=== PATIENT | male | born 1980 ===

== ENCOUNTER → 2019-12-29 13:33 | Outpatient (BNVA) | payer SELFPAY | PROVIDERS: PCP Internal Medicine; Referring Provider Internal Medicine; Visit Provider Nurse Practitioner | DX: Z76.89 Persons encountering health services in other specified circumstances (principal) ==

== ENCOUNTER → 2020-01-18 08:24 | Outpatient (REF) | payer OTHER, SELFPAY ==
--- NOTE | 2020-01-18 08:25 | NM_ITS ---
EXAMINATION: BILIARY TRACT IMAGING STUDY WITH CCK CLINICAL INFORMATION: Calculus of gallbladder without cholecystitis or obstruction.. COMPARISON: No previous biliary scan is available for comparison. Abdominal ultrasound dated 12/04/2019 is available for comparison.. TECHNIQUE: Serial gamma scintillation camera images were obtained over the abdomen for a total observation period of 120 minutes following the intravenous administration of 5 mCi Tc-99m Mebrofenin. FINDINGS: There is good concentration of activity in the liver by 5 minutes post injection. Biliary activity is visualized by 15 minutes. The gallbladder is well visualized by 50 minutes. Small bowel is well visualized by 20 minutes. At 85 minutes post radiopharmaceutical injection, a 30-minute infusion of 2.6 micrograms Sincalide was then begun and an additional 30 minutes of images were obtained. There is very minimal, if any gallbladder emptying during the sincalide infusion. At the end of the study there is marked abnormal retention of activity in the gallbladder. Diffuse small bowel activity is visualized at this time and there is almost complete clearance of activity from the liver. The calculated gallbladder ejection fraction is 6% (normal gallbladder ejection fraction is greater than 35%). NM/NM hepatobiliary w pharm IMPRESSION: 1. Visualization of the gallbladder is evidence of a patent cystic duct and strong evidence against the diagnosis of acute cholecystitis. The common bile duct is patent. Liver function appears normal. 2. Poor gallbladder emptying and a low gallbladder ejection fraction are evidence of impaired gallbladder contractility and most likely due to chronic cholecystitis.
== END ==
LOC: HO.NUCMED 08:24
PROVIDERS: PCP Internal Medicine; Visit Provider Nurse Practitioner
DX: K80.20 Calculus of gallbladder without cholecystitis without obstruction (principal)
CPT/HCPCS: 78227; A9537

== ENCOUNTER → 2020-02-06 15:51 | Outpatient (BNVA) | payer OTHER, SELFPAY | PROVIDERS: Visit Provider Nurse Practitioner | DX: Z76.89 Persons encountering health services in other specified circumstances (principal) ==

== ENCOUNTER → 2020-02-14 14:41 | Outpatient (BNVA) | payer OTHER, SELFPAY | PROVIDERS: PCP Internal Medicine; Visit Provider Surgery | DX: Z76.89 Persons encountering health services in other specified circumstances (principal) ==

== ENCOUNTER 2020-03-18 06:13 | Day surgery (SDC) | payer OTHER, SELFPAY ==
[2020-03-06 15:07] VITALS: BMI 38.7
--- NOTE | 2020-03-11 14:15 | P.CONAN_ITS ---
Documented by User: Shanda Jhaveri 03/11/20 14:16 HPI - Anesthesia Eval Consult details Narrative: 39yo M for Cholecystectomy Laparoscopic, Poss Open PMFSH Past Medical History Medical History Acalculous cholecystitis Diabetes mellitus Hypertension IBS (irritable bowel syndrome) Increased BMI HALI on CPAP Smoker Family History Family History Father Diabetes Mother Diabetes Sister Diabetes Surgical History Surgical History History of back surgery History of surgery Social History Social History Are you a primary auto care center manager to a significant other at home: No Do you presently have visiting nurse or other home services: No Alcohol intake: current Alcohol intake frequency: holidays/special occasions only Smoking Status: Current every day smoker Tobacco Type: Cigarette Packs Per Day: 0.5 Cigarettes Per Day: 10.0 Years Smoked: 25 Smoked in Last 30 Days: Yes Patient Interested in Nicotine Replacement: No Patient Given Instructions on How to Stop Smoking: Yes Date Education Initiated: 03/06/20 Use of substances other than those prescribed or required for medical reasons: No Have you been hit, kicked, punched, or otherwise hurt by someone within the past year? If so, by whom?: No Advance Directives: No Advance Directives Information Provided: No Advance Directives on File: No Recently lost weight without trying: No Meds Allergies Allergy/AdvReac Type Severity Reaction Status Date / Time No Known Allergies Allergy Verified 02/06/20 15:51 Home Medications Medication Instructions Recorded Confirmed Type hydrocortisone 2.5 % topical cream 1 applic IN BID-QID PRN 12/28/19 03/06/20 History with perineal applicator simethicone 180 mg capsule 180 mg PO QID PRN cap 12/28/19 03/06/20 History insulin degludec [Tresiba 25 unit SUBCUT DAILY 03/06/20 03/06/20 History FlexTouch U-100] Exam Exam Date and Time: March 11, 2020 1415 Height,Weight and Vital Signs: Height 6 ft Weight 129.727 kg Pertinent Lab Results Pertinent Lab Results: Laboratory Tests 12/04/19 12/04/19 09:06 09:06 WBC 8.0 Hgb 14.4 Hct 42.8 Plt Count 215 Sodium 136 Potassium 4.1 Chloride 104 BUN 11 Creatinine 0.67 Assessment and Plan Assessment Anesthesia Assessment: Chart Reviewed Documented by User: Selena Herrera 03/18/20 07:35 PMFSH Past Medical History Medical History Acalculous cholecystitis Diabetes mellitus Hypertension IBS (irritable bowel syndrome) Increased BMI HALI on CPAP Smoker Family History Family History Father Diabetes Mother Diabetes Sister Diabetes Family history of problems with anesthesia: No Surgical History Surgical History History of back surgery History of surgery History of Problems with Anesthesia: No Social History Social History Are you a primary auto care center manager to a significant other at home: No Do you presently have visiting nurse or other home services: No Alcohol intake: current Alcohol intake frequency: holidays/special occasions only Smoking Status: Current every day smoker Tobacco Type: Cigarette Packs Per Day: 0.5 Cigarettes Per Day: 10.0 Years Smoked: 25 Smoked in Last 30 Days: Yes Patient Interested in Nicotine Replacement: No Patient Given Instructions on How to Stop Smoking: Yes Date Education Initiated: 03/06/20 Use of substances other than those prescribed or required for medical reasons: No Have you been hit, kicked, punched, or otherwise hurt by someone within the past year? If so, by whom?: No Advance Directives: No Advance Directives Information Provided: No Advance Directives on File: No Recently lost weight without trying: No Meds Allergies Allergy/AdvReac Type Severity Reaction Status Date / Time No Known Allergies Allergy Verified 02/06/20 15:51 Home Medications Medication Instructions Recorded Confirmed Type hydrocortisone 2.5 % topical cream 1 applic IN BID-QID PRN 12/28/19 03/06/20 History with perineal applicator simethicone 180 mg capsule 180 mg PO QID PRN cap 12/28/19 03/06/20 History insulin degludec [Tresiba 25 unit SUBCUT DAILY 03/06/20 03/06/20 History FlexTouch U-100] Exam Height,Weight and Vital Signs: Vital Signs Temp Pulse Resp BP Pulse Ox 03/18/20 06:44 97.0 F 84 16 145/91 H 96 Pertinent Lab Results Pertinent Lab Results: Lab Results 03/18/20 Range/Units 06:42 POC Glucose 295 H (60-115) mg/dL Airway Mallampati Class: II (Teeth uneven, narrow palate anterior) TM Dist: >3cm Neck ROM: Full Loose/Missing/Broken Teeth: Yes (Broken topRight back) Heart: RRR Lungs: CTAB Assessment and Plan Assessment Anesthesia Assessment: Anesthesia Plan Discussed and Chart Reviewed Final Anesthetic Review NPO: Yes ASA Class: III Final Preanesthetic Review: No Changes in Pt Med Stat, Meds/Allgs Chart Reviewed, Consent Obtained/Reviewed and Anes Risks/Benef Reviewed Patient Risk: Intermediate Procedure Risk: Intermediate Anesthetic Plan Anesthetic Plan: GA Disposition: Extended PACU
[2020-03-18] VITALS (10 sets, daily range): BP systolic 125–156; BP diastolic 71–97; PULSE 82–95; RESP 16–24; TEMP 36.1–36.8; O2SAT 95–99
--- NOTE | 2020-03-18 | ECG_ITS ---
Test Reason : Smoker, HALI, IDDM Blood Pressure : / mmHG Vent. Rate : 088 BPM Atrial Rate : 088 BPM P-R Int : 136 ms QRS Dur : 098 ms QT Int : 356 ms P-R-T Axes : 048 037 007 degrees QTc Int : 430 ms Normal sinus rhythm Normal ECG No previous ECGs available Referred By: Shanda Jhaveri Electronically Signed By:Oscar Tirado
[2020-03-18 06:46] LABS: Glucose, Whole Blood 295 mg/dL (60-115)
[2020-03-18] MEDS: Lactated Ringers 1,000 ML 100 ML IVCONT (07:11)
--- NOTE | 2020-03-18 07:15 | MHC.SHP ---
Pre-Procedural Eval Section A The patient is an INPATIENT: No Changes since office visit: Yes Patient answered all questions; No Cold of Flu in the past 2 weeks, No New Medical Problems and No Changes in Medication The History & Physical has been completed within 30 days and I have reviewed it.: No Section B Chief Complaint: Chronic cholecystitis due to cholelithiasis Details of Present Illness: Abdominal pain in the right upper quadrant Relevant Family History (Specify if Yes): No Relevant Social History: Tobacco Use Present Medications: see Short Stay Collaborative assessment Medical History: No relevant PMH History of Previous Operations: No relevant previous surgery Allergies: Allergies Allergy/AdvReac Type Severity Reaction Status Date / Time No Known Allergies Allergy Verified 02/06/20 15:51 Review of Systems Sugical H&P ROS: Negative: Constitution, Cardiovascular, Respiratory, Neurological, Psychiatric, Hem-Onc, Allergic/Immunologic, Genitourinary, Musculoskeletal, Integumentary, Endocrine and Eyes/Ears/Nose/Throat and Yes, Specify: Gastrointestinal (cholecystitis) Exam Surgical H&P Exam: Normal: HEENT, Normal: Heart, Normal: Lungs, Normal: Extremities, Normal: Skin and Normal: Neurological and Significant Findings: Abdomen (abdominal tenderness in RUQ) Plan Diagnosis/Plan: Unchanged I have reviewed the history and physical and performed a pertinent physical examination on my patient. No changes have occurred unless specified.
--- NOTE | 2020-03-18 08:54 | P.BOP_ITS ---
Brief Operative Note Date of Service: 03/18/20 Pre-op diagnosis: Chronic cholecystitis, cholelithiasis Post-op diagnosis: same Procedure: Laparoscopic cholecystectomy Implants: None Surgeon: Yemi Katz MD Anesthesia: JEFF Cloth Bale Header: Dania Don Estimated blood loss (mL): 5 Pathology: other (Gallbladder) Condition: stable Disposition: PACU
--- NOTE | 2020-03-18 08:55 | P.OP_ITS ---
Operative Note Operative Note Date of Service: 03/18/20 Narrative: Preoperative diagnosis: Chronic cholecystitis, cholelithiasis Postoperative diagnosis: Same Procedure: Laparoscopic cholecystectomy Surgeon: Yemi Katz MD [employer] Crew Pusher: NIMO Gore Anesthesia: General endotracheal Indications for procedure: 39-year-old male patient presenting with complaints of abdominal pain in the right upper quadrant associated with fatty food intake found to have gallstones in the gallbladder. Patient presents for laparoscopic cholecystectomy Operative findings: Patient found to have evidence of chronic cholecystitis with a large gallstone at the neck of the gallbladder. Specimen: Gallbladder Estimated blood loss: 5 mL Complications: None Procedure details: Patient was brought to the OR and placed in a supine position. After administering general anesthesia the patient's abdomen was prepped with ChloraPrep and draped in a sterile fashion. Local anesthesia consisting of 0.75% Sensorcaine with epinephrine was infiltrated in a periumbilical region. A 5 mm incision was made above the umbilicus in a transverse fashion. The Veress needle was then inserted while elevating abdominal cavity with towel clips. After positive drop test the abdomen was in sufflated to a pressure of 15 mm of mercury. The Veress needle was then removed and a 5 mm trocar inserted. The camera was inserted in the abdomen explored. A 12 mm trocar was then placed in the epigastrium and 2 5 mm trocars placed in the right upper quadrant. The patient was placed in reverse Trendelenburg positioning and rotated to the left. The gallbladder was grasped with the fundus and retracted cephalad.. The infundibulum Was then grasped and retracted away from the liver bed. The Dolphin dissected was then used to dissect the peritoneum off the infundibulum to reveal the junction with the cystic duct. Cystic artery was noted slightly medial and posterior to the cystic duct. After obtaining a critical view the cystic duct was doubly clipped and divided. The cystic artery was then doubly clipped and divided. The gallbladder was then dissected off the liver bed using electrocautery with an L hook. Hemostasis was assured all times using the electrocautery. When the gallbladder is completely dissected off the liver bed was placed in an Endo- Catch bag and brought out through the epigastric incision. The gallbladder was sent to pathology for further examination. The abdomen was then re-examined. The liver bed was irrigated and suctioned dry. No bleeding or bile leak could be identified. CO2 was then evacuated and all trocars removed. Fascia was closed at the epigastric incision using a [id number] Polysorb suture. Skin was closed in all incisions using a subcuticular 4 0 Polysorb suture. Sterile dressings consisting of Steri-Strips, 2 x 2 gauze, and Tegaderm were then applied. The patient tolerated the procedure well. Sponge instrument and needle counts reported as correct. The patient was transferred to PACU in stable condition.
[2020-03-18] MEDS: ondansetron HCL 4 MG/2 ML VIAL IVPUSH (09:29)
[2020-03-18] MEDS: oxyCODONE HCl Immed Release 5 MG TABLET PO (10:00)
--- NOTE | 2020-03-18 11:27 | HO.POSTANES ---
Post Anesthesia Evaluation Post Anesthesia Evaluation Vital Signs: Vital Signs Temp Pulse Resp BP Pulse Ox 03/18/20 10:57 98.0 F 90 20 125/72 96 03/18/20 10:30 82 18 131/71 96 03/18/20 10:04 88 20 137/83 95 03/18/20 09:49 85 18 133/81 96 03/18/20 09:34 83 20 142/82 H 97 03/18/20 09:19 84 22 H 147/82 H 99 03/18/20 09:14 91 18 146/79 H 99 03/18/20 09:09 95 20 137/91 H 99 03/18/20 09:04 98.3 F 93 24 H 156/97 H 96 03/18/20 06:44 97.0 F 84 16 145/91 H 96 Anesthesia: General Endotracheal-GETA Mental Status: Awake Pain Control: Satisfactory Nausea/Vomiting: None Hydration: Adequate Anesthesia-Related Issues: No Anes. Related Issues
== END 2020-03-18 11:50 | disposition home or self-care (01) ==
PROVIDERS: PCP Internal Medicine; Visit Provider Surgery
PROC: 0FT44ZZ Resection of Gallbladder, Percutaneous Endoscopic Approach (ICD-10-PCS; CPT 47562; principal; 2020-03-18 07:30)
DX: K80.10 Calculus of gallbladder with chronic cholecystitis without obstruction (principal); I10 Essential (primary) hypertension; E11.9 Type 2 diabetes mellitus without complications; Z79.4 Long term (current) use of insulin; G47.33 Obstructive sleep apnea (adult) (pediatric); F17.210 Nicotine dependence, cigarettes, uncomplicated; Z79.899 Other long term (current) drug therapy
CPT/HCPCS: 47562; 82947; 88304; 93005; J0131; J1100; J1885; J2250; J2405; J3010

== ENCOUNTER → 2020-03-27 09:31 | Outpatient (BNVA) | payer OTHER, SELFPAY | PROVIDERS: PCP Internal Medicine; Visit Provider Surgery | DX: Z76.89 Persons encountering health services in other specified circumstances (principal) ==

== ENCOUNTER → 2020-05-07 14:20 | Outpatient (BNVA) | payer OTHER, SELFPAY | PROVIDERS: PCP Internal Medicine; Visit Provider Nurse Practitioner ==

== ENCOUNTER 2020-06-19 08:56 | Outpatient (REF) | payer OTHER, SELFPAY ==
[2020-06-19 10:43] LABS: Alanine Aminotransferase 32 U/L (0-40); Albumin Level 4.1 g/dL (3.5-5.0); Alkaline Phosphatase 81 U/L (39-117); Anion Gap 14 (12-20); Aspartate Amino Transferase 13 U/L (5-37); Bilirubin Total 0.6 mg/dL (0.0-1.0); Carbon Dioxide 28 mmol/L (22-29); Chloride 102 mmol/L (96-108); Cholesterol 213 mg/dL; Estimated Glomerular Filt Rate > 60; Glucose Fasting 326 mg/dL (60-99); HDL Cholesterol 51 mg/dL; LDL Cholesterol Calculated 139 mg/dl; Potassium 4.6 mmol/L (3.3-5.1); Sodium 139 mmol/L (135-145); Total Protein 7.1 g/dL (6.5-8.0); Triglycerides 116 mg/dL
[2020-06-19 10:50] LABS: Blood Urea Nitrogen 17 mg/dL (9-16)
[2020-06-24 12:51] LABS: Vitamin D 25-OH, D2 <4 ng/mL; Vitamin D 25-OH, D3 28 ng/mL; Vitamin D 25-OH, Total 28 ng/mL (30-100)
== END 2020-06-19 08:57 | disposition home or self-care (01) ==
LOC: HO.LAB 08:56
PROVIDERS: PCP Internal Medicine; Visit Provider Internal Medicine
DX: L72.0 Epidermal cyst (principal); E11.9 Type 2 diabetes mellitus without complications; E78.5 Hyperlipidemia, unspecified; E55.9 Vitamin D deficiency, unspecified
CPT/HCPCS: 36415; 80053; 80061; 82306

== ENCOUNTER → 2020-09-05 15:47 | Outpatient (BNVA) | payer OTHER, SELFPAY | PROVIDERS: PCP Internal Medicine; Referring Provider Internal Medicine; Visit Provider Nurse Practitioner ==

== ENCOUNTER 2020-10-16 08:34 | Outpatient (REF) | payer OTHER, SELFPAY | END 2020-10-16 08:35 | disposition home or self-care (01) | LOC: HO.LAB 08:34 | PROVIDERS: PCP Internal Medicine; Visit Provider Internal Medicine | DX: Z20.822 Contact with and (suspected) exposure to COVID-19 (principal) | CPT/HCPCS: C9803; U0003; U0005 ==

== ENCOUNTER → 2020-10-28 14:09 | Outpatient (BNVA) | payer OTHER, SELFPAY | PROVIDERS: PCP Internal Medicine; Visit Provider Nurse Practitioner ==

== ENCOUNTER 2020-12-02 08:20 | Emergency (ER) | payer OTHER, SELFPAY ==
[2020-12-02 08:25] VITALS: BP 162/93; PULSE 95; RESP 18; TEMP 36.6; O2SAT 99; BMI 39.3
[2020-12-02 08:33] LABS: Glucose, Whole Blood 291 mg/dL (60-115)
[2020-12-02 10:12] LABS: MANUAL DIFF FLAG NO
[2020-12-02 10:17] LABS: Basophils Percent Auto 0.3 % (0-2); Eosinophils Absolute Auto 0.1 X10*3/uL (0.0-0.4); Eosinophils Percent Auto 1.4 % (0-4); Hematocrit 42.6 % (42-52); Hemoglobin 14.6 g/dl (14.0-18.0); Imm Gran Abs Auto 0.02 X10*3/uL (0.00-0.03); Imm Gran Pct Auto 0.3 % (0.0-0.4); Lymphocytes Absolute Auto 1.4 X10*3/uL (1.2-4.9); Lymphocytes Percent Auto 18.4 % (20-40); Mean Corpuscular HGB Conc 34.3 g/dl (31.0-36.0); Mean Corpuscular Hemoglobin 29.5 pg (27.0-33.0); Mean Corpuscular Volume 86.1 fL (80-98); Mean Platelet Volume 9.2 fL (9.4-12.4); Monocytes Absolute Auto 0.6 X10*3/uL (0.1-1.2); Monocytes Percent Auto 7.5 % (2-11); Neutrophils Absolute Auto 5.3 X10*3/uL (2.0-8.3); Neutrophils Percent Auto 72.1 % (45-73); Platelet Count 204 X10*3/uL (160-400); Red Blood Count 4.95 X10*6/uL (4.60-5.80); Red Cell Distribution Width 12.7 % (11.0-16.0); White Blood Count 7.3 X10*3/uL (4.8-10.8)
[2020-12-02 10:38] LABS: Appearance Urine HAZY; Color Urine YELLOW; Glucose Urine UA >=1000 MG/DL (NEG); Leukocyte Esterase Urine NEG (NEG); Nitrite Urine NEG (NEG); Urine Blood NEG (NEG); Urine Ketones 5 MG/DL (NEG); Urine Protein NEG (NEG-TRACE)
[2020-12-02 10:42] LABS: Alanine Aminotransferase 30 U/L (0-40); Albumin Level 4.1 g/dL (3.5-5.0); Alkaline Phosphatase 69 U/L (39-117); Anion Gap 12 (12-20); Aspartate Amino Transferase 15 U/L (5-37); Bilirubin Total 0.4 mg/dL (0.0-1.0); Blood Urea Nitrogen 10 mg/dL (9-16); Calcium 8.8 mg/dL (8.4-10.2); Carbon Dioxide 23 mmol/L (22-29); Chloride 106 mmol/L (96-108); Creatinine Clr Calc Pharmacy 187.4; Estimated Glomerular Filt Rate > 60; Glucose Random 287 mg/dL (60-115); Potassium 4.2 mmol/L (3.3-5.1); Sodium 137 mmol/L (135-145); Total Protein 6.9 g/dL (6.5-8.0)
[2020-12-02 10:43] LABS: Acetone, serum QL Negative (Negative)
[2020-12-02 10:44] LABS: Magnesium 2.1 mg/dL (1.6-2.6)
--- NOTE | 2020-12-02 11:10 | ED.MALEGU ---
HPI - Male Genitourinary General Chief complaint: Skin/Abscess/Foreign Body Stated complaint: genital rash Time Seen by Provider: 12/02/20 09:19 Source: patient Mode of arrival: ambulatory Limitations: no limitations History of Present Illness HPI Narrative: 40-year-old male who is diabetic currently on p.o. diabetic medications and Insulin, HTN, HLD and IBS presenting to the ED with complaints of a rash to his penis for the past 2 days that he describes as itching and burning in sensation. He reports that last time this happened to him it was because he had high blood sugar. He reports that he is not tested his blood glucose level since yesterday. He reports that his blood glucose level had been in the 300s. Although he reports that he is not taking his p.o. diabetic medications because it upsets his stomach. Although he is taking his insulin. He denies any thoughts of STDs reports that he has been with his spouse for 15-20 years or more. He denies any other sexual partners. He denies any fevers, chills, dizziness, headaches, chest pain or shortness of breath, palpitations, nausea/vomiting/diarrhea/constipation, abdominal pain, back pain, dysuria, hematuria, increased urinary urgency/frequency, hematuria or any other complaints concerns at this time. Complaint: other (penile rash) Onset (ago): day(s) (Two days) Duration: constant Location: penis Severity: mild Quality: burning and other (Itchy) Relieving factors: none Exacerbating factors: none Associated symptoms: Reports other (Elevated glucose levels) Related Data Home Medications Medication Instructions Recorded Confirmed metformin 500 mg tablet,extended 2,000 mg PO BEDTIME 06/05/20 06/19/20 release 24 hr Previous Rx's Medication Instructions Recorded insulin degludec 100 unit/mL (3 30 unit SUBCUT DAILY 30 Days #9 ml 06/05/20 mL) subcutaneous pen (Tresiba FlexTouch U-100 insulin) lisinopril 5 mg tablet 5 mg PO DAILY 90 Days #90 tab 06/05/20 hydrocortisone 2.5 % topical cream 1 appl IN BID 30 Days #30 g 09/05/20 with perineal applicator (Proctosol HC) [id number] 1 cap PO .qid ac 30 Days #120 cap 10/28/20 24,000-76,000-120,000 unit capsule,delayed rel (Creon) simethicone 180 mg capsule 180 mg PO .tidac 30 Days #90 cap 10/28/20 clotrimazole 1 % topical ointment 1 appl TOPICAL TID 28 Days #56.7 g 12/02/20 fluconazole 150 mg tablet 150 mg PO Q3D #2 tab 12/02/20 (Diflucan) metronidazole 500 mg tablet 500 mg PO BID 7 Days #14 tab 12/02/20 (Flagyl) Allergies Allergy/AdvReac Type Severity Reaction Status Date / Time No Known Allergies Allergy Verified 09/05/20 16:03 Review of Systems Review of Systems: Constitutional : No Weight loss, No Fever, No Chills, No Night Sweats, No Fatigue, NoMalaise ENT/Mouth: No ear pain, No sore throat, No Difficulty swallowing Cardiovascular : No Chest Pain, No SOB, No Dyspnea on Exertion, No Orthopnea, NoEdema, No Palpitations Respiratory : No Cough, No Sputum, No Wheezing, No Dyspnea Gastrointestinal : No Nausea, No Vomiting, No Diarrhea, + abdominal Pain, No Hematochezia, No Melena Genitourinary : No testicular pain right-sided, No irregular bleeding, No Dysuria, No Urinary Frequency, No Hematuria,No Urinary Incontinence, No Urgency, No Flank Pain Musculoskeletal : No joint pain, No Myalgias, No Joint Swelling Skin : Positive rash to penis/foreskin, No other Skin Lesions/rash Neuro : No Weakness, No Numbness, No Paresthesias, No Loss of Consciousness, NoDizziness, No Headache Psych : No Social Issues, Heme/Lymph: No Bruising, No Bleeding,No Lymphadenopathy Endocrine : No Polyuria, No Polydipsia, No Temperature Intolerance PATIENT DENIES ANY THOUGHTS OF STDS Yes all other systems are reviewed and are negative [facility] Past Medical History Attestation statement: The following information was validated with the patient. Medical History Acalculous cholecystitis Chronic cholecystitis due to cholelithiasis with choledocholithiasis Diabetes mellitus Dyslipidemia Essential hypertension Gallstones Hypertension IBS (irritable bowel syndrome) Increased BMI Obese HALI on CPAP Smoker Upper abdominal pain Surgical History History of back surgery History of surgery Hx laparoscopic cholecystectomy (03/18/20) Family History Family History Father Diabetes Mother Diabetes HTN (hypertension) Sister Diabetes Other Heart problem Social History Social History Are you a primary health and social care teacher to a significant other at home: No Do you presently have visiting nurse or other home services: No Alcohol intake: current Alcohol intake frequency: holidays/special occasions only Years Smoked: 25 Advance Directives: No Physical Exam Vital Signs: Vital Signs: Last Vital Signs Temp 97.9 F 12/02/20 08:25 Pulse 95 12/02/20 08:25 Resp 18 12/02/20 08:25 BP 162/93 H 12/02/20 08:25 Pulse Ox 99 12/02/20 08:25 Body Mass Index 39.3 vital signs have been reviewed as normal and appeared to be correct. Blood pressure normal. Heart rate normal. Respiration rate normal. Temperature normal. Oxygen saturation normal. Appearance: Alert. Oriented X3. No acute distress. Head: Normal external exam. Normocephalic. Atraumatic. Eyes: PERRLA. EOMI. Conjunctiva and sclera normal. Eyelids normal. ENT: Pharynx normal. Uvula midline. Moist mucous membranes. Neck: Normal inspection. Neck supple. FROM. No adenopathy. CVS: Normal heart rate and rhythm. Heart sound normal. No murmurs noted. Pulses normal throughout. Respiratory: No respiratory distress. Painless inspiration. Breath sounds normal. No wheezes/rales/rhonchi noted. Chest nontender. No accessory muscle usage noted or decreased air movement noted. Abdomen: Soft and nontender. Bowel sounds normal in all 4 quadrants. No distention noted. No organomegaly noted. No visible injury noted. : Chaperoned by JULIA Champagne. Normal external exam. No ecchymosis/edema/erythema. No hernia noted. No inguinal lymphadenopathy noted. Patient has erythema with white-colored discharge around the glans of the penis and superficial ulcerations on an erythematous base that are tender to palpation most likely consistent with balanitis vs herpes. No Condyloma noted. No ecchymosis/erythema/swelling/edematous/mass/nodule/papules/pustules/vesicles. Not consistent with paraphimosis or phimosis. Normal meatus. No discharge from the meatus. No blood at the meatus. The scrotum is normal. Cremasteric reflex absent. No ecchymosis/edematous/erythema noted. Testicles are both descended bilaterally. No hydrocele noted. No inguinal hernia noted. No scrotal mass/swelling noted. No ulcerations or varicocele. Testicles appear normal. They lie normal. Epididymides normal. No blue dot sign. Testicles are not enlarged. No epididymal induration/mass/tenderness. No testicular mass noted. No testicular swelling/tenderness. No high-riding testicle noted. No testicular atrophy noted. Back: No CVA tenderness. Full range of motion noted. Skin: Skin warm and dry. Normal skin color. Normal skin turgor. No rashes/lesions/lacerations noted. Extremities: Extremities exhibit normal range of motion. Extremities nontender. Neuro: Oriented X 3. No motor deficit. No sensory deficit. Reflexes normal. Course Course Course Narrative: 40-year-old male who is diabetic currently on p.o. diabetic medications and Insulin, HTN, HLD and IBS presenting to the ED with complaints of a rash to his penis for the past 2 days that he describes as itching and burning in sensation. He reports that last time this happened to him it was because he had high blood sugar. He reports that he is not tested his blood glucose level since yesterday. He reports that his blood glucose level had been in the 300s. Although he reports that he is not taking his p.o. diabetic medications because it upsets his stomach. Although he is taking his insulin. He denies any thoughts of STDs reports that he has been with his spouse for 15-20 years or more. He denies any other sexual partners. On exam patient has erythema/superficial ulcerations/lesions and white cottage cheeselike discharge around the glans of the penis. Most likely consistent with herpes versus balanitis. Although patient reports he does not have a history of herpes and he has been with his significant other for multiple years. Therefore he does not believe he has an STD. Abdomen is soft and nontender. Labs were obtained and patient's blood glucose level 291 otherwise all other labs are within normal limits. UA revealed 1000 glucose otherwise no evidence of UTI. Acetone level is negative. Patient is pending for syphilis/herpes and gonorrhea chlamydia. Although we will treat for balanitis is patient does not have any thoughts for STDs. And I explained to the patient that we will call him if he has any positive results for STDs and to start taking his p.o. diabetic medications along with the insulin as both far just as important. He reports that he is following up with his primary care provider as well tomorrow. He denies any additional complaints or concerns at this time. Will DC home with treatment for balanitis and to return if any new or worsening symptoms. Patient understands agrees with this plan. MDM - Male Genitourinary Medical Records Attestation: I reviewed the patient's medical records. Lab Data Attestation: I reviewed the patient's lab results. Result diagrams: 12/02/20 10:06 12/02/20 10:05 Labs: Lab Results 12/02/20 12/02/20 12/02/20 Range/Units 08:30 10:05 10:05 WBC (4.8-10.8) X10*3/uL RBC (4.60-5.80) X10*6/uL Hgb (14.0-18.0) g/dl Hct (42-52) % MCV (80-98) fL MCH (27.0-33.0) pg MCHC (31.0-36.0) g/dl RDW (11.0-16.0) % Plt Count (160-400) X10*3/uL MPV (9.4-12.4) fL Immature Gran % (Auto) (0.0-0.4) % Neut % (Auto) (45-73) % Lymph % (Auto) (20-40) % [place] % (Auto) (2-11) % Eos % (Auto) (0-4) % Baso % (Auto) (0-2) % Lymph # (Auto) (1.2-4.9) X10*3/uL [place] # (Auto) (0.1-1.2) X10*3/uL Eos # (Auto) (0.0-0.4) X10*3/uL Baso # (Auto) (0.0-0.2) X10*3/uL Abs Immat Gran (auto) (0.00-0.03) X10*3/uL Absolute Neuts (auto) (2.0-8.3) X10*3/uL Absolute Nucleated RBC (0.0-0.012) X10*3/uL Nucleated RBC % (auto) (0.0-0.2) /100WBC Sodium 137 (135-145) mmol/L Potassium 4.2 (3.3-5.1) mmol/L Chloride 106 (96-108) mmol/L Carbon Dioxide 23 (22-29) mmol/L Anion Gap 12 (12-20) BUN 10 (9-16) mg/dL Creatinine 0.72 (0.5-1.4) mg/dL Estim Creat Clear Calc 187.4 Estimated GFR > 60 POC Glucose 291 H (60-115) mg/dL Random Glucose 287 H (60-115) mg/dL Calcium 8.8 (8.4-10.2) mg/dL Magnesium 2.1 (1.6-2.6) mg/dL Total Bilirubin 0.4 (0.0-1.0) mg/dL AST 15 (5-37) U/L ALT 30 (0-40) U/L Alkaline Phosphatase 69 (39-117) U/L Total Protein 6.9 (6.5-8.0) g/dL Albumin 4.1 (3.5-5.0) g/dL Urine Color Urine Appearance Urine pH (5.0-8.0) Ur Specific [place] (1.005-1.025) Urine Protein (NEG-TRACE) MG/DL Urine Glucose (UA) (NEG) MG/DL Urine Ketones (NEG) MG/DL Urine Blood (NEG) Urine Nitrite (NEG) Ur Leukocyte Esterase (NEG) Acetone, Qual Negative (Negative) 12/02/20 12/02/20 Range/Units 10:06 10:28 WBC 7.3 (4.8-10.8) X10*3/uL RBC 4.95 (4.60-5.80) X10*6/uL Hgb 14.6 (14.0-18.0) g/dl Hct 42.6 (42-52) % MCV 86.1 (80-98) fL MCH 29.5 (27.0-33.0) pg MCHC 34.3 (31.0-36.0) g/dl RDW 12.7 (11.0-16.0) % Plt Count 204 (160-400) X10*3/uL MPV 9.2 L (9.4-12.4) fL Immature Gran % (Auto) 0.3 (0.0-0.4) % Neut % (Auto) 72.1 (45-73) % Lymph % (Auto) 18.4 L (20-40) % [place] % (Auto) 7.5 (2-11) % Eos % (Auto) 1.4 (0-4) % Baso % (Auto) 0.3 (0-2) % Lymph # (Auto) 1.4 (1.2-4.9) X10*3/uL [place] # (Auto) 0.6 (0.1-1.2) X10*3/uL Eos # (Auto) 0.1 (0.0-0.4) X10*3/uL Baso # (Auto) 0.0 (0.0-0.2) X10*3/uL Abs Immat Gran (auto) 0.02 (0.00-0.03) X10*3/uL Absolute Neuts (auto) 5.3 (2.0-8.3) X10*3/uL Absolute Nucleated RBC 0.000 (0.0-0.012) X10*3/uL Nucleated RBC % (auto) 0.0 (0.0-0.2) /100WBC Sodium (135-145) mmol/L Potassium (3.3-5.1) mmol/L Chloride (96-108) mmol/L Carbon Dioxide (22-29) mmol/L Anion Gap (12-20) BUN (9-16) mg/dL Creatinine (0.5-1.4) mg/dL Estim Creat Clear Calc Estimated GFR POC Glucose (60-115) mg/dL Random Glucose (60-115) mg/dL Calcium (8.4-10.2) mg/dL Magnesium (1.6-2.6) mg/dL Total Bilirubin (0.0-1.0) mg/dL AST (5-37) U/L ALT (0-40) U/L Alkaline Phosphatase (39-117) U/L Total Protein (6.5-8.0) g/dL Albumin (3.5-5.0) g/dL Urine Color YELLOW Urine Appearance HAZY Urine pH 7.0 (5.0-8.0) Ur Specific [place] 1.020 (1.005-1.025) Urine Protein NEG (NEG-TRACE) MG/DL Urine Glucose (UA) >=1000 H (NEG) MG/DL Urine Ketones 5 (NEG) MG/DL Urine Blood NEG (NEG) Urine Nitrite NEG (NEG) Ur Leukocyte Esterase NEG (NEG) Acetone, Qual (Negative) Discharge Plan Discharge Clinical Impression: Balanitis Patient Disposition: Home, Self-Care Instructions: Justinanitis (ED) Additional Instructions: Your blood glucose level was 290 otherwise all your other blood work was within normal limits. Please start taking your pills for your diabetes as they are just as important as her insulin. You have pending lab results if any are positive you will be contacted. Follow up with her primary care provider and return if any new or worsening symptoms. Prescriptions: New clotrimazole 1 % ointment 1 appl topical TID 28 Days Qty: 56.7 RF: 1 metronidazole [Flagyl] 500 mg tablet 500 mg PO BID 7 Days Qty: 14 RF: 0 fluconazole [Diflucan] 150 mg tablet 150 mg PO Q3D Qty: 2 RF: 0 No Action metformin 500 mg tablet extended release 24 hr 2,000 mg PO BEDTIME RF: 0 Tresiba FlexTouch U-100 100 unit/mL (3 mL) insulin pen 30 unit subcut DAILY 30 Days Qty: 9 RF: 6 lisinopril 5 mg tablet 5 mg PO DAILY 90 Days Qty: 90 RF: 3 hydrocortisone [Proctosol HC] 2.5 % cream with perineal applicator 1 appl IN BID 30 Days Qty: 30 RF: 6 Creon 24,000-76,000 -120,000 unit capsule,delayed release(DR/EC) 1 cap PO .qid ac 30 Days Qty: 120 RF: 6 simethicone 180 mg capsule 180 mg PO .tidac 30 Days Qty: 90 RF: 6 Referrals: Linda Smith MD [Primary Care Provider] - 2 days Stand Alone Forms: Work/School Release Print Language: Citizen Of [place]
[2020-12-02 11:37] VITALS: BP 143/85; PULSE 81; RESP 16; TEMP 36.7; O2SAT 97
[2020-12-02 11:43] LABS: Syphilis Screen Nonreactive (Nonreactive)
[2020-12-02 11:56] LABS: RBC Urine 0 /HPF (0)
[2020-12-02 11:57] LABS: Amorphous Sediment Urine 1+ /LPF; Bacteria Urine TRACE /LPF; Squamous Epithelial Cell Urine 1+ /LPF
[2020-12-02 12:47] LABS: CT PCR NOT DETECTED (Not Detect.); NG PCR NOT DETECTED (Not Detect.)
== END 2020-12-02 11:40 | disposition home or self-care (01) ==
PROVIDERS: Physician Assistant Medical; Emergency Provider Emergency Medicine Emergency Medical Services; PCP Internal Medicine
DX: N48.1 Balanitis (principal); E11.9 Type 2 diabetes mellitus without complications; Z79.4 Long term (current) use of insulin; Z79.899 Other long term (current) drug therapy
CPT/HCPCS: 36415; 80053; 81001; 82009; 82947; 83735; 85025; 86780; 87255; 87491; 87591; 99283; 99284

== ENCOUNTER 2020-12-07 08:30 | Outpatient (REF) | payer OTHER, SELFPAY ==
[2020-12-07 09:25] LABS: Alanine Aminotransferase 40 U/L (0-40); Albumin Level 4.2 g/dL (3.5-5.0); Alkaline Phosphatase 71 U/L (39-117); Anion Gap 11 (12-20); Aspartate Amino Transferase 18 U/L (5-37); Bilirubin Total 0.6 mg/dL (0.0-1.0); Blood Urea Nitrogen 11 mg/dL (9-16); Carbon Dioxide 27 mmol/L (22-29); Chloride 104 mmol/L (96-108); Cholesterol 161 mg/dL; Estimated Glomerular Filt Rate > 60; Glucose Fasting 252 mg/dL (60-99); HDL Cholesterol 43 mg/dL; LDL Cholesterol Calculated 103 mg/dl; Potassium 4.5 mmol/L (3.3-5.1); Sodium 137 mmol/L (135-145); Total Protein 7.1 g/dL (6.5-8.0); Triglycerides 79 mg/dL
[2020-12-12 16:50] LABS: Vitamin D 25-OH, D2 <4 ng/mL; Vitamin D 25-OH, D3 31 ng/mL; Vitamin D 25-OH, Total 31 ng/mL (30-100)
== END 2020-12-07 08:31 | disposition home or self-care (01) ==
LOC: HO.LAB 08:30
PROVIDERS: PCP Internal Medicine; Visit Provider Internal Medicine
DX: I10 Essential (primary) hypertension (principal); E78.5 Hyperlipidemia, unspecified; E55.9 Vitamin D deficiency, unspecified
CPT/HCPCS: 36415; 80053; 80061; 82306

== ENCOUNTER 2021-01-31 07:28 | Emergency (ER) | payer OTHER, SELFPAY ==
--- NOTE | ~2021-01-31 | XR_ITS ---
EXAMINATION: XR CHEST CLINICAL INFORMATION: Cough COMPARISON: None TECHNIQUE: 2 views of the chest were obtained. FINDINGS: The lungs are clear. No airspace consolidation or groundglass opacity or effusion. The heart is normal in size. The hilar and mediastinal contours are normal. There is dextrocurvature and mild degenerative changes thoracic spine. XR/XR chest 2V IMPRESSION: Lungs clear.
[2021-01-31 08:01] VITALS: BP 140/83; PULSE 100; RESP 18; TEMP 37; O2SAT 95; BMI 40.0
[2021-01-31 08:28] LABS: COVID-19 Test Negative (Negative)
--- NOTE | 2021-01-31 09:02 | ED.URI ---
HPI - URI/Sore Throat General Chief Complaint: Upper Respiratory Symptoms Stated Complaint: flu like symptoms Time Seen by Provider: 01/31/21 07:32 Source: patient Mode of arrival: ambulatory Limitations: no limitations History of Present Illness MD elicited complaint: cough Pertinent past history: other (bronchitis) Onset (ago): day(s) (3) Consistency: constant Severity: moderate Description of mucous: clear and bloody (one time scant streaked) Able to tolerate fluids by mouth: Yes Exacerbating factors: exertion and other (coughing) Relieving factors: nothing Associated symptoms: cough Treatments prior to arrival: none Related Data Home Medications Medication Instructions Recorded Confirmed metformin 500 mg tablet,extended 2,000 mg PO BEDTIME 06/05/20 12/11/20 release 24 hr Previous Rx's Medication Instructions Recorded hydrocortisone 2.5 % topical cream 1 appl [place] BID 30 Days #30 g 09/05/20 with perineal applicator (Proctosol HC) [id number] 1 cap PO .qid ac 30 Days #120 cap 10/28/20 24,000-76,000-120,000 unit capsule,delayed rel (Creon) simethicone 180 mg capsule 180 mg PO .tidac 30 Days #90 cap 10/28/20 clotrimazole 1 % topical ointment 1 appl TOPICAL TID 28 Days #56.7 g 12/02/20 fluconazole 150 mg tablet 150 mg PO Q3D #2 tab 12/02/20 (Diflucan) metronidazole 500 mg tablet 500 mg PO BID 7 Days #14 tab 12/02/20 (Flagyl) atorvastatin 20 mg tablet 20 mg PO BEDTIME 90 Days #90 tab 12/03/20 insulin degludec 100 unit/mL (3 35 unit (0.35 mL) SUBCUT DAILY 30 12/03/20 mL) subcutaneous pen (Tresiba Days #10.5 ml FlexTouch U-100 insulin) lisinopril 10 mg tablet 10 mg PO DAILY 90 Days #90 tab 12/03/20 nystatin 100,000 unit/gram topical 1 appl TOPICAL BID 14 Days #30 g 12/07/20 cream valacyclovir 1 gram tablet 1,000 mg PO BID 10 Days #20 tab 12/07/20 azithromycin 250 mg tablet See Rx Instructions .ROUTE 01/31/21 .COMPLEX #6 tab benzonatate 100 mg capsule 100 mg PO TID PRN #20 cap 01/31/21 prednisone 20 mg tablet 40 mg PO DAILY 5 Days #10 tab 01/31/21 Allergies Allergy/AdvReac Type Severity Reaction Status Date / Time No Known Allergies Allergy Verified 01/31/21 08:01 Review of Systems Review of Systems: Constitutional : No Fever, No Chills ENT/Mouth : No Hoarseness, No sore throat, No Rhinorrhea Eyes: No Redness, No Discharge, No Vision Changes Cardiovascular : No Chest Pain, positive SOB, no Dyspnea on Exertion, No Edema Respiratory : positive Cough, pos Sputum, positive Wheezing, Gastrointestinal : No Nausea, No Vomiting, No Diarrhea, No abdominal Pain Genitourinary : No Dysuria, No Hematuria Musculoskeletal : No joint pain, No Myalgias Skin : No rash Neuro : No Weakness, No Numbness, No Headache Psych : No anxiety, depression Heme/Lymph: No Bruising, No Bleeding Endocrine : No Polyuria, No Polydipsia All other systems reviewed and are negative [facility] Past Medical History Attestation statement: The following information was validated with the patient. Medical History Acalculous cholecystitis Chronic cholecystitis due to cholelithiasis with choledocholithiasis Diabetes mellitus Dyslipidemia Essential hypertension Essential hypertension Gallstones HSV-2 (herpes simplex virus 2) infection IBS (irritable bowel syndrome) Increased BMI Obese HALI on CPAP Severe obesity with body mass index (BMI) of 35.0 to 39.9 with comorbidity Smoker Upper abdominal pain Surgical History History of back surgery History of surgery Hx laparoscopic cholecystectomy (03/18/20) Family History Family History Father Diabetes Mother Diabetes HTN (hypertension) Sister Diabetes Other Heart problem Social History Social History Housing: House Are you a primary career based intervention coordinator to a significant other at home: No Do you presently have visiting nurse or other home services: No Alcohol intake: current Alcohol intake frequency: holidays/special occasions only Patient Tobacco Use Status: Former Tobacco user Tobacco use type: Cigarette Years Smoked: 25 e-Cigarette/Vaping Use: Currently Using Second Hand Smoke Exposure: No Advance Directives: No service: No Current occupational status: employed Current occupational exposures/hazards: No Physical Exam Vital Signs: Vital Signs: Last Vital Signs Temp 98.6 F 01/31/21 08:01 Pulse 100 01/31/21 08:01 Resp 18 01/31/21 08:01 BP 140/83 H 01/31/21 08:01 Pulse Ox 95 01/31/21 08:01 Body Mass Index 40.0 Appearance: Alert. Oriented X3. No acute distress. Eyes: Pupils equal, round and reactive to light. ENT: Pharynx normal. Neck: Normal inspection. Neck supple. CVS: Normal heart rate and rhythm. Pulses normal. Respiratory: No respiratory distress. Breath sounds rhonchi noted posteriorly, dry cough Abdomen: Soft and nontender. Skin: Skin warm and dry. Normal skin color. Normal skin turgor. Extremities: No lower extremity edema. No calf ttp Neuro: Oriented X 3. No motor deficit. No sensory deficit. MDM - URI/Sore Throat MDM Narrative Medical decision making narrative: 40 yo male with hx of HTN, HLD, DM here with bronchospastic cough for 3 days hx of bronchitis in the past noted yesterday he coughed hard and noted scant streak of blood in the sputum at this time will need COVID swab and CXR suspect bronchitis he is PERC negative - INH, steroids (discussed BS ride) azithromycin DC home no hypoxia and no resp distress Lab Data Labs: Lab Results 01/31/21 Range/Units 07:47 COVID-19 ([facility]) Negative (Negative) COVID-19 Clin Com See Note Discharge Plan Discharge Clinical Impression: Bronchitis Patient Disposition: Home, Self-Care Instructions: Acute Bronchitis (ED) Additional Instructions: return to ED for any worsening symptoms or concerns 2 PUFFS INHALER EVERY 4 HOURS FOR COUGH NEGATIVE COVID Prescriptions: New azithromycin 250 mg tablet See Rx Instructions .ROUTE .COMPLEX Qty: 6 RF: 0 benzonatate 100 mg capsule 100 mg PO TID PRN (Reason: cough) Qty: 20 RF: 0 prednisone 20 mg tablet 40 mg PO DAILY 5 Days Qty: 10 RF: 0 No Action clotrimazole 1 % ointment 1 appl topical TID 28 Days Qty: 56.7 RF: 1 metronidazole [Flagyl] 500 mg tablet 500 mg PO BID 7 Days Qty: 14 RF: 0 fluconazole [Diflucan] 150 mg tablet 150 mg PO Q3D Qty: 2 RF: 0 nystatin 100,000 unit/gram cream 1 appl topical BID 14 Days Qty: 30 RF: 0 valacyclovir 1 gram tablet 1,000 mg PO BID 10 Days Qty: 20 RF: 0 metformin 500 mg tablet extended release 24 hr 2,000 mg PO BEDTIME RF: 0 atorvastatin 20 mg tablet 20 mg PO BEDTIME 90 Days Qty: 90 RF: 1 Tresiba FlexTouch U-100 100 unit/mL (3 mL) insulin pen 35 unit subcut DAILY 30 Days Qty: 10.5 RF: 6 lisinopril 10 mg tablet 10 mg PO DAILY 90 Days Qty: 90 RF: 1 hydrocortisone [Proctosol HC] 2.5 % cream with perineal applicator 1 appl [place] BID 30 Days Qty: 30 RF: 6 Creon 24,000-76,000 -120,000 unit capsule,delayed release(DR/EC) 1 cap PO .qid ac 30 Days Qty: 120 RF: 6 simethicone 180 mg capsule 180 mg PO .tidac 30 Days Qty: 90 RF: 6 Referrals: Linda Smith MD [Primary Care Provider] - 3 days (if not better) Stand Alone Forms: Work/School Release Print Language: Indonesian
[2021-01-31] MEDS: Albuterol Sulfate 90 MCG 8 GM INHALER 2 PUFF INHALE (09:18)
[2021-01-31 09:24] VITALS: PULSE 100; O2SAT 95
== END 2021-01-31 09:29 | disposition home or self-care (01) ==
PROVIDERS: Emergency Provider Emergency Medicine; PCP Internal Medicine
DX: J20.9 Acute bronchitis, unspecified (principal); Z20.822 Contact with and (suspected) exposure to COVID-19
CPT/HCPCS: 36415; 71046; 87635; 94640; 94664; 99283; 99284

== ENCOUNTER → 2021-02-14 08:31 | Outpatient (BNVA) | payer OTHER, SELFPAY | PROVIDERS: PCP Internal Medicine; Visit Provider Nurse Practitioner ==

== ENCOUNTER 2021-02-19 09:31 | Emergency (ER) | payer OTHER, SELFPAY ==
--- NOTE | ~2021-02-19 | XR_ITS ---
EXAMINATION: XR WRIST, RIGHT CLINICAL INFORMATION: Wrist pain for months COMPARISON: None TECHNIQUE: Four views of the right wrist. FINDINGS: There is no fracture or dislocation. The carpal rows are well aligned. Degenerative change at the distal radioulnar joint with narrowing and sclerosis. Osteophytes noted. The soft tissues are unremarkable. XR/XR wrist RT 2V IMPRESSION: No acute abnormality. Degenerative change of the distal radioulnar joint.
[2021-02-19 10:27] VITALS: BP 143/95; PULSE 111; RESP 18; TEMP 36.6; O2SAT 99; BMI 40.0
[2021-02-19] MEDS: Tetracaine HCl/PF 0.5% Oph Sol 4 ML DROPS 3 DROP EYE-LEFT (12:25)
[2021-02-19] MEDS: Fluorescein Sodium STRIP 1 STRIP EYE-LEFT (12:25)
--- NOTE | 2021-02-19 13:06 | ED.GENADULT ---
HPI - General Adult General Chief complaint: Eye Problems Stated complaint: eye pain/wrist pain Time Seen by Provider: 02/19/21 10:50 Source: patient Mode of arrival: ambulatory History of Present Illness HPI narrative: 40-year-old male with a past medical history of diabetes, dyslipidemia, HTN, HALI on CPAP, IBS, presenting to the ED complaining of left eye irritation, burning, erythema, tearing, and mild pruritus since yesterday. 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 Reports mild blurry vision, denies visual loss or pain with EOMs. Also reports acute on chronic right wrist pain x months s/p injury while at work however was never seen varied reports clicking sound with movement. Denies headache, numbness, tingling. 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 Onset (ago): day(s) Related Data Home Medications Medication Instructions Recorded Confirmed metformin 500 mg tablet,extended 2,000 mg PO BEDTIME 06/05/20 12/11/20 release 24 hr Previous Rx's Medication Instructions Recorded clotrimazole 1 % topical ointment 1 appl TOPICAL TID 28 Days #56.7 g 12/02/20 fluconazole 150 mg tablet 150 mg PO Q3D #2 tab 12/02/20 (Diflucan) atorvastatin 20 mg tablet 20 mg PO BEDTIME 90 Days #90 tab 12/03/20 insulin degludec 100 unit/mL (3 35 unit (0.35 mL) SUBCUT DAILY 30 12/03/20 mL) subcutaneous pen (Tresi Days #10.5 ml FlexTouch U-100 insulin) lisinopril 10 mg tablet 10 mg PO DAILY 90 Days #90 tab 12/03/20 nystatin 100,000 unit/gram topical 1 appl TOPICAL BID 14 Days #30 g 12/07/20 cream valacyclovir 1 gram tablet 1,000 mg PO BID 10 Days #20 tab 12/07/20 azithromycin 250 mg tablet See Rx Instructions .ROUTE 01/31/21 .COMPLEX #6 tab benzonatate 100 mg capsule 100 mg PO TID PRN #20 cap 01/31/21 prednisone 20 mg tablet 40 mg PO DAILY 5 Days #10 tab 01/31/21 hydrocortisone 2.5 % topical cream 1 appl [place] BID 30 Days #30 g 02/14/21 with perineal applicator (Proctosol HC) [id number]-[id number] 1 cap PO .qid ac 30 Days #120 cap 02/14/21 24,000-76,000-120,000 unit capsule,delayed rel (Creon) simethicone 180 mg capsule 180 mg PO .tidac 30 Days #90 cap 02/14/21 olopatadine 0.1 % eye drops 1 drp OPHTHALMIC (EYE) BID #5 ml 02/19/21 Allergies Allergy/AdvReac Type Severity Reaction Status Date / Time No Known Allergies Allergy Verified 02/14/21 08:32 Review of Systems Review of Systems: Constitutional: No Fever, No Chills, No Fatigue, No Malaise ENT/Mouth: No Ear Pain, No Nasal Congestion, No Sinus Pain, No Hoarseness, No sore throat, No Rhinorrhea Eyes: + Eye irritation, No Swelling, + Redness, No Foreign Body, + Discharge, + Vision Changes Cardiovascular: No Chest Pain, No SOB Respiratory: No Cough, No Dyspnea Gastrointestinal: No Nausea, No Vomiting, No Diarrhea, No Constipation, No Abdominal pain Genitourinary: No Dysuria, No Urinary Frequency, No Hematuria,No Flank Pain Musculoskeletal: + joint pain, No Myalgias, No Joint Swelling Skin: No Skin Lesions, No rash Neuro: No Weakness, No Numbness, No Paresthesias Yes all other systems are reviewed and are negative [facility] Past Medical History Attestation statement: The following information was validated with the patient. Medical History Acalculous cholecystitis Chronic cholecystitis due to cholelithiasis with choledocholithiasis Diabetes mellitus Dyslipidemia Essential hypertension Essential hypertension Gallstones HSV-2 (herpes simplex virus 2) infection IBS (irritable bowel syndrome) Increased BMI Obese HALI on CPAP Severe obesity with body mass index (BMI) of 35.0 to 39.9 with comorbidity Smoker Upper abdominal pain Surgical History History of back surgery History of surgery Hx laparoscopic cholecystectomy (03/18/20) Family History Family History Father Diabetes Mother Diabetes HTN (hypertension) Sister Diabetes Other Heart problem Social History Social History Housing: House Are you a primary managed care specialist to a significant other at home: No Do you presently have visiting nurse or other home services: No Alcohol intake: current Alcohol intake frequency: holidays/special occasions only Patient Tobacco Use Status: Former Tobacco user Tobacco use type: Cigarette Years Smoked: 25 e-Cigarette/Vaping Use: Currently Using Second Hand Smoke Exposure: No Advance Directives: No Advance Directives Information Provided: No service: No Current occupational status: employed Current occupational exposures/hazards: No Physical Exam Vital Signs: Vital Signs: Last Vital Signs Temp 97.8 F 02/19/21 10:27 Pulse 111 H 02/19/21 10:27 Resp 18 02/19/21 10:27 BP 143/95 H 02/19/21 10:27 Pulse Ox 99 02/19/21 10:27 BMI result Body Mass Index 40.0 Const: General: cooperative, healthy appearing and no acute distress Orientation/consciousness: patient oriented x3 Limitations: no limitations HENMT: Head: Yes normal to inspection and Yes atraumatic Ears: hearing grossly normal bilaterally General nose exam: Normal external nose present Face and sinus: Yes normal facial exam Eyes: Other: Intra-ocular pressure 14, 17, 17 to left eye General: appearance normal, both eyes and all related structures Periorbital: periorbital findings normal Eyelids: Yes eyelids normal Conjunctivae: conjunctival abnormal left conjunctival injection (Inferior aspect) and discharge (Clear) Sclerae: sclerae normal Corneas: corneas normal and fluorescein used (No fluorescein uptake. No appreciable corneal abrasions) Pupils: Equal, round and reactive pupils present EOM: EOMs intact bilaterally Direct Ophthalmoscopy: normal light reflex and no photophobia Neck: Neck: Yes normal visual inspection, Yes no lymphadenopathy, Yes no meningeal signs, Yes supple and No anterior neck swelling Resp: Effort & Inspection: normal respiratory effort and no respiratory distress Cardio: Rate: regular rate Heart sounds: S1 normal heart sound present and S2 normal heart sound present Skin: Rashes: no rashes Wounds: no wounds Neuro: General: patient oriented x3, tone normal and no meningeal signs Cranial nerves: Yes Equal, round and reactive pupils present Gait exam (Neuro): Normal gait present Extrem: Other: Right wrist with mild tenderness to radial aspect. No swelling/deformity or erythema. No snuffbox tenderness. Full range of motion intact. Hand nontender with full range of motion intact. Tivgxi-fw-xgjut opposition intact. Neurovascularly intact distally General: Yes normal to inspection Course Course Course Narrative: XR wrist RT 2V IMPRESSION: No acute abnormality. Degenerative change of the distal radioulnar joint. >> results discussed with patient is to follow-up with PCP Medical Decision Making MDM Narrative Medical decision making narrative: 40-year-old male with a past medical history of diabetes, dyslipidemia, HTN, HALI on CPAP, IBS, presenting to the ED complaining of left eye irritation, burning, erythema, tearing, and mild pruritus since yesterday. Also reports acute on chronic right wrist pain x months s/p injury while at work however was never seen varied reports clicking sound with movement. On exam VSS, NAD, well appearing, visual acuity 20/40 left eye, 20/70 right eye without corrective lenses, mild left conjunctival injection noted, no fluorescein uptake, likely allergic conjunctivitis. Right wrist with mild tenderness, no snuffbox tenderness will obtain x-ray Discharge Plan Discharge Clinical Impression: Acute allergic conjunctivitis Qualifiers: Laterality: left Qualified Code(s): H10.12 - Acute atopic conjunctivitis, left eye Pain in wrist Qualifiers: Laterality: right Qualified Code(s): M25.531 - Pain in right wrist Patient Disposition: Home, Self-Care Instructions: Wrist Injury (ED), Conjunctivitis (ED) Additional Instructions: Your wrist x-rays are unremarkable, take Tylenol and Motrin as needed, ice and heat Use Olopatadine eyedrops as prescribed If your eye symptoms persist or worsen, he develops any visual loss, pain with eye movement, fever, chills, or foreign body sensation in your eyes please return to the ED immediately Please follow-up with Ophthalmology as needed Prescriptions: New olopatadine 0.1 % drops 1 drp ophthalmic (eye) BID Qty: 5 RF: 0 No Action clotrimazole 1 % ointment 1 appl topical TID 28 Days Qty: 56.7 RF: 1 fluconazole [Diflucan] 150 mg tablet 150 mg PO Q3D Qty: 2 RF: 0 nystatin 100,000 unit/gram cream 1 appl topical BID 14 Days Qty: 30 RF: 0 valacyclovir 1 gram tablet 1,000 mg PO BID 10 Days Qty: 20 RF: 0 azithromycin 250 mg tablet See Rx Instructions .ROUTE .COMPLEX Qty: 6 RF: 0 benzonatate 100 mg capsule 100 mg PO TID PRN (Reason: cough) Qty: 20 RF: 0 prednisone 20 mg tablet 40 mg PO DAILY 5 Days Qty: 10 RF: 0 metformin 500 mg tablet extended release 24 hr 2,000 mg PO BEDTIME RF: 0 atorvastatin 20 mg tablet 20 mg PO BEDTIME 90 Days Qty: 90 RF: 1 Tresiba FlexTouch U-100 100 unit/mL (3 mL) insulin pen 35 unit subcut DAILY 30 Days Qty: 10.5 RF: 6 lisinopril 10 mg tablet 10 mg PO DAILY 90 Days Qty: 90 RF: 1 hydrocortisone [Proctosol HC] 2.5 % cream with perineal applicator 1 appl [place] BID 30 Days Qty: 30 RF: 6 Creon 24,000-76,000 -120,000 unit capsule,delayed release(DR/EC) 1 cap PO .qid ac 30 Days Qty: 120 RF: 6 simethicone 180 mg capsule 180 mg PO .tidac 30 Days Qty: 90 RF: 6 Referrals: Cristofer De La Torre [Physician] - 5 days Linda Smith MD [Primary Care Provider] - 2 days
== END 2021-02-19 13:34 | disposition home or self-care (01) ==
PROVIDERS: Emergency Provider Emergency Medicine; PCP Internal Medicine
DX: H10.12 Acute atopic conjunctivitis, left eye (principal); M25.531 Pain in right wrist; E11.9 Type 2 diabetes mellitus without complications; I10 Essential (primary) hypertension
CPT/HCPCS: 73100; 99283; 99284

== ENCOUNTER 2021-03-18 11:52 | Emergency (ER) | payer OTHER, SELFPAY ==
--- NOTE | 2021-03-18 | ECG_ITS ---
Test Reason : heart palpitations Blood Pressure : / mmHG Vent. Rate : 131 BPM Atrial Rate : 131 BPM P-R Int : 134 ms QRS Dur : 088 ms QT Int : 294 ms P-R-T Axes : 059 040 -02 degrees QTc Int : 434 ms Sinus tachycardia Possible Left atrial enlargement Borderline ECG When compared with ECG of 18-MAR-2020 06:34, Vent. rate has increased BY 43 BPM Referred By: Generic ED Physician Electronically Signed By:SONJA MAC MD
--- NOTE | ~2021-03-18 | XR_ITS ---
EXAMINATION: XR CHEST CLINICAL INFORMATION: Covid infection and cough COMPARISON: Previous chest x-ray January 2021 TECHNIQUE: 2 views of the chest were obtained. FINDINGS: The cardiac and mediastinal contours are stable. The lungs are clear. There is no pleural effusion or pneumothorax. There are degenerative changes of the spine and curvature of the midthoracic spine to the right. XR/XR chest 2V IMPRESSION: No evidence for acute disease in the chest.
[2021-03-18 13:34] VITALS: BP 151/88; PULSE 136; RESP 22; TEMP 37.3; O2SAT 95; BMI 40.0
[2021-03-18 13:55] LABS: COVID-19 Test Positive (Negative)
== END 2021-03-18 18:45 | disposition left against medical advice (07) ==
PROVIDERS: Emergency Provider Emergency Medicine; PCP Internal Medicine
DX: U07.1 COVID-19 (principal); R50.9 Fever, unspecified
CPT/HCPCS: 71046; 87635; 93005; 99283

== ENCOUNTER → 2021-08-15 10:26 | Outpatient (BNVA) | payer OTHER, SELFPAY | PROVIDERS: PCP Internal Medicine; Referring Provider Internal Medicine; Visit Provider Nurse Practitioner | DX: Z13.89 Encounter for screening for other disorder (principal) ==

== ENCOUNTER 2022-01-17 07:56 | Outpatient (REF) | payer OTHER, SELFPAY ==
[2022-01-17 09:16] LABS: Alanine Aminotransferase 27 U/L (0-40); Albumin Level 4.1 g/dL (3.5-5.0); Alkaline Phosphatase 70 U/L (39-117); Anion Gap 14 (12-20); Aspartate Amino Transferase 17 U/L (5-37); Bilirubin Total 0.6 mg/dL (0.0-1.0); Blood Urea Nitrogen 13 mg/dL (9-16); Calcium 8.9 mg/dL (8.4-10.2); Carbon Dioxide 25 mmol/L (22-29); Chloride 105 mmol/L (96-108); Cholesterol 184 mg/dL; Estimated Glomerular Filt Rate > 60; Glucose Fasting 200 mg/dL (60-99); HDL Cholesterol 44 mg/dL; LDL Cholesterol Calculated 127 mg/dl; Potassium 4.2 mmol/L (3.3-5.1); Sodium 140 mmol/L (135-145); Total Protein 6.9 g/dL (6.5-8.0); Triglycerides 69 mg/dL
== END 2022-01-17 07:57 | disposition home or self-care (01) ==
LOC: HO.LAB 07:56
PROVIDERS: PCP Internal Medicine; Visit Provider Internal Medicine
DX: Z00.00 Encounter for general adult medical examination without abnormal findings (principal); E78.5 Hyperlipidemia, unspecified
CPT/HCPCS: 36415; 80053; 80061

== ENCOUNTER 2022-06-02 07:45 | Day surgery (SDC) | payer OTHER, SELFPAY ==
[2022-05-27 11:07] VITALS: BMI 39.6
--- NOTE | 2022-06-01 11:50 | HO.ANESPROP2 ---
Documented by User: Shanda Jhaveri NP 06/01/22 11:51 HPI - Anesthesia Eval Consult details Narrative: 41yo M for Colonoscopy PMFSH Active Problems Active Problems: All Active Problems (Updated 01/06/22 @ 16:51 by Linda Boyer MD) Physical exam (Acute) Post-cholecystectomy syndrome (Acute) HSV (herpes simplex virus) infection (Acute) Morbid obesity with body mass index (BMI) of 40.0 to 44.9 in adult (Acute) Screening for hypothyroidism (Acute) HSV-2 (herpes simplex virus 2) infection (Acute) Balanitis (Acute) Severe obesity with body mass index (BMI) of 35.0 to 39.9 with comorbidity (Acute) Essential hypertension (Acute) IBS (irritable bowel syndrome) (Acute) Epidermal inclusion cyst (Acute) Dyslipidemia (Acute) Diabetes mellitus (Acute) Hx laparoscopic cholecystectomy (Acute 03/18/20) Increased BMI (Acute) Hematochezia (Acute) Hemorrhoids (Acute) Abdominal bloating (Acute) Past Medical History Medical History Acalculous cholecystitis Chronic cholecystitis due to cholelithiasis with choledocholithiasis Essential hypertension Gallstones Obese HALI on CPAP Smoker Upper abdominal pain Family History Family History Father Diabetes Mother Diabetes HTN (hypertension) Sister Diabetes Other Heart problem Family history of problems with anesthesia: No Surgical History Surgical History History of back surgery History of surgery Hx laparoscopic cholecystectomy (03/18/20) History of Problems with Anesthesia: No Social History Social History Housing: House Are you a primary career development consultant to a significant other at home: No Do you presently have visiting nurse or other home services: No Alcohol intake: current Alcohol intake frequency: does not drink Alcohol type: beer Patient Tobacco Use Status: Former Tobacco user Tobacco use type: Cigarette Years Smoked: 25 e-Cigarette/Vaping Use: Currently Using Second Hand Smoke Exposure: No Use of substances other than those prescribed or required for medical reasons: No Are you DNR?: No Advance Directives: No Advance Directives Information Provided: Yes service: No Current occupational status: employed Current occupational exposures/hazards: No Cognitive needs: No Hearing needs: No Vision needs: No Meds Allergies Allergy/AdvReac Type Severity Reaction Status Date / Time No Known Allergies Allergy Verified 01/06/22 16:48 Exam Exam Date and Time: June 01, 2022 1150 Height,Weight and Vital Signs: Height 6 ft Weight 132.449 kg Pertinent Lab Results Pertinent Lab Results: Laboratory Tests 01/17/22 08:12 Sodium 140 Potassium 4.2 Chloride 105 Carbon Dioxide 25 BUN 13 Creatinine 0.74 Assessment and Plan Assessment Anesthesia Assessment: Chart Reviewed Final Anesthetic Review Family History of Problems with Anesthesia: No History of Problems with Anesthesia: No Documented by User: Haley Calixto MD 06/02/22 10:30 [facility] Past Medical History Medical History Acalculous cholecystitis Chronic cholecystitis due to cholelithiasis with choledocholithiasis Essential hypertension Gallstones Obese HALI on CPAP Smoker Upper abdominal pain Family History Family History Father Diabetes Mother Diabetes HTN (hypertension) Sister Diabetes Other Heart problem Surgical History Surgical History History of back surgery History of surgery Hx laparoscopic cholecystectomy (03/18/20) Social History Social History Housing: House Are you a primary career development consultant to a significant other at home: No Do you presently have visiting nurse or other home services: No Alcohol intake: current Alcohol intake frequency: does not drink Alcohol type: beer Patient Tobacco Use Status: Former Tobacco user Tobacco use type: Cigarette Years Smoked: 25 e-Cigarette/Vaping Use: Currently Using Second Hand Smoke Exposure: No Use of substances other than those prescribed or required for medical reasons: No Are you DNR?: No Advance Directives: No Advance Directives Information Provided: Yes service: No Current occupational status: employed Current occupational exposures/hazards: No Cognitive needs: No Hearing needs: No Vision needs: No Meds Allergies Allergy/AdvReac Type Severity Reaction Status Date / Time No Known Allergies Allergy Verified 01/06/22 16:48 Exam Airway Mallampati Class: III TM Dist: >3cm Neck ROM: Full Heart: rr Lungs: cta Assessment and Plan Assessment Anesthesia Assessment: Anesthesia Plan Discussed Final Anesthetic Review NPO: Yes ASA Class: III Final Preanesthetic Review: No Changes in Pt Med Stat, Meds/Allgs Chart Reviewed, Consent Obtained/Reviewed and Anes Risks/Benef Reviewed Patient Risk: Low Procedure Risk: Low Anesthetic Plan Anesthetic Plan: MAC: Disposition: Standard PACU
--- NOTE | 2022-06-02 08:50 | MHC.SHP ---
Pre-Procedural Eval Section A Date of Service: 06/02/22 Section B Chief Complaint: Encounter for screening for malignant neoplasm of Relevant Family History (Specify if Yes): No Relevant Social History: None Present Medications: see Short Stay Collaborative assessment Medical History: Significant History (Acalculous cholecystitis Chronic cholecystitis due to cholelithiasis with choledocholithiasis Essential hypertension Gallstones Obese HALI on CPAP Smoker Upper abdominal pain) History of Previous Operations: Relevant previous surgery/procedure and date(s) (History of back surgery History of surgery Hx laparoscopic cholecystectomy (03/18/20)) Allergies: Allergies Allergy/AdvReac Type Severity Reaction Status Date / Time No Known Allergies Allergy Verified 01/06/22 16:48 Review of Systems Sugical H&P ROS: Negative: Constitution, Cardiovascular, Respiratory, Neurological, Psychiatric, Hem-Onc, Allergic/Immunologic, Gastrointestinal, Genitourinary, Musculoskeletal, Integumentary, Endocrine and Eyes/Ears/Nose/Throat Exam Surgical H&P Exam: Normal: HEENT, Normal: Heart, Normal: Lungs, Normal: Extremities, Normal: Abdomen, Normal: Skin and Normal: Neurological Plan Diagnosis/Plan: Unchanged I have reviewed the history and physical and performed a pertinent physical examination on my patient. No changes have occurred unless specified. Time Spent With Patient Time: Total time managing care of this patient today ____ minutes.
[2022-06-02 08:51] VITALS: BP 143/83; PULSE 96; RESP 18; TEMP 36.6; O2SAT 96
[2022-06-02] MEDS: Lactated Ringers 1,000 ML 100 ML IVCONT (08:53)
[2022-06-02 09:00] LABS: Glucose, Whole Blood 204 mg/dL (60-115)
--- NOTE | 2022-06-02 09:38 | W.PM.OPN ---
Operative Note Operative Note Date of Service: 06/02/22 Narrative: Operative Information Procedure Description: Colonoscopy Indication: screening Anesthesia: MAC COLONOSCOPY Instrument: Olympus variable stiffness pediatric scope 190L Colonoscopy Monitoring: Vital signs and clinical assessment, continuous EKG monitoring, Pulse oximetry, Carbon Dioxide monitoring and blood pressure monitoring were done throughout the procedure. Colon withdrawal time was 8 minutes. Procedure: The patient was placed in the left lateral decubitis position and pre-procedure medications were administered. After a digital rectal examination of the ano-rectum, the video colonoscope was inserted into the rectum and advanced through the colon to the cecum/TI. The colonoscope was slowly withdrawn in a retrograde panoramic fashion and the colon mucosa was carefully examined including a retroflexed view of the rectum. Findings and interventions are described below. Procedure Difficulty: moderate, pressure applied to enter cecum on left side Findings: Terminal Ileum-normal Cecum:normal Ascending Colon: normal Transverse Colon -normal Descending Colon:normal Sigmoid Colon: normal Rectum: Retroflexion with moderate sized, slightly inlammed internal hemorrhoids, grade I Anorectum - normal Colon preparation: Franklin Bowel Preparation Scale Right colon; 1-2 Transverse colon: 2 Left colon; 1-2 (0 = Unprepared colon segment with mucosa not seen due to solid stool that cannot be cleared. 1 = Portion of mucosa of the colon segment seen, but other areas of the colon segment not well seen due to staining, residual stool and/or opaque liquid. 2 = Minor amount of residual staining, small fragments of stool and/or opaque liquid, but mucosa of colon segment seen well. 3 = Entire mucosa of colon segment seen well with no residual staining, small fragments of stool or opaque liquid) Impression and Post Procedure Diagnosis: internal hemorrhoids Plan: High fiber diet leaflet Avoid straining at stool, epsom salts and sitz bath, anusol supps or cream--if ongoing issues with hemorrhoids refer surgery Repeat Colonoscopy in 1-2 years due to fair prep in some areas or earlier if clinically indicated Above findings were reviewed with the patient and relevant handouts were provided if indicated.
[2022-06-02 09:46] VITALS: BP 131/78; PULSE 86; RESP 16; TEMP 36.2; O2SAT 96
[2022-06-02 10:01] VITALS: BP 141/97; PULSE 84; RESP 16; O2SAT 96
[2022-06-02 10:15] VITALS: BP 142/85; PULSE 84; RESP 16; TEMP 36.2; O2SAT 99
== END 2022-06-02 10:51 | disposition home or self-care (01) ==
PROVIDERS: PCP Internal Medicine; Visit Provider Internal Medicine Gastroenterology
PROC: 0DJD8ZZ Inspection of Lower Intestinal Tract, Via Natural or Artificial Opening Endoscopic (ICD-10-PCS; CPT 45378; principal; 2022-06-02 09:00)
DX: Z12.11 Encounter for screening for malignant neoplasm of colon (principal); K64.0 First degree hemorrhoids; K91.5 Postcholecystectomy syndrome; R14.0 Abdominal distension (gaseous); K58.9 Irritable bowel syndrome, unspecified; I10 Essential (primary) hypertension; E66.9 Obesity, unspecified; Z68.39 Body mass index [BMI] 39.0-39.9, adult; G47.33 Obstructive sleep apnea (adult) (pediatric); B00.9 Herpesviral infection, unspecified; E11.9 Type 2 diabetes mellitus without complications; Z99.89 Dependence on other enabling machines and devices; F17.299 Nicotine dependence, other tobacco product, with unspecified nicotine-induced disorders; Z90.49 Acquired absence of other specified parts of digestive tract
CPT/HCPCS: 45378; 82947

== ENCOUNTER → 2022-06-16 15:29 | Outpatient (BNVA) | payer OTHER, SELFPAY | PROVIDERS: PCP Internal Medicine; Referring Provider Internal Medicine; Visit Provider Nurse Practitioner | DX: Z13.89 Encounter for screening for other disorder (principal) ==

== ENCOUNTER 2022-11-05 16:25 | Outpatient (AMB) | payer OTHER, SELFPAY ==
--- NOTE | 2022-11-05 16:27 | A.OFFPC_ITS ---
Vital Signs 11/05/22 16:28 11/05/22 16:53 Height 6 ft Weight 317 lb BMI 43.0 BP 142/98 H 140/95 H Blood Pressure Location Lt brachial Lt brachial Position Sitting Sitting Intake Visit Reasons: dm Intake Note: Patient here for a follow up DM Central Station Operator Required: No Accompanied by: Self / Same As Patient Allergies No Known Allergies Allergy (Verified 11/05/22 16:40) Medication List - Last Reconciled 11/05/22 by Linda Boyer MD atorvastatin 20 mg PO BEDTIME 90 days blood pressure monitor As directed clotrimazole 1% 1 appl topical TID 4 weeks insulin glargine (Lantus Solostar U-100 Insulin) 45 units (0.45 mL) subcut QPM 30 days lisinopril 30 mg PO DAILY 30 days nystatin 1 appl topical BID 14 days valacyclovir 1,000 mg PO BID 10 days Tobacco use date assessed: 07/06/22 Dental Screening Dental Screen Date: 11/05/22 Did you have a dental visit in the last 12 months?: No Did you have a dental problem in the last 6 months where you did not have access to dental care?: No Was dental information given to patient?: Patient has dentist HPI HPI Comments History of Present Illness Details This is a 41-year-old male with hypertension, diabetes mellitus type 2, hyperlipidemia and morbid obesity that comes today for follow-up on his conditions. Blood pressure borderline normal to elevated. Blood pressure will be recheck in 3 weeks by nurse navigator. Lipid panel will be order in his LDL goal should be less than 70. A1c elevated and he admits not been compliant with insulin. I will start him on Trulicity. He is morbidly obese with a BMI of 43 and was advised to diet and exercise to reach BMI goal less than 30. Declines weight loss surgery. No chest pain or shortness of breath. [facility] Medical History (Updated 11/05/22 @ 16:48 by Linda Boyer MD) Acalculous cholecystitis Chronic cholecystitis due to cholelithiasis with choledocholithiasis Diabetes mellitus Dyslipidemia Essential hypertension Essential hypertension Gallstones HSV-2 (herpes simplex virus 2) infection IBS (irritable bowel syndrome) Increased BMI Obese HALI on CPAP Severe obesity with body mass index (BMI) of 35.0 to 39.9 with comorbidity Smoker Upper abdominal pain Surgical History H/O colonoscopy History of back surgery History of surgery Hx laparoscopic cholecystectomy (03/18/20) Family History Father Diabetes Mother Diabetes HTN (hypertension) Sister Diabetes Other Heart problem Social History Housing: House Are you a primary childcare administrator to a significant other at home: No Do you presently have visiting nurse or other home services: No Alcohol intake: current Alcohol intake frequency: does not drink Alcohol type: beer Patient Tobacco Use Status: Former Tobacco user Tobacco use type: Cigarette Years Smoked: 25 e-Cigarette/Vaping Use: Currently Using Second Hand Smoke Exposure: No service: No Current occupational status: employed Current occupational exposures/hazards: No Cognitive needs: No Hearing needs: No Vision needs: No Questionnaire Thrive Questionnaire Date Thrive assessed: 07/06/22 TODD-7 AMB Questionnaire TODD-7 Date TODD - 7 assessed: 07/06/22 Source: Developed by Drs. Wilson Cho, Leana Montoya, Logan Akhtar and colleagues, with an educational daisy from [employer] Review of Systems Const All systems reviewed & are unremarkable except as noted in HPI and below Eyes Reports no additional complaints, Denies change in vision and Denies other visual disturbances Card Denies chest pain at rest, Denies chest pain with activity, Denies edema, Denies irregular heart rhythm, Denies claudication, Denies dyspnea, Denies dyspnea on exertion, Denies orthopnea, Denies paroxysmal nocturnal dyspnea and Denies slow heart rate Resp Denies cough, Denies dyspnea and Denies dyspnea on exertion GI Denies abdominal pain, Denies change in bowel habits, Denies excessive flatus, Denies nausea and Denies vomiting Denies urinary hesitancy, Denies urinary incontinence and Denies urinary urgency Musc Denies abnormal gait, Denies atrophy, Denies deformity and Denies limited range of motion Skin/Breast Denies bleeding lesions, Denies changing lesions and Denies rash Neuro Denies abnormal gait and Denies lack of coordination Physical exam (Primary Care) Vital Signs: Last Vital Signs BP 142/98 H 11/05/22 16:28 BMI result Body Mass Index 43.0 Tobacco/Smoking Status: Tobacco use Status Tobacco use date assessed 07/06/22 11/05/22 16:30 Patient Tobacco Use Status Former Tobacco user 11/05/22 16:30 Tobacco use type Cigarette 11/05/22 16:30 e-Cigarette/Vaping Use Currently Using 11/05/22 16:30 Thrive Assessment: Date of Thrive Assessment Date Thrive assessed 07/06/22 11/05/22 16:30 Eyes General: appearance normal, both eyes and all related structures Eyelids: Yes eyelids normal Conjunctivae: conjunctivae normal Neck Neck: Yes normal visual inspection and Yes supple Resp Effort & Inspection: normal respiratory effort Auscultation: clear to auscultation bilaterally Cardio Jugular venous distension: no JVD Rate: regular rate Rhythm: regular rhythm Heart sounds: S1 normal heart sound present and S2 normal heart sound present Extrem General: Yes full ROM Results AMB Hemoglobin A1c AMB Hemoglobin A1c 12.4 % Last Edit by MANJIT Appiah on 11/05/22 16: 47 Assessment and Plan Assessment & Plan (1) Diabetes mellitus: Comment: IDDM Code(s): E11.9 - Type 2 diabetes mellitus without complications Qualifiers: Diabetes mellitus type: type 2 Diabetes mellitus superintendent [employer] insulin use: with assisted use Diabetes mellitus complication status: with hyperglycemia Qualified Code(s): E11.65 - Type 2 diabetes mellitus with hyperglycemia; 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 A1c goal is equal or less than 7%. Start Trulicity. (2) Essential hypertension: Code(s): I10 - Essential (primary) hypertension Plan: Continue lisinopril. Blood pressure goal is equal or less than 130/80. Recheck blood pressure with nurse navigator in 3 weeks. (3) Morbid obesity with body mass index (BMI) of 40.0 to 44.9 in adult: Code(s): E66.01 - Morbid (severe) obesity due to excess calories; Z68.41 - Body mass index [BMI] 40.0-44.9, adult Plan: Start diet and exercise. BMI goal is less than 30. Declines weight loss surgery. (4) Hyperlipidemia LDL goal <70: Code(s): E78.5 - Hyperlipidemia, unspecified Plan: Continue statins. LDL goal is less than 70. Orders: Orders Lipid Panel Today E78.5 - Hyperlipidemia, unspecified Microalbumin, Random (w Creat) Today E11.9 - Type 2 diabetes mellitus without complications Vitamin D 25-OH Total Today E55.9 - Vitamin D deficiency, unspecified Comprehensive Met. Panel Today E11.65 - Type 2 diabetes mellitus with hyperglyc emia, Z79.4 - senior living (current) use of insulin AMB Hemoglobin A1c Today E11.9 - Type 2 diabetes mellitus without complications Medications: New dulaglutide (Trulicity) 0.75 mg (0.5 mL) subcut QWEEK 90 days 6.5 mL 3RF Refilled insulin glargine (Lantus Solostar U-100 Insulin) 45 units (0.45 mL) subcut QPM 30 days 13.5 mL 6RF E11.9 - Type 2 diabetes mellitus without complications Coding Level of Care Code Est Pt Level 4 (53006) Diagnoses Diabetes mellitus E11.65; Z79.4 Diabetes mellitus type: type 2 Diabetes mellitus assisted insulin use: with superintendent 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
[2022-11-05 16:28] VITALS: BP 142/98; BMI 43.0
[2022-11-05 16:53] VITALS: BP 140/95
== END 2022-11-05 16:55 | disposition home or self-care (01) ==
PROVIDERS: PCP Internal Medicine; Visit Provider Internal Medicine
DX: E11.65 Type 2 diabetes mellitus with hyperglycemia (principal); Z79.4 Long term (current) use of insulin; E66.01 Morbid (severe) obesity due to excess calories; Z68.41 Body mass index [BMI] 40.0-44.9, adult; I10 Essential (primary) hypertension; E78.5 Hyperlipidemia, unspecified
CPT/HCPCS: 83036; 99214

== ENCOUNTER 2023-04-12 12:38 | Emergency (ER) | payer OTHER, SELFPAY ==
--- NOTE | ~2023-04-12 | US_ITS ---
EXAMINATION: US CHEST CLINICAL INFORMATION: Upper left back lump adjacent scapula. COMPARISON: None available. TECHNIQUE: Limited ultrasound imaging to the back is performed. FINDINGS: Complex cystic round structure seen measuring 5.6 x 3.2 x 6.6 cm in the left upper back region where patient complains of a lump. The findings may represent a large seroma from trauma. Differential diagnosis includes hematoma, less likely abscess. There is no increased vascularity. US/US chest IMPRESSION: Large left complex cystic round structure left upper back where patient complains of lump. It most likely represents a seroma from trauma. Correlate clinically. Differential diagnoses includes fresh hematoma, less likely abscess.. There is no history of trauma ultrasound-guided diagnostic needle aspiration can be performed.
[2023-04-12 12:48] VITALS: BP 173/107; PULSE 116; RESP 17; TEMP 36.8; O2SAT 95; BMI 43.3
--- NOTE | 2023-04-12 12:54 | ED_ITS ---
HPI - General Adult General Chief complaint: Skin/Abscess/Foreign Body Stated complaint: lump on back of l shoulder Time Seen by Provider: 04/12/23 13:11 Source: patient and RN notes reviewed Mode of arrival: ambulatory Limitations: no limitations History of Present Illness HPI narrative: This is a 42-year-old male, with a history of diabetes noncompliant on medication, presented to the emergency department with complaints of lump on his back for the last several months. Denies trauma or injury. No fevers, chills, nausea, vomiting or diarrhea. He states that the lump is painful only when he moves his arms. He also states that his health insurance is not covering his diabetic medications and he has not taken it in several weeks. No chest pain, shortness of breath, blurred vision, abdominal pain, nausea, vomiting or diarrhea. No other complaints or concerns at this time. MD complaint: lump on back Onset (ago): month(s) Location: back Radiation: non-radiation Relieving factors: none Exacerbating factors: none Associated symptoms: denies other symptoms Treatments prior to arrival: none Related Data Previous Rx's Medication Instructions Recorded atorvastatin 20 mg tablet 20 mg PO BEDTIME 90 days #90 tabs 12/03/20 blood pressure monitor #1 ea 04/17/21 clotrimazole 1 % topical ointment 1 appl topical TID Balanitis 4 04/27/22 weeks #56.7 grams valacyclovir 1 gram tablet 1,000 mg PO BID 10 days #20 tabs 05/04/22 dulaglutide 0.75 mg/0.5 mL 0.75 mg (0.5 mL) subcut QWEEK 90 11/05/22 subcutaneous pen injector days #6.5 mL (Trulicity) insulin glargine 100 unit/mL (3 45 unit (0.45 mL) subcut QPM 30 11/05/22 mL) subcutaneous pen (Lantus days #13.5 mL Solostar U-100 Insulin) empagliflozin 10 mg tablet 10 mg PO DAILY 90 days #90 tabs 11/07/22 (Jardiance) lisinopril 30 mg tablet 30 mg PO DAILY 30 days #30 tabs 11/27/22 nystatin 100,000 unit/gram topical 1 appl topical BID 14 days #30 03/09/23 cream grams glipizide 5 mg tablet 5 mg PO DAILY #30 tabs 04/12/23 Allergies Allergy/AdvReac Type Severity Reaction Status Date / Time No Known Allergies Allergy Verified 11/05/22 16:40 Review of Systems 2 Review of Systems: Yes all other systems are reviewed and are negative Constitutional: Constitutional: Reports as per HPI [facility] Past Medical History Attestation statement: The following information was validated with the patient. Medical History HSV-2 (herpes simplex virus 2) infection Severe obesity with body mass index (BMI) of 35.0 to 39.9 with comorbidity Essential hypertension Obese Essential hypertension Dyslipidemia Increased BMI Smoker IBS (irritable bowel syndrome) Diabetes mellitus HALI on CPAP Chronic cholecystitis due to cholelithiasis with choledocholithiasis Acalculous cholecystitis Upper abdominal pain Gallstones Surgical History H/O colonoscopy Hx laparoscopic cholecystectomy (03/18/20) History of back surgery History of surgery Family History Family History Father Diabetes Mother Diabetes HTN (hypertension) Sister Diabetes Other Heart problem Social History Social History Housing: House Are you a primary child caregiver to a significant other at home: No Do you presently have visiting nurse or other home services: No Alcohol intake: current Alcohol intake frequency: does not drink Alcohol type: beer Comment: medicated earlier, see MAR Patient Tobacco Use Status: Former Tobacco user Tobacco use type: Cigarette Years Smoked: 25 e-Cigarette/Vaping Use: Currently Using Second Hand Smoke Exposure: No service: No Current occupational status: employed Current occupational exposures/hazards: No Cognitive needs: No Hearing needs: No Vision needs: No Physical Exam ED Vital Signs: Vital Signs - 24 hr 04/12/23 12:48 04/12/23 16:00 Temperature 98.3 F 98.3 F Pulse Rate 116 H 93 Respiratory Rate 17 16 Blood Pressure 173/107 H 119/80 Pulse Oximetry 95 99 Oxygen Delivery Method Nasal Cannula Room Air BMI result Body Mass Index 43.3 Const General: cooperative, comfortable and no acute distress Orientation/consciousness: patient oriented x3 Limitations: no limitations HENMT Head: Yes normal to inspection, Yes normocephalic and Yes atraumatic Ears: hearing grossly normal bilaterally General nose exam: Normal external nose present Face and sinus: Yes normal facial exam Mouth: Normal oral and palatal mucosa present, oropharynx normal and moist mucous membranes Throat: Yes posterior oropharynx normal Eyes General: appearance normal, both eyes and all related structures Eyelids: Yes eyelids normal Conjunctivae: conjunctivae normal Sclerae: sclerae normal Pupils: Equal, round and reactive pupils present EOM: EOMs intact bilaterally Neck Neck: Yes normal visual inspection, Yes full ROM and Yes no lymphadenopathy Lymphatic: no lymphadenopathy noted Chest Chest palpation & inspection: normal inspection of the chest Resp Effort & Inspection: normal respiratory effort and able to speak in complete sentences Auscultation: clear to auscultation bilaterally, no crackles, no rales, no rhonchi and no wheezes Cardio Rate: regular rate Rhythm: regular rhythm Heart sounds: S1 normal heart sound present and S2 normal heart sound present GI Inspection: Yes normal to inspection Skin Other: Large, round 9 cm indurated flesh colored mass noted to the left upper back, no fluctuance, nontender. No drainge, surrounding erythema or warmth. Nontender General skin exam: no rashes or lesions noted Trauma: no lacerations or abrasions Wounds: no wounds Neuro General: patient oriented x3 and moves all extremities Cranial nerves: Yes Equal, round and reactive pupils present Extrem General: Yes normal to inspection Right upper extremity: normal to inspection Left upper extremity: normal to inspection Right lower extremity: normal to inspection Left lower extremity: normal to inspection Course Course Course Narrative: RME:?42 yo male w/ hx of T2DM here for eval of enlarging mass on upper left back x3 months. pain w/ moving left arm. the mass is itchy. Denies fever, chills, N/V, rash, mass elsewhere on body. PE: 9cm fixed mass to left upper back over left scapula. warm and erythematous. non ttp. no fluctuance or pointing. labs, US ordered in triage. Full HPI, ROS and PE to be performed by the primary ED provider. Medications Administered Discontinued Medications Generic Name Dose Route Start Last Admin Trade Name Freq PRN Reason Stop Dose Admin Glipizide 5 mg 04/12/23 15:41 04/12/23 16:26 Glipizide 5 Mg Tablet PO 04/12/23 15:42 5 mg ONCE ONE Administration Sodium Chloride 1,000 mls @ 999 mls/hr 04/12/23 13:29 04/12/23 14:41 Ns IV 04/12/23 14:29 Infused .Q1H1M ONE Infusion Medical Decision Making Medical Decision Making [facility] Narrative: 42 y/o M, with a hx of diabetes, noncompliant on medications due to cost, presenting to the ER with complaints of left upper back mass x months. On arrival blood pressure elevated at 173/107, all other VSS. Improved to 119/80. Labs were performed, revealing a critical glucose of 457. Pt received 1L IV fluids improved to 372. Discussed with Dr. Harding who recommends starting pt on glipizide due to elevated BS and difficulty filling prescriptions. I discussed with pt who is in agreement to start this medication. Given precautions regarding hypoglycemia. Pt understands. US of back revealing complex cyst - given surgical referral as this requires their expertise. Pt is afebrile, in no acute distress, no leukocytosis, or evidence of infection at this time. Given return precautions. Stable for D/C. Differential Diagnosis Differential Diagnoses: The differential diagnosis associated with the presentation includes cyst, abscess, lipoma, cellulitis Admission/Observation Consideration of admission/observation: Escalation of care including admission/observation considered Lab Data [facility] Lab Attestation statement: I reviewed the patient's lab results. No leukocytosis, Stable H&H, hyperglycemia at 457 improved to 372 04/12/23 13:03 04/12/23 13:03 Labs: Lab Results 04/12/23 04/12/23 04/12/23 Range/Units 13:03 15:04 15:07 WBC 9.4 (4.8-10.8) X10*3/uL RBC 5.18 (4.60-5.80) X10*6/uL Hgb 15.0 (14.0-18.0) g/dl Hct 43.6 (42.0-52.0) % MCV 84.2 (80.0-98.0) fL MCH 29.0 (27.0-33.0) pg MCHC 34.4 (31.0-36.0) g/dl RDW 12.5 (11.0-16.0) % Plt Count 212 (160-400) X10*3/uL MPV 9.5 (9.4-12.4) fL Immature Gran % (Auto) 0.2 (0.0-0.4) % Neut % (Auto) 73.2 H (45-73) % Lymph % (Auto) 18.2 L (20-40) % [place] % (Auto) 7.0 (2-11) % Eos % (Auto) 1.2 (0-4) % Baso % (Auto) 0.2 (0-2) % Lymph # (Auto) 1.7 (1.2-4.9) X10*3/uL [place] # (Auto) 0.7 (0.1-1.2) X10*3/uL Eos # (Auto) 0.1 (0.0-0.4) X10*3/uL Baso # (Auto) 0.0 (0.0-0.2) X10*3/uL Abs Immat Gran (auto) 0.02 (0.00-0.03) X10*3/uL Absolute Neuts (auto) 6.9 (2.0-8.3) x10*3/uL Absolute Nucleated RBC 0.000 (0.0-0.012) X10*3/uL Nucleated RBC % (auto) 0.0 (0.0-0.2) /100WBC Sodium 135 (135-145) mmol/L Potassium 4.1 (3.3-5.1) mmol/L Chloride 99 (96-108) mmol/L Carbon Dioxide 24 (22-29) mmol/L Anion Gap 16 (12-20) BUN 14 (9-16) mg/dL Creatinine 0.94 (0.5-1.4) mg/dL Estim Creat Clear Calc 148.1 Estimated GFR > 60 POC Glucose 372 H* (60-115) mg/dL Random Glucose 457 H* (60-115) mg/dL Calcium 9.5 D (8.4-10.2) mg/dL Urine Color Yellow Urine Appearance Clear Urine pH 5.5 (5.0-9.0) Ur Specific [place] >= 1.030 H (1.005-1.025) Urine Protein Negative (Neg-Trace) mg/dL Urine Glucose (UA) >=1000 H (Negative) mg/dL Urine Ketones 40 (Negative) mg/dL Urine Blood Negative (Negative) Urine Nitrite Negative (Negative) Ur Leukocyte Esterase Negative (Negative) Urine RBC 0-2 (0-2) /HPF Urine WBC 11-20 H (0-5) /HPF Ur Squamous Epith Cells 0-2 (0-2) /HPF Urine Bacteria None Seen (None Seen) Hyaline Casts 0-2 (0-2) /LPF Radiology Impression Discussion of test interpretation with radiology: I have reviewed the radiologist's reading. Radiologist Impression: EXAMINATION: US CHEST CLINICAL INFORMATION: Upper left back lump adjacent scapula. COMPARISON: None available. TECHNIQUE: Limited ultrasound imaging to the back is performed. FINDINGS: Complex cystic round structure seen measuring 5.6 x 3.2 x 6.6 cm in the left upper back region where patient complains of a lump. The findings may represent a large seroma from trauma. Differential diagnosis includes hematoma, less likely abscess. There is no increased vascularity. US/US chest IMPRESSION: Large left complex cystic round structure left upper back where patient complains of lump. It most likely represents a seroma from trauma. Correlate clinically. Differential diagnoses includes fresh hematoma, less likely abscess.. There is no history of trauma ultrasound-guided diagnostic needle aspiration can be performed. Dictated By: Osbaldo Barclay MD Prescription Management I considered prescription management with: Antibiotic Chronic Conditions Patient?s care impacted by: Diabetes Social Determinants Patient?s care significantly limited by Social Determinants of Health including: Low income and Other Social Determinant of Health Critical Care Time Critical Care Time Critical Care Time: Yes Total Critical Care Time: 35 Attestation: I have personally provided critical care time exclusive of time spent on separately billable procedures. Time includes review of lab data, radiology results, discussion with consultants, and monitoring for potential decompensation. Intervention performed as documented. Discharge Plan Discharge Clinical Impression: Mass on back, Diabetes mellitus Patient Disposition: Home, Self-Care Instructions: Cyst (ED) Additional Instructions: Your seen in the emergency department due to a large mass on your back. This was ultrasound in revealed a large left complex cyst, this requires surgical intervention, please call general surgeon tomorrow to schedule an appointment. Your blood glucose level was very elevated at 457, this improved after receiving IV fluids to 372. Please monitor your sugars regularly. I am giving you a different diabetic medication called glipizide, you were given your 1st dose in the department today. Please go to [facility] as this will be 4 dollars. Also use good Rx card. You need to follow-up with your primary care physician regarding her diabetes, call tomorrow to make an appointment. If any new or worsening symptoms occur including but not limited to chest pain, shortness of breath, dizziness, lightheadedness please return for re-evaluation. Prescriptions: New glipizide 5 mg tablet 5 mg PO DAILY Qty: 30 0RF Rx Instructions: Take 1st thing before meal No Action clotrimazole 1 % ointment 1 appl topical TID 28 Days Qty: 56.7 1RF valacyclovir 1 gram tablet 1,000 mg PO BID 10 Days Qty: 20 2RF Jardiance 10 mg tablet 10 mg PO DAILY 90 Days Qty: 90 1RF lisinopril 30 mg tablet 30 mg PO DAILY 30 Days Qty: 30 4RF nystatin 100,000 unit/gram cream 1 appl topical BID 14 Days Qty: 30 0RF Rx Instructions: apply to tip of penis twice a day atorvastatin 20 mg tablet 20 mg PO BEDTIME 90 Days Qty: 90 1RF (DME) blood pressure monitor Kit See Rx Instructions .Route Qty: 1 0RF Rx Instructions: As directed insulin glargine [Lantus Solostar U-100 Insulin] 100 unit/mL (3 mL) insulin pen 45 unit subcut QPM 30 Days Qty: 13.5 6RF Trulicity 0.75 mg/0.5 mL pen injector 0.75 mg subcut QWEEK 90 Days Qty: 6.5 3RF Referrals: [facility] General Surgeons [Provider Group] Interventions: ED Discharge Assessment Last Done: 04/12/23 16:27 Discharge Date/Time: 04/12/23 16:33
[2023-04-12 13:07] LABS: MANUAL DIFF FLAG NO
[2023-04-12 13:09] LABS: Basophils Percent Auto 0.2 % (0-2); Eosinophils Absolute Auto 0.1 X10*3/uL (0.0-0.4); Eosinophils Percent Auto 1.2 % (0-4); Hematocrit 43.6 % (42.0-52.0); Imm Gran Abs Auto 0.02 X10*3/uL (0.00-0.03); Imm Gran Pct Auto 0.2 % (0.0-0.4); Lymphocytes Absolute Auto 1.7 X10*3/uL (1.2-4.9); Lymphocytes Percent Auto 18.2 % (20-40); Mean Corpuscular HGB Conc 34.4 g/dl (31.0-36.0); Mean Corpuscular Volume 84.2 fL (80.0-98.0); Mean Platelet Volume 9.5 fL (9.4-12.4); Monocytes Absolute Auto 0.7 X10*3/uL (0.1-1.2); Neutrophils Absolute Auto 6.9 x10*3/uL (2.0-8.3); Neutrophils Percent Auto 73.2 % (45-73); Platelet Count 212 X10*3/uL (160-400); Red Blood Count 5.18 X10*6/uL (4.60-5.80); Red Cell Distribution Width 12.5 % (11.0-16.0); White Blood Count 9.4 X10*3/uL (4.8-10.8)
[2023-04-12 13:29] LABS: Anion Gap 16 (12-20); Blood Urea Nitrogen 14 mg/dL (9-16); Calcium 9.5 mg/dL (8.4-10.2); Carbon Dioxide 24 mmol/L (22-29); Chloride 99 mmol/L (96-108); Creatinine Clr Calc Pharmacy 148.1; Estimated Glomerular Filt Rate > 60; Glucose Random 457 mg/dL (60-115); Potassium 4.1 mmol/L (3.3-5.1); Sodium 135 mmol/L (135-145)
--- NOTE | 2023-04-12 13:32 | PC.NURSE ---
this nurse spoke with patient about elevated bs, pt states he is having an issue with insurance and his insulin isnt covered, pt states he hasnt been checking his BS or taking insulin for approx 2 months. will start iv per order and give NS per order, pt states he knew his blood sugar was elevated because he gets very thirsty.
[2023-04-12] MEDS: 0.9 % Sodium Chloride 1,000 ML 999 ML IV (13:40)
[2023-04-12 15:08] LABS: Glucose, Whole Blood 372 mg/dL (60-115)
[2023-04-12 15:17] LABS: Appearance Urine Clear; Color Urine Yellow; Glucose Urine UA >=1000 mg/dL (Negative); Leukocyte Esterase Urine Negative (Negative); Nitrite Urine Negative (Negative); PH 5.5 (5.0-9.0); Specific Gravity - Urine >= 1.030 (1.005-1.025); UMIC TRIGGER UACC YES; Urine Blood Negative (Negative); Urine Ketones 40 mg/dL (Negative); Urine Protein Negative (Neg-Trace)
[2023-04-12 16:00] VITALS: BP 119/80; PULSE 93; RESP 16; TEMP 36.8; O2SAT 99
--- NOTE | 2023-04-12 16:12 | PC.NURSE ---
pharmacy called for missing med
[2023-04-12] MEDS: glipiZIDE 5 MG TABLET PO (16:26)
[2023-04-12 18:23] LABS: Bacteria Urine None Seen (None Seen); Hyaline Casts Urine 0-2 /LPF (0-2); RBC Urine 0-2 /HPF (0-2); Squamous Epithelial Cell Urine 0-2 /HPF (0-2); UACC Culture Trigger YES
== END 2023-04-12 16:33 | disposition home or self-care (01) ==
PROVIDERS: Physician Assistant Medical; Emergency Provider Emergency Medicine; PCP Internal Medicine
DX: R22.1 Localized swelling, mass and lump, neck (principal); E11.9 Type 2 diabetes mellitus without complications; N39.0 Urinary tract infection, site not specified; B95.1 Streptococcus, group B, as the cause of diseases classified elsewhere; Z79.4 Long term (current) use of insulin; Z79.899 Other long term (current) drug therapy
CPT/HCPCS: 36415; 76604; 80048; 81001; 82947; 85025; 87086; 87147; 96360; 99284

== ENCOUNTER 2023-04-28 12:55 | Outpatient (AMB) | payer OTHER, SELFPAY ==
--- NOTE | 2023-04-28 12:56 | A.OFFVIS_ITS ---
Intake Vital Signs 04/28/23 13:00 Height 6 ft Weight 310 lb BMI 42.0 BP 182/106 H Blood Pressure Location Rt radial Pulse 112 H Intake Visit Reasons: Mass on back Intake Note: Patient referred by PCP Dr. Deacon Boyer for mass on back. Present for 3m. Patient c/o: itch, pain spreading down Lt arm. Plumbing Drafter Required: No Accompanied by: Self / Same As Patient Allergies No Known Allergies Allergy (Verified 04/28/23 13:01) Medication List - Last Reconciled 04/28/23 by Keven Rasheed MD atorvastatin 20 mg PO BEDTIME 90 days blood pressure monitor As directed clotrimazole 1% 1 appl topical TID 4 weeks dulaglutide (Trulicity) 0.75 mg (0.5 mL) subcut QWEEK 90 days empagliflozin (Jardiance) 10 mg PO DAILY 90 days glipizide 5 mg PO DAILY insulin glargine (Lantus Solostar U-100 Insulin) 45 units (0.45 mL) subcut QPM 30 days lisinopril 30 mg PO DAILY 30 days nystatin 1 appl topical BID 14 days valacyclovir 1,000 mg PO BID 10 days HPI HPI Comments History of Present Illness Details Patient presents three-week history of progressively worsening left upper back pain, swelling in the area of a sebaceous cyst. He has never had such symptoms before. Patient was seen in the ER when the weekend and was given antibiotics for UTI. Presents here for further follow-up. Chart was reviewed patient evaluate ON LICENSE OF [facility] Medical History HSV-2 (herpes simplex virus 2) infection Severe obesity with body mass index (BMI) of 35.0 to 39.9 with comorbidity Essential hypertension Obese Essential hypertension Dyslipidemia Increased BMI Smoker IBS (irritable bowel syndrome) Diabetes mellitus HALI on CPAP Chronic cholecystitis due to cholelithiasis with choledocholithiasis Acalculous cholecystitis Upper abdominal pain Gallstones Surgical History H/O colonoscopy Hx laparoscopic cholecystectomy (03/18/20) History of back surgery History of surgery Family History Father Diabetes Mother Diabetes HTN (hypertension) Sister Diabetes Other Heart problem Social History Housing: House Are you a primary memory care program resident to a significant other at home: No Do you presently have visiting nurse or other home services: No Alcohol intake: current Alcohol intake frequency: does not drink Alcohol type: beer Comment: medicated earlier, see MAR Patient Tobacco Use Status: Former Tobacco user Tobacco use type: Cigarette Years Smoked: 25 e-Cigarette/Vaping Use: Currently Using Second Hand Smoke Exposure: No service: No Current occupational status: employed Current occupational exposures/hazards: No Cognitive needs: No Hearing needs: No Vision needs: No Physical Exam Vital Signs: Last Vital Signs Pulse 112 H 04/28/23 13:00 BP 182/106 H 04/28/23 13:00 BMI result Body Mass Index 42.0 Back/Spine/Pelvis Other: Patient has approximately 6 x 5 cm left upper back fluctuant mass consistent with an infected sebaceous cyst. Under sterile technique this was aspirated and copious amounts of purulent material were retrieved. Patient will need a formal I&D of this. Office Procedures I&D Drain Details: Risks, benefits, alternatives of incision and drainage of massive left upper back infected sebaceous cyst abscess were reviewed with the patient and included but not limited to bleeding, infection, recurrence, numbness, pain, scarring the patient wished to proceed. Patient after appropriate positioning underwent 1% lidocaine and Betadine prep and a transverse incision was made over the mid abscess of the back were copious amounts of purulent material were retrieved. Wound was irrigated, secured hemostasis, and packed. Sterile dressing applied. Well tolerated. 62625-Dtzsgbqt of Skin Abscess, complex All charges added?: Procedure code (CPT) selection complete Assessment & Plan Assessment & Plan (1) Back abscess: Code(s): L02.212 - Cutaneous abscess of back [any part, except buttock] Plan: Patient will be given antibiotics, analgesics, VNA services through [facility] in [facility] office, and see me in approximate 1-1/2 weeks time or p.r.n.. All questions answered. Orders: Orders AMB Incision & Drainage Today L02.212 - Cutaneous abscess of back [any part, except buttock] Medications: New cephalexin 500 mg PO TID 30 caps 0RF hydrocodone-acetaminophen 5-325 mg Partial Fill upon patient request. 1 tab PO Q4-6H PRN 30 tabs 0RF pain Coding Level of Care Code New Pt Level 5 (81604) Diagnoses Back abscess L02.212 CPT Codes I&D Drain - Drain 2: 15037-Cpqkqtzh of Skin Abscess, complex ([id number])
[2023-04-28 13:00] VITALS: BP 182/106; PULSE 112; BMI 42.0
== END 2023-04-28 13:26 | disposition home or self-care (01) ==
PROVIDERS: PCP Internal Medicine; Referring Provider Internal Medicine; Visit Provider Surgery
DX: L02.212 Cutaneous abscess of back [any part, except buttock and flank] (principal)
CPT/HCPCS: 10060; 99204; 99214

== ENCOUNTER → 2023-04-28 12:55 | Outpatient (BNVA) | payer OTHER, SELFPAY | PROVIDERS: PCP Internal Medicine; Referring Provider Internal Medicine; Visit Provider Surgery | DX: L02.212 Cutaneous abscess of back [any part, except buttock and flank] (principal) | CPT/HCPCS: 10060 ==

== ENCOUNTER → 2023-04-29 14:51 | Outpatient (BNVA) | payer OTHER, SELFPAY | PROVIDERS: PCP Internal Medicine; Visit Provider Surgery ==

== ENCOUNTER → 2023-04-30 09:51 | Outpatient (BNVA) | payer OTHER, SELFPAY | PROVIDERS: PCP Internal Medicine; Visit Provider Surgery | DX: Z48.01 Encounter for change or removal of surgical wound dressing (principal) | CPT/HCPCS: 99211 ==

== ENCOUNTER 2023-05-04 15:01 | Outpatient (AMB) | payer OTHER, SELFPAY ==
[2023-05-04 15:12] VITALS: BP 156/102; PULSE 107; BMI 42.3
--- NOTE | 2023-05-04 15:12 | A.OFFVIS_ITS ---
Intake Vital Signs 05/04/23 15:12 Height 6 ft Weight 312 lb BMI 42.3 BP 156/102 H Blood Pressure Location Rt brachial Position Sitting Pulse 107 H Intake Visit Reasons: 1wk abscess on back Intake Note: Patient here for 1wk s/p I&D abscess on back. Finished Cephalexin course. Reports site healing well. Patient c/o: denies pain, oozing, itch. Restorative Coordinator Required: No Accompanied by: Self / Same As Patient Allergies No Known Allergies Allergy (Verified 05/04/23 15:13) HPI HPI Comments History of Present Illness Details Status post I&D massive left upper back abscess. Patient has had marked improvement of his symptoms. He has minimal incisional discomfort he has been undergoing local wound care. He is completing his antibiotic course. [facility] Medical History HSV-2 (herpes simplex virus 2) infection Severe obesity with body mass index (BMI) of 35.0 to 39.9 with comorbidity Essential hypertension Obese Essential hypertension Dyslipidemia Increased BMI Smoker IBS (irritable bowel syndrome) Diabetes mellitus HALI on CPAP Chronic cholecystitis due to cholelithiasis with choledocholithiasis Acalculous cholecystitis Upper abdominal pain Gallstones Surgical History H/O colonoscopy Hx laparoscopic cholecystectomy (03/18/20) History of back surgery History of surgery Family History Father Diabetes Mother Diabetes HTN (hypertension) Sister Diabetes Other Heart problem Social History Housing: House Are you a primary critical care educator to a significant other at home: No Do you presently have visiting nurse or other home services: No Alcohol intake: current Alcohol intake frequency: does not drink Alcohol type: beer Comment: medicated earlier, see MAR Patient Tobacco Use Status: Former Tobacco user Tobacco use type: Cigarette Years Smoked: 25 e-Cigarette/Vaping Use: Currently Using Second Hand Smoke Exposure: No service: No Current occupational status: employed Current occupational exposures/hazards: No Cognitive needs: No Hearing needs: No Vision needs: No Physical Exam Vital Signs: Last Vital Signs Pulse 107 H 05/04/23 15:12 BP 156/102 H 05/04/23 15:12 BMI result Body Mass Index 42.3 Back/Spine/Pelvis Other: Upper back wound markedly decreased in erythema and edema. Infectious process resolving. Wound repacked and dressing applied. Well tolerated. Assessment & Plan Assessment & Plan (1) Back abscess: Code(s): L02.212 - Cutaneous abscess of back [any part, except buttock] (2) Status post incision and drainage: Code(s): Z98.890 - Other specified postprocedural states Plan Patient is continue through office local wound care and will follow-up with that as directed and will see me also as directed or p.r.n.. Incidental finding of umbilical hernia which will be addressed once the patient's acute back issue has resolved. Coding Level of Care Code Est Pt Level 4 (20288) Global (96072) Diagnoses Back abscess L02.212 Status post incision and drainage Z98.890
== END 2023-05-04 15:19 | disposition home or self-care (01) ==
PROVIDERS: PCP Internal Medicine; Visit Provider Surgery
DX: L02.212 Cutaneous abscess of back [any part, except buttock and flank] (principal); Z98.890 Other specified postprocedural states
CPT/HCPCS: 99024

== ENCOUNTER → 2023-05-04 15:01 | Outpatient (BNVA) | payer OTHER, SELFPAY | PROVIDERS: PCP Internal Medicine; Visit Provider Surgery ==

== ENCOUNTER → 2023-05-06 15:27 | Outpatient (BNVA) | payer OTHER, SELFPAY | PROVIDERS: PCP Internal Medicine; Visit Provider Surgery | DX: Z48.01 Encounter for change or removal of surgical wound dressing (principal) | CPT/HCPCS: 99211 ==

== ENCOUNTER → 2023-05-07 12:25 | Outpatient (BNVA) | payer OTHER, SELFPAY | PROVIDERS: PCP Internal Medicine; Visit Provider Surgery ==

== ENCOUNTER → 2023-05-11 14:55 | Outpatient (BNVA) | payer OTHER, SELFPAY | PROVIDERS: PCP Internal Medicine; Visit Provider Surgery | DX: Z48.00 Encounter for change or removal of nonsurgical wound dressing (principal) | CPT/HCPCS: 99211 ==

== ENCOUNTER → 2023-05-13 15:29 | Outpatient (BNVA) | payer OTHER, SELFPAY | PROVIDERS: PCP Internal Medicine; Visit Provider Surgery | DX: Z48.01 Encounter for change or removal of surgical wound dressing (principal) | CPT/HCPCS: 99211 ==

== ENCOUNTER → 2023-05-14 12:32 | Outpatient (BNVA) | payer OTHER, SELFPAY | PROVIDERS: PCP Internal Medicine; Visit Provider Surgery | DX: Z48.00 Encounter for change or removal of nonsurgical wound dressing (principal) | CPT/HCPCS: 99211 ==

== ENCOUNTER → 2023-05-18 15:31 | Outpatient (BNVA) | payer OTHER, SELFPAY | PROVIDERS: PCP Internal Medicine; Visit Provider Surgery | DX: Z48.01 Encounter for change or removal of surgical wound dressing (principal) | CPT/HCPCS: 99211 ==

== ENCOUNTER 2023-05-25 11:40 | Outpatient (AMB) | payer OTHER, SELFPAY ==
--- NOTE | 2023-05-25 11:45 | MHC.OFFVIS ---
Intake Vital Signs 05/25/23 11:47 Height 6 ft Weight 311 lb BMI 42.2 BP 183/103 H Blood Pressure Location Rt brachial Position Sitting Pulse 105 H Intake Visit Reasons: s/p I&D of mass on back, wound check Intake Note: Patient here s/p I&D on back. Reports abscess has healed. Patient c/o:itch, feels tiny prick sensation along scar on back. Patient would like to address umbilical hernia at a later date. Barrel Centerer Required: No Accompanied by: Self / Same As Patient Allergies No Known Allergies Allergy (Verified 05/25/23 11:46) HPI HPI Comments History of Present Illness Details Status post I&D of massive left upper back sebaceous cyst abscess. Patient has no wound issues. He thinks it is healing well. [facility] Medical History HSV-2 (herpes simplex virus 2) infection Severe obesity with body mass index (BMI) of 35.0 to 39.9 with comorbidity Essential hypertension Obese Essential hypertension Dyslipidemia Increased BMI Smoker IBS (irritable bowel syndrome) Diabetes mellitus HALI on CPAP Chronic cholecystitis due to cholelithiasis with choledocholithiasis Acalculous cholecystitis Upper abdominal pain Gallstones Surgical History H/O colonoscopy Hx laparoscopic cholecystectomy (03/18/20) History of back surgery History of surgery Family History Father Diabetes Mother Diabetes HTN (hypertension) Sister Diabetes Other Heart problem Social History Housing: House Are you a primary dialysis patient care technician to a significant other at home: No Do you presently have visiting nurse or other home services: No Alcohol intake: current Alcohol intake frequency: does not drink Alcohol type: beer Comment: medicated earlier, see MAR Patient Tobacco Use Status: Former Tobacco user Tobacco use type: Cigarette Years Smoked: 25 e-Cigarette/Vaping Use: Currently Using Second Hand Smoke Exposure: No service: No Current occupational status: employed Current occupational exposures/hazards: No Cognitive needs: No Hearing needs: No Vision needs: No Physical Exam Vital Signs: Last Vital Signs Pulse 105 H 05/25/23 11:47 BP 183/103 H 03/12/24 11:47 BMI result Body Mass Index 42.2 GI Other: Corpulent abdomen with umbilical hernia, ap proximally 4 cm reducible Back/Spine/Pelvis Other: Left upper back wound is nearly healed. Overlying eschar. No infection. Assessment & Plan Assessment & Plan (1) Status post incision and drainage: Code(s): Z98.890 - Other specified postprocedural states (2) Umbilical hernia: Code(s): K42.9 - Umbilical hernia without obstruction or gangrene Plan Present, patient does not wish to adjust hernia because of work-related issues. He will contact me when it is convenient for him to undergo hernia evaluation and repair. In the meantime, back wound is nearly healed. He will follow-up regarding this p.r.n.. All questions answered. Coding Level of Care Code Est Pt Level 3 (27158) Global (13824) Diagnoses Status post incision and drainage Z98.890 Umbilical hernia K42.9
[2023-05-25 11:47] VITALS: BP 183/103; PULSE 105; BMI 42.2
== END 2023-05-25 11:53 | disposition home or self-care (01) ==
PROVIDERS: PCP Internal Medicine; Visit Provider Surgery
DX: Z98.890 Other specified postprocedural states (principal); K42.9 Umbilical hernia without obstruction or gangrene
CPT/HCPCS: 99024; 99213

== ENCOUNTER → 2023-05-25 11:40 | Outpatient (BNVA) | payer OTHER, SELFPAY | PROVIDERS: PCP Internal Medicine; Visit Provider Surgery ==

== ENCOUNTER 2024-02-16 14:29 | Outpatient (AMB) | payer OTHER, SELFPAY ==
--- NOTE | 2024-02-16 14:30 | A.OFFVIS_ITS ---
Intake Visit Reasons: phimosis Intake Note: Patient is present for PHIMOSIS Urology Medication:NONE Antibiotic Allergy:NONE Blood Thinner:NONE Bridges And Buildings Supervisor Required: No Allergies No Known Allergies Allergy (Verified 02/16/24 14:30) HPI Comments Details: Andrea is a pleasant male. He is a patient of Dr. Boyer. He seen for the following urologic conditions - phimosis in setting of diabetes and morbid obesity - erectile dysfunction in setting of diabetes On evaluation able to withdrawal foreskin Has cracking around foreskin area Discussed conservative therapy versus circumcision Combination cream prescribed Progressive erectile dysfunction Trial tadalafil daily PFSH Medical History HSV-2 (herpes simplex virus 2) infection Severe obesity with body mass index (BMI) of 35.0 to 39.9 with comorbidity Essential hypertension Obese Essential hypertension Dyslipidemia Increased BMI Smoker IBS (irritable bowel syndrome) Diabetes mellitus HALI on CPAP Chronic cholecystitis due to cholelithiasis with choledocholithiasis Acalculous cholecystitis Upper abdominal pain Gallstones Surgical History H/O colonoscopy Hx laparoscopic cholecystectomy (03/18/20) History of back surgery History of surgery Family History Father Diabetes Mother Diabetes HTN (hypertension) Sister Diabetes Other Heart problem Social History Housing: House Are you a primary acute care registered nurse to a significant other at home: No Do you presently have visiting nurse or other home services: No Alcohol intake: current Alcohol intake frequency: does not drink Alcohol type: beer Comment: medicated earlier, see MAR Patient Tobacco Use Status: Former Tobacco user Tobacco use type: Cigarette Years Smoked: 25 e-Cigarette/Vaping Use: Currently Using Second Hand Smoke Exposure: No service: No Current occupational status: employed Current occupational exposures/hazards: No Cognitive needs: No Hearing needs: No Vision needs: No Assessment & Plan Assessment & Plan (1) Erectile dysfunction associated with type 2 diabetes mellitus: Code(s): E11.69 - Type 2 diabetes mellitus with other specified complication; N52.1 - Erectile dysfunction due to diseases classified elsewhere Category: Medical Plan Topical therapy Tadalafil 3 month follow-up Medications: New clotrimazole-betamethasone 1-0.05 % Apply thin coat 2 times per day for 2-3 days after intercourse 1 appl topical BID 45 grams 0RF 4 weeks N48.1 - Balanitis tadalafil Daily medication BIN PCN Group [facility] [id number] 5 mg PO DAILY 90 tabs 0RF sexual activity 90 days E11.69 - Type 2 diabetes mellitus with other specified complication, N52.1 - Erectile dysfunction due to diseases classified elsewhere Patient Instructions: Imaging studies, laboratory and physical exam results were discussed and reviewed in detail. No major barriers to patient understanding were identified. An opportunity to ask questions regarding the treatment plan was provided. All questions were answered. The patient expressed understanding and agreement with the above treatment plan. The patient is aware they should contact our office by phone for worsening of their current condition or the appearance of new urologic symptoms. Compliance is encouraged with any medications and followup testing that is ordered. It is a privilege to participate in the urologic care of your patient. If you have any questions or concerns regarding treatment for the above conditions, or other urologic issues, please do not hesitate to contact me. The office telephone contact is [phone]. This note is constructed using voice recognition software. While every effort has been made to ensure accuracy tractor sweeper driver errors may have been included. Yours sincerely, Dr Kleber Irizarry MD, [facility] Urology Providers of Expert, Compassionate Care for the Genitourinary System Coding Level of Care Code New Pt Level 4 (82474) Diagnoses Erectile dysfunction associated with type 2 diabetes mellitus E11.69; N52.1
== END 2024-02-16 14:43 | disposition home or self-care (01) ==
PROVIDERS: PCP Internal Medicine; Visit Provider Urology
DX: E11.69 Type 2 diabetes mellitus with other specified complication (principal); N52.1 Erectile dysfunction due to diseases classified elsewhere
CPT/HCPCS: 99204

== ENCOUNTER 2024-05-09 15:05 | Outpatient (AMB) | payer OTHER, SELFPAY ==
--- NOTE | 2024-05-09 15:17 | A.OFFPC_ITS ---
Vital Signs 05/09/24 15:22 Height 6 ft Weight 300 lb BMI 40.7 BP 132/86 Blood Pressure Location Lt brachial Position Sitting Intake Visit Reasons: Annual Exam Intake Note: Patient here for an annual physical exam Drawbench Operator Required: Yes Drawbench Operator Language: Energy Engineer Name: Linda Boyer MD Information Interpreted: non-clinical & clinical Accompanied by: Self / Same As Patient Allergies No Known Allergies Allergy (Verified 05/09/24 15:41) Medication List - Last Reconciled 05/09/24 by Linda Boyer MD atorvastatin 20 mg PO BEDTIME 90 days blood pressure monitor As directed lisinopril 30 mg PO DAILY 30 days Tobacco use date assessed: 05/09/24 Dental Screening Dental Screen Date: 05/09/24 Did you have a dental visit in the last 12 months?: No Did you have a dental problem in the last 6 months where you did not have access to dental care?: No Was dental information given to patient?: Patient has dentist HPI HPI Comments History of Present Illness Details The patient is a 43-year-old male presenting for an annual physical examination and management of diabetes mellitus type 2. He reports that his blood sugar levels have been consistently high, with a recent measurement of 12.3% for HbA1c. The patient has a history of hyperlipidemia, currently managed with atorvastatin 20 mg, and essential hypertension controlled with lisinopril 30 mg. He underwent cholecystectomy and has had three back surgeries. He is morbidly obese with a BMI of 40.7 and declines weight loss surgery. Advised to diet and exercise to reach BMI goal less than 30. The patient mentions being seen by an explosive ordnance disposal specialist due to diabetic retinopathy, with three corrective procedures undertaken. He describes difficulty with near vision. There is no mention of any current medication allergies. The patient has a familial history of diabetes, noting that both his parents have the condition. His depression is noted as mild, with a PHQ-9 score of 11, though he declines medication for it. He experiences difficulty sleeping and reports better rest while in a sitting position due to obstructive sleep apnea. He mentions using a CPAP machine at one time. He quit smoking approximately 4 years ago, drinks beer occasionally, and avoids consumption of certain medications like MyFarming due to gastrointestinal discomfort. - Colonoscopy performed in 2022 with a r ecommendation for repeat in one to two years - Last tetanus vaccination recorded in 2 012, due for a booster - Discussion of weight management and di etary monitoring - Scheduled for fasting blood tests - Insulin therapy discussed for diabetes management - Referral to endocrinology referred for diabetes control [facility] Medical History (Updated 05/09/24 @ 21:35 by Linda Boyer MD) Erectile dysfunction associated with type 2 diabetes mellitus HSV-2 (herpes simplex virus 2) infection Severe obesity with body mass index (BMI) of 35.0 to 39.9 with comorbidity Essential hypertension Obese Essential hypertension Dyslipidemia Increased BMI Smoker IBS (irritable bowel syndrome) Diabetes mellitus HALI on CPAP Chronic cholecystitis due to cholelithiasis with choledocholithiasis Acalculous cholecystitis Upper abdominal pain Gallstones Surgical History H/O colonoscopy Hx laparoscopic cholecystectomy (03/18/20) History of back surgery History of surgery Family History Father Diabetes Mother Diabetes HTN (hypertension) Sister Diabetes Other Heart problem Social History (Updated 05/09/24 @ 15:45 by Linda Boyer MD) Housing: House Are you a primary respite care provider to a significant other at home: No Do you presently have visiting nurse or other home services: No Alcohol intake: current Alcohol intake frequency: holidays/special occasions only Alcohol type: beer Comment: medicated earlier, see MAR Patient Tobacco Use Status: Former Tobacco user Tobacco use type: Cigarette Years Smoked: 25 e-Cigarette/Vaping Use: Currently Using Second Hand Smoke Exposure: No service: No Current occupational status: employed Current occupational exposures/hazards: No Cognitive needs: No Hearing needs: No Vision needs: No Questionnaire PHQ-9 Over the last 2 weeks, how often have you been bothered by any of the following problems? 1. Little interest or pleasure in doing things: several days 2. Feeling down, depressed, or hopeless: several days 3. Trouble falling or staying asleep, or sleeping too much: more than half the days 4. Feeling tired or having little energy: more than half the days 5. Poor appetite or overeating: several days 6. Feeling bad about yourself - or that you are a failure or have let yourself or your family down: several days 7. Trouble concentrating on things, such as reading the newspaper or watching television: several days 8. Moving or speaking so slowly that other people could have noticed. Or the opposite - being so fidgety or restless that you have been moving around a lot more than usual: several days 9. Thoughts that you would be better off or of hurting yourself in some way: several days Total score: 11 Depression Screening Interpretation: Positive Depression Screening Follow-up: Existing condition, Follow-up Visit Requested and Declines treatment Depression Screening Done: Yes 03614 - PHQ-9 Billing: Yes Source: Developed by Drs. Wilson Cho, Leana Montoya, Logan Akhtar and colleagues, with an educational daisy from [employer]. Thrive Questionnaire Date Thrive assessed: 05/09/24 I am a: Patient What is your living situation today?: I have a steady place to live Within the past 12 months, did the food you bought not last and you didn't have the money to get more?: Never true Within the past 12 months, did you worry whether your food would run out before you got money to buy more?: Never true Do you have trouble paying for medicines?: No Do you have trouble getting transportation to medical appointments?: No Do you have trouble paying your heating and electricity bill?: No Do you have trouble taking care of your child, family member or friend?: No Do you have trouble with day-to-day activities such as bathing, preparing meals, shopping, managing finances, etc.?: No Are you currently unemployed and looking for a job?: No Are you interested in more education?: No Please select the resources that you would like help with: None Currently or been in a relationship where the following occur: No concerns reported THRIVE Score: 0 AUDIT C Alcohol Use Questionnaire (AUDIT-C) 1. How often do you have a drink containing alcohol?: Monthly or less 2. How many drinks containing alcohol do you have on a typical day when you are drinking?: 1 or 2 3. How often do you have six or more drinks on one occasion?: Never Total Score: 1 Score Reviewed/Action Taken: No TODD-7 AMB Questionnaire TODD-7 Date TODD - 7 assessed: 05/09/24 Feeling nervous, anxious, or on edge: 0 = Not at all Not being able to stop or control worryin = Not at all Worrying too much about different things: 0 = Not at all Trouble relaxin = Not at all Being so restless that it is hard to sit still: 0 = Not at all Becoming easily annoyed or irritable: 0 = Not at all Feeling afraid as if something awful might happen: 0 = Not at all Total TODD-7 score (0-4 normal; 5-9 mild; 10-14 moderate; 15-21 severe): 0 Source: Developed by Drs. Wilson Cho, Leana Montoya, Logan Akhtar and colleagues, with an educational daisy from [employer]. TODD-7 Assessment Billing TODD-7 Assessment Tool: TODD-7 Assessment 86791 Review of Systems Const All systems reviewed & are unremarkable except as noted in HPI and below Card Denies chest pain at rest, Denies chest pain with activity, Denies edema, Denies irregular heart rhythm, Denies claudication, Denies dyspnea, Denies dyspnea on exertion, Denies orthopnea, Denies paroxysmal nocturnal dyspnea and Denies slow heart rate Resp Denies cough, Denies dyspnea and Denies dyspnea on exertion GI Denies abdominal pain, Denies change in bowel habits, Denies excessive flatus, Denies nausea and Denies vomiting Denies urinary hesitancy, Denies urinary incontinence and Denies urinary urgency Musc Denies abnormal gait, Denies atrophy, Denies deformity and Denies limited range of motion Skin/Breast Denies bleeding lesions, Denies changing lesions and Denies rash Neuro Denies abnormal gait, Denies behavioral changes and Denies lack of coordination Psych Denies behavioral changes Physical exam (Primary Care) Vital Signs: Last Vital Signs BP 132/86 05/09/24 15:22 BMI result Body Mass Index 40.7 BMI Assessment/Plan discussion: High BMI High, discussed plan: lifestyle, weight reduction, dietary and physical activity Tobacco/Smoking Status: Tobacco use Status Tobacco use date assessed 05/09/24 05/09/24 15:24 Patient Tobacco Use Status Former Tobacco user 05/09/24 15:45 Tobacco use type Cigarette 05/09/24 15:45 e-Cigarette/Vaping Use Currently Using 05/09/24 15:45 PHQ-9: PHQ-9 Score PHQ-9: Total score 11 05/09/24 16:02 Depression Screening Interpretation: Positive Depression Screening Follow-up: Existing condition, Follow-up Visit Requested and Declines treatment Thrive Assessment: Date of Thrive Assessment Date Thrive assessed 05/09/24 05/09/24 15:24 Currently or been in a relationship where the following occur: No concerns reported [facility] Head: Yes normal to inspection, Yes normocephalic and Yes atraumatic Ears: external ears normal Eyes General: appearance normal, both eyes and all related structures Eyelids: Yes eyelids normal Conjunctivae: conjunctivae normal Neck Neck: Yes normal visual inspection and Yes supple Resp Effort & Inspection: normal respiratory effort Auscultation: clear to auscultation bilaterally Cardio Jugular venous distension: no JVD Rate: regular rate Rhythm: regular rhythm Heart sounds: S1 normal heart sound present and S2 normal heart sound present GI Inspection: Yes normal to inspection Palpation (GI): Soft to palpation and nontender Auscultation: normal bowel sounds Skin General skin exam: no rashes or lesions noted Neuro General: no focal motor deficits Extrem General: Yes full ROM Psych Appearance: grossly normal Results AMB Hemoglobin A1c AMB Hemoglobin A1c 12.3 % Last Edit by MANJIT Appiah on 05/09/24 15: 40 Immunizations Boostrix Tdap 2.5 Lf unit-8 mcg-5 Lf/0.5 mL intramuscular syringe Performing Provider: Linda Boyer MD [facility] Administered by: MANJIT Larson on 05/09/24 16:02 Dose Route Admin Location Dispensed Lot Number Expiration Date [facility] Unit Trust Manager 0.5 mL IM Left Deltoid 0.5 mL [id number] 07/01/26 [id number] [employer] VIS Given Date VIS Provided VIS Publication Date 05/09/24 Single Vaccine 20 Eligibility Eligibility Date Funding Source Not [facility] Eligible 05/09/24 Private Results Reviewed Results Reviewed: Laboratory Last Values Hgb A1c (Clinic) 12.3 % (4.0-6.0) H 05/09/24 15:13 Coding Level of Care Code Est Pt Prev Care 40-64y(95279) Diagnoses Physical exam Z00.00 Morbid obesity with body mass index (BMI) of 40.0 to 44.9 in adult E66.01; Z68.41 Type 2 diabetes mellitus with hyperglycemia, with long-term current use of insulin E11.9 Additional Codes TODD-7 Assessment Billing - TODD-7 Assessment Tool: TODD-7 Assessment 99170 ([id number]) PHQ-9 - 67122 - PHQ-9 Billing: Yes ([id number]) Time Spent (min) 35 Assessment & Plan Assessment & Plan (1) Physical exam: Code(s): Z00.00 - Encounter for general adult medical examination without abnormal findings Category: Medical (2) Morbid obesity with body mass index (BMI) of 40.0 to 44.9 in adult: Code(s): E66.01 - Morbid (severe) obesity due to excess calories; Z68.41 - Body mass index [BMI] 40.0-44.9, adult Category: Medical (3) Diabetes mellitus: Comment: IDDM Code(s): E11.9 - Type 2 diabetes mellitus without complications Category: Medical Plan - Administer tetanus vaccine today - Prescribe insulin therapy for diabetes management - Refer to endocrinology for diabetes management - Recommend fasting blood glucose tests to assess current levels - Discuss benefits of weight management and provide dietary guidance - Schedule colonoscopy as indicated - Monitor depression and consider non-pharmacologic management options - Encourage continued abstinence from smoking - Continually monitor eye health due to diabetic retinopathy Patient was informed and verbally consented to the use of an ambient scribe for clinic note documentation during this visit. During the visit, I emphasized the need to address the patient's elevated HbA1c with insulin therapy and an endocrinology referral for more specialized diabetes management. We discussed the importance of administering the tetanus vaccine as it is due. I explained the need for adjustments in managing obstructive sleep apnea and monitoring of depressive symptoms with non-pharmacological strategies. The patient was informed about the necessity of maintaining regular screening and lab evaluations such as repeat colonoscopy and scheduled fasting blood tests to keep his health management proactive. Orders: Orders Lipid Panel Today E78.5 - Hyperlipidemia, unspecified Microalbumin, Random (w Creat) Today R80.9 - Proteinuria, unspecified Comprehensive [place]. Panel Fast Today E11.9 - Type 2 diabetes mellitus without complications TDaP Immunization Today Z23 - Encounter for immunization AMB Hemoglobin A1c Today E11.9 - Type 2 diabetes mellitus without complications Referrals Endocrinology Referral E11.9 - Type 2 diabetes mellitus without complications Gastroenterology Referral Z08 - Encounter for follow-up examination after completed treatment for malignant neoplasm, Z85.038 - Personal history of other malignant neoplasm of large intestine Medications: New insulin degludec (Tresiba FlexTouch U-100 insulin) 20 units (0.2 mL) subcut BEDTIME 6 mL 6RF 30 days E11.9 - Type 2 diabetes mellitus without complications pen needle, diabetic (BD Ultra-Fine Mini Pen Needle) 1 ea miscellaneous DAILY 100 ea 2RF 100 days E11.9 - Type 2 diabetes mellitus without complications Refilled atorvastatin 20 mg PO BEDTIME 90 tabs 1RF 90 days lisinopril 30 mg PO DAILY 30 tabs 4RF 30 days Patient Instructions: - Get the tetanus booster today - Start insulin therapy as directed - Follow up with endocrinology for further diabetes evaluation and management - Have fasting blood tests as scheduled this week - Contact for any acute vision changes or difficulties - Remain vigilant about lifestyle changes aimed at weight management - Report any significant mood changes for further evaluation - Maintain abstinence from smoking and limit alcohol consumption - Use CPAP consistently to manage obstructive sleep apnea symptoms - Expect to be contacted for scheduling the repeat colonoscopy
[2024-05-09 15:22] VITALS: BP 132/86; BMI 40.7
--- OUTSIDE RECORDS SUMMARY | 2024-05-09 18:53 | XMS_ITS | Clinical Summary ---
Author Organization [facility] Address [address] [place] [address] Care Team Providers Care Branding Machine Operator Name Role Phone Unavailable Primary Care Provider Unavailabl e Social History Tobacco Use Types Packs/Day Years Used Date Smoking Tobacco: Never Assessed Sex and Gender Information Value Date Recorded Sex Assigned at Not on file Legal Sex Male 10:46 PM EST Gender Identity Not on file Sexual Orientation Not on file Plan of Treatment Health Maintenance Due Date Last Done Comments DTaP,Tdap,and Td Vaccines (1 - Tdap) 1997 Hepatitis B Vaccines (1 of 3 - 19+ 3-dose series) 1997 COVID-19 Vaccine (2023-2 5 season) 2023 Influenza Vaccine (#1) 2023 HIB Vaccines Aged Out No longer eligi ble based on patient's age to complete this topic HPV Vaccines Aged Out No longer eligi ble based on patient's age to complete this topic Hepatitis A Vaccines Aged Out No long er eligible based on patient's age to complete this topic IPV Vaccines Aged Out No longer eligi ble based on patient's age to complete this topic MMR Vaccines Aged Out No longer eligi ble based on patient's age to complete this topic Meningococcal ACWY Vaccine Aged Out N o longer eligible based on patient's age to complete this topic Meningococcal B Vacine Aged Out No lo nger eligible based on patient's age to complete this topic Pneumococcal Vaccine: Pediat rics (0 to 5 Years) and At-Risk Patients (6 to 64 Years) Aged Out No longer eligible b ased on patient's age to complete this topic RSV Immunization Patients Un irma 20 months Aged Out No longer eligible b ased on patient's age to complete this topic Varicella Vaccines Aged Out No longer eligible based on patient's age to complete this topic
== END 2024-05-09 16:04 | disposition home or self-care (01) ==
PROVIDERS: PCP Internal Medicine; Visit Provider Internal Medicine
DX: Z00.00 Encounter for general adult medical examination without abnormal findings (principal); E66.01 Morbid (severe) obesity due to excess calories; Z68.41 Body mass index [BMI] 40.0-44.9, adult; E11.9 Type 2 diabetes mellitus without complications; Z23 Encounter for immunization

== ENCOUNTER → 2024-05-09 15:05 | Outpatient (BNVA) | payer OTHER, SELFPAY | PROVIDERS: PCP Internal Medicine; Visit Provider Internal Medicine | DX: Z00.00 Encounter for general adult medical examination without abnormal findings (principal); Z23 Encounter for immunization; E66.01 Morbid (severe) obesity due to excess calories; Z68.41 Body mass index [BMI] 40.0-44.9, adult; E11.9 Type 2 diabetes mellitus without complications | CPT/HCPCS: 83036; 90471; 90715; 96127 ==

== ENCOUNTER 2024-05-17 15:06 | Outpatient (AMB) | payer OTHER, SELFPAY ==
--- NOTE | 2024-05-17 15:06 | MHC.OFFVIS ---
Intake Visit Reasons: 3M/ERECTILE DYS/MED REVIEW(TADALAFIL)SET Intake Note: Patient is present for 3m/ECECTILE DYS/MED REVIEW Urology Medication:NONE Antibiotic Allergy:NONE Blood Thinner:NONE Air Plant Engineer Required: No Allergies No Known Allergies Allergy (Verified 05/17/24 15:07) HPI Comments Details: Andrea is a pleasant male. He is a patient of Dr. Boyer. He seen for the following urologic conditions - phimosis in setting of diabetes and morbid obesity - erectile dysfunction in setting of diabetes Telemedicine Evaluation 15 min Consultation [employer] [place] [employer] Video Marla responded to topical therapy Discussed high HbA1c Insurance does not cover his needed insulin dosage Progressive erectile dysfunction in setting of diabetes Tadalafil 5 mg daily Tadalafil 20 mg on demand Medications refilled an explanation provided on how to use PFSH Medical History (Updated 05/17/24 @ 15:27 by Kleber Irizarry MD) Erectile dysfunction associated with type 2 diabetes mellitus HSV-2 (herpes simplex virus 2) infection Severe obesity with body mass index (BMI) of 35.0 to 39.9 with comorbidity Essential hypertension Obese Essential hypertension Dyslipidemia Increased BMI Smoker IBS (irritable bowel syndrome) Diabetes mellitus HALI on CPAP Chronic cholecystitis due to cholelithiasis with choledocholithiasis Acalculous cholecystitis Upper abdominal pain Gallstones Surgical History H/O colonoscopy Hx laparoscopic cholecystectomy (03/18/20) History of back surgery History of surgery Family History Father Diabetes Mother Diabetes HTN (hypertension) Sister Diabetes Other Heart problem Social History (Updated 05/09/24 @ 15:45 by Linda Boyer MD) Housing: House Are you a primary medicare contact specialist to a significant other at home: No Do you presently have visiting nurse or other home services: No Alcohol intake: current Alcohol intake frequency: holidays/special occasions only Alcohol type: beer Comment: medicated earlier, see MAR Patient Tobacco Use Status: Former Tobacco user Tobacco use type: Cigarette Years Smoked: 25 e-Cigarette/Vaping Use: Currently Using Second Hand Smoke Exposure: No service: No Current occupational status: employed Current occupational exposures/hazards: No Cognitive needs: No Hearing needs: No Vision needs: No Review of Systems Const All systems reviewed & are unremarkable except as noted in HPI and below Reports no additional complaints Resp Reports no additional complaints GI Reports no additional complaints Reports as per HPI Musc Reports no additional complaints Physical Exam Telemedicine evaluation Appropriate responses Regular breathing rate and rhythm HEENT Head: Yes normal to inspection Ears: hearing grossly normal bilaterally Eyes General: appearance normal, both eyes and all related structures Neck Neck: Yes normal visual inspection Chest Chest palpation & inspection: normal inspection of the chest Resp Effort & Inspection: normal respiratory effort and able to speak in complete sentences Telehealth Telehealth Telehealth Platform: i[employer] Location of provider rendering services: practice address Location of patient: address on file Patient Identification confirmed using: Name, : Yes Telehealth method: video Patient verbally consented to treatment: Yes Patient verbally consented to billing insurance company: Yes Patient informed of any privacy concerns related to visit: Yes Minutes spent on Phone/Video with Pt.: 15 Assessment & Plan Assessment & Plan (1) Balanitis: Code(s): N48.1 - Balanitis Category: Medical (2) Erectile dysfunction associated with type 2 diabetes mellitus: Code(s): E11.69 - Type 2 diabetes mellitus with other specified complication; N52.1 - Erectile dysfunction due to diseases classified elsewhere Category: Medical Plan Prescription on demand and daily tadalafil Medications: New tadalafil On demand medication take 60 minutes before intended activity [facility] Group [facility] [address]33 [id number] 20 mg PO ONCE 30 days PRN 30 tabs 1RF sexual activity E11.69 - Type 2 diabetes mellitus with other specified complication, N52.1 - Erectile dysfunction due to diseases classified elsewhere tadalafil Take daily [facility] Group [facility] [address] [id number] 5 mg PO DAILY 90 days 90 tabs 1RF E11.69 - Type 2 diabetes mellitus with other specified complication, N52.1 - Erectile dysfunction due to diseases classified elsewhere Patient Instructions: This note is constructed using voice recognition software. While every effort has been made to ensure accuracy mental health tech errors may have been included. Imaging studies, laboratory and physical exam results were discussed and reviewed in detail. No major barriers to patient understanding were identified. An opportunity to ask questions regarding the treatment plan was provided. All questions were answered. The patient expressed understanding and agreement with the above treatment plan. The patient is aware they should contact our office by phone for worsening of their current condition or the appearance of new urologic symptoms. Compliance is encouraged with any medications and followup testing that is ordered. It is a privilege to participate in the urologic care of your patient. If you have any questions or concerns regarding treatment for the above conditions, or other urologic issues, please do not hesitate to contact me. The office telephone contact is [phone]. Sincerely, Dr Kleber Irizarry MD, [facility] - Urology Compassionate Specialist Care for the Genitourinary System Coding Level of Care Code Tele Est Pt Level 4 (87580) Diagnoses Balanitis N48.1 Erectile dysfunction associated with type 2 diabetes mellitus E11.69; N52.1
--- OUTSIDE RECORDS SUMMARY | 2024-05-17 18:16 | XMS_ITS | Clinical Summary ---
[facility] Address [address] [place] [address] Care Team Providers Care Adoption Agent Name Role Phone Unavailable Primary Care Provider [...]
== END 2024-05-17 15:36 | disposition home or self-care (01) ==
LOC: HO.HUSH 15:06
PROVIDERS: PCP Internal Medicine; Visit Provider Urology
DX: N48.1 Balanitis (principal); E11.69 Type 2 diabetes mellitus with other specified complication; N52.1 Erectile dysfunction due to diseases classified elsewhere
CPT/HCPCS: 99214

== ENCOUNTER → 2024-05-17 15:06 | Outpatient (BNVA) | payer OTHER, SELFPAY | PROVIDERS: PCP Internal Medicine; Visit Provider Urology ==

== ENCOUNTER 2024-06-01 15:31 | Outpatient (AMB) | payer OTHER, SELFPAY ==
--- NOTE | 2024-06-01 15:35 | A.OFFVIS_ITS ---
Vital Signs 06/01/24 15:36 Height 6 ft Weight 313 lb 0.902 oz BMI 42.5 BP 128/84 Blood Pressure Location Rt brachial Position Sitting Pulse 104 H Pulse Source Pulse Oximeter Pulse Oximetry (%) 98 Oxygen Delivery Method Room Air Intake Visit Reasons: T2DM Intake Note: NEW Patient presents today to establish treatment for Type 2 Diabetes Mellitus: Last Diabetic eye exam was on: Getting monthly eyes injections Last Podiatry exam was on: Patient does not see a [employer] Marker Most recent HbA1c: 12.3%, 05/09/2024 Random Glucose- 364 mg/dL, Today Files Supervisor Required: No Accompanied by: Self / Same As Patient Allergies No Known Allergies Allergy (Verified 05/17/24 15:07) HPI Comments Details: [age] YO male who is seen in consultation for DM at the request of PCP. Initially diagnosed with T2DM 2002 Was initially started on treatment with metformin self discontinued upset stomach most of the time diarrhea Has not been on GLp-1 agonist, jardiance hadn't started tighs used glipizide in the past ineffective Was on insulin in the past not sure what type of insulin Off all medications for one and a half years due to cost. Gladis was sent to his pharmacy but was told it was not covered by his insurance. Current regimen: no medication Has not been checking his sugars Reports low sugars: no history of lows A1C 05/09/2024 12.3%, 10/2022 12.4% Family history of T2DM: Mother father and sibling Has diabetic retinopathy getting monthly injections. Has some neuropathy: numbness/tingling [Denies] nephropathy, on [FRANCESCO/ARB]. UAC [] as measured on []. Has HLD, on statin recently started. Last LDL 122 2021 Denies CAD. Diet: trys to balance but has difficulty with this Gets some exercise [facility] Medical History Erectile dysfunction associated with type 2 diabetes mellitus HSV-2 (herpes simplex virus 2) infection Severe obesity with body mass index (BMI) of 35.0 to 39.9 with comorbidity Essential hypertension Obese Essential hypertension Dyslipidemia Increased BMI Smoker IBS (irritable bowel syndrome) Diabetes mellitus HALI on CPAP Chronic cholecystitis due to cholelithiasis with choledocholithiasis Acalculous cholecystitis Upper abdominal pain Gallstones Surgical History H/O colonoscopy Hx laparoscopic cholecystectomy (03/18/20) History of back surgery History of surgery Family History Father Diabetes Mother Diabetes HTN (hypertension) Sister Diabetes Other Heart problem Social History Housing: House Are you a primary child care provider to a significant other at home: No Do you presently have visiting nurse or other home services: No Alcohol intake: current Alcohol intake frequency: holidays/special occasions only Alcohol type: beer Comment: medicated earlier, see MAR Patient Tobacco Use Status: Former Tobacco user Tobacco use type: Cigarette Years Smoked: 25 e-Cigarette/Vaping Use: Currently Using Second Hand Smoke Exposure: No service: No Current occupational status: employed Current occupational exposures/hazards: No Cognitive needs: No Hearing needs: No Vision needs: No Physical Exam Vital Signs: Last Vital Signs Pulse 104 H 06/01/24 15:36 BP 128/84 06/01/24 15:36 Pulse Ox 98 06/01/24 15:36 Oxygen Delivery Method Room Air 06/01/24 15:36 BMI result Body Mass Index 42.5 Absence of Cushingoid features. Absence of acromegalic features. Neck exam reveals nl size thyroid about 15 gms. No thyroid nodules palpable. No carotid bruits present. Lungs CTA. Heart S1 S2, Reg R/R. No M/R/ G. Skin exam reveals absence of vitiligo or acanthosis nigricans. Abdominal exam reveals Soft NT/ND with NA BS. No organomegaly present. Const Other: Absence of Cushingoid features. Absence of acromegalic features. Neck exam reveals nl size thyroid about 15 gms. No thyroid nodules palpable. Heart S1 S2, Reg R/R. No M/R G. Skin exam reveals absence of vitiligo or acanthosis nigricans. Visual exam of foot performed. No ulcerations or open lesions. No inter digit maceration or fissuring. No onychomycosis, no callouses. Sensation diminished to monofilament exam. Vibratory sensation is diminished with 128 Hz tuning fork. Neck Other: . Extrem Other: Visual exam of foot performed. No ulcerations or open lesions. No onchomycosis, no callouses.Pulses 2 + distally Sensation intact to monofilament exam. Vibratory sensation sensed is intact with 128 Hz tuning fork Results Reviewed Results Reviewed: Laboratory Last Values Glucose (Clinic) 364 mg/dL (60-115) H* 06/01/24 15:41 Assessment & Plan Assessment & Plan (1) Diabetes mellitus: Comment: IDDM Code(s): E11.9 - Type 2 diabetes mellitus without complications Category: Medical Plan: 43-year-old diabetic with retinopathy getting monthly injections and neuropathy with historically poor diabetic control secondary to compliance. Will have the patient take insulin and no oral agents until I am able to determine whether he has type 1 versus type 2. He will have C-peptide, demario D antibodies, lipid profile done in the lab Patient will start Semglee 20 units with bedtime and Humalog 8 units with supper. I contacted the patient after our visit and he said initially his readings on freestyle Connie 3 were high but after taking insulin reduced to 113. He was given a freestyle Connie to get started in the office. Given his poor diabetic control, significant retinopathy and neuropathy a freestyle Connie 3+ sensor would greatly benefit the patient. On average patient's drop 1.3% on the A1c just by having the sensor alone. The patient had an opportunity to ask questions regarding treatment plan. The patient expressed understanding and agreement with the above treatment plan. The patient is aware they should contact our office by phone for worsening glucose readings or for any low blood sugars which may warrant a change in diabetes medication. Compliance is encouraged with medications and any followup testing/consults which may have been ordered. Orders: Orders C Peptide Today E11.9 - Type 2 diabetes mellitus without complications Lipid Panel Today E11.9 - Type 2 diabetes mellitus without complications Glutamic acid decarboxylase Ab Today E11.9 - Type 2 diabetes mellitus without complications Islet Cell Antibody Scrn/Titer Today E11.9 - Type 2 diabetes mellitus without complications Medications: New FreeStyle Connie 3 Plus Sensor (blood-glucose sensor) as directed every 15 days 2 ea 11RF NS E11.9 - Type 2 diabetes mellitus without complications insulin glargine-yfgn (Semglee (insulin glargine-yfgn) Pen) 20 units (0.2 mL) subcut QPM 30 days 6 mL 11RF insulin lispro (Humalog KwikPen (U-100) Insulin) with supper 8 units (0.08 mL) subcut DAILY 30 days 6 mL 11RF pen needle, diabetic bid 200 ea 3RF NS Changed From pen needle, diabetic (BD Ultra-Fine Mini Pen Needle) 1 ea miscellaneous DAILY 100 days 100 ea 2RF E11.9 - Type 2 diabetes mellitus without complications To pen needle, diabetic 1 ea miscellaneous DAILY 100 days 200 ea 3RF E11.9 - Type 2 diabetes mellitus without complications Discontinued insulin degludec (Tresiba FlexTouch U-100 insulin) Discontinued Reason: Insurance Denied 20 units (0.2 mL) subcut BEDTIME 30 days 6 mL 6RF E11.9 - Type 2 diabetes mellitus without complications Patient Instructions: Take 15 carb carbohydrate grams to treat a low sugar (3-4 glucose tablets, half a glass of juice or 15 carbohydrate grams of soft candy such as gummie snacks). Recheck your sugar in 15 minutes and re-treat again with 15 carbohydrate grams if low or still with symptoms. Do not drive a car or operate machinery if you do not know what your blood sugar is, if it is low or in excess of 300. Check your feet daily looking for any signs of infection, drainage, redness, ulceration and seek medical attention if this occurs. Break in shoes gradually and do not wear open-toed shoes or walk stocking footed or barefooted. The patient was counseled to achieve a target A1C of 7% (154 avg). Fasting blood sugars should be 90-130 in the morning and less than 180 two hours after meals. Reviewed the relationship between poor diabetic control and the development of complications. Coding Level of Care Code New Pt Level 4 (27467) Complex EM visit Add On G2211 Diagnoses Type 2 diabetes mellitus with hyperglycemia, with long-term current use of insulin E11.9 Time Spent (min) 40 Comment Time spent reviewing labs/provider notes, face to face, chart doc
[2024-06-01 15:36] VITALS: BP 128/84; PULSE 104; O2SAT 98; BMI 42.5
[2024-06-01 15:47] LABS: Glucose, Whole Blood 364 mg/dL (60-115)
--- OUTSIDE RECORDS SUMMARY | 2024-06-01 17:50 | XMS_ITS | Clinical Summary ---
Author Organization [facility] Address [address] [place] [address] Care Team Providers Care Pulmonologist Intensivist Name Role Phone Unavailable Primary Care Provider [...]
== END 2024-06-01 16:39 | disposition home or self-care (01) ==
LOC: HO.ENCR 15:32
PROVIDERS: PCP Internal Medicine; Visit Provider Nurse Practitioner Adult Health
DX: E11.9 Type 2 diabetes mellitus without complications (principal)
CPT/HCPCS: 99204

== ENCOUNTER → 2024-06-01 15:31 | Outpatient (BNVA) | payer OTHER, SELFPAY | PROVIDERS: PCP Internal Medicine; Visit Provider Nurse Practitioner Adult Health | DX: E11.9 Type 2 diabetes mellitus without complications (principal) | CPT/HCPCS: 82947 ==

== ENCOUNTER 2024-07-04 07:28 | Emergency (ER) | payer OTHER, SELFPAY ==
[2024-07-04] VITALS (7 sets, daily range): BP systolic 128–139; BP diastolic 71–76; PULSE 114–124; RESP 20–36; TEMP 36.8; O2SAT 89–96; BMI 40.7
--- NOTE | ~2024-07-04 | CT_ITS ---
EXAMINATION: CT SOFT TISSUE NECK WITH CONTRAST CLINICAL INFORMATION: Concerning abscess. COMPARISON: None available. TECHNIQUE: Following the intravenous administration of 60 mL of Omnipaque 350 intravenous contrast, helical imaging was performed in the axial plane with generation of coronal and sagittal reformatted images. This CT examination was performed using dose optimization techniques as appropriate, variously including the following: *Automated exposure control *Adjustment of mA and/or kV according to patient size (this includes techniques or standardized protocols for targeted exams where dose is matched to indication/reason for exam; i.e. extremities or head) *Use of iterative reconstruction technique DLP: 387 mGy centimeter. FINDINGS: Heterogeneous enhancing and enlarged palatine tonsils resulting in narrowing/obstruction of the upper airways in the oropharynx. No peripheral enhancing fluid collection. No fluid collections in the retropharynx. Heterogeneously enlarged cervical lymphadenopathy, bilaterally. Mild prominent of the lingual tonsils into the vallecula. Heterogeneously enlarged nasopharynx/adenoids resulting in narrowing of the nasopharynx. The larynx is normal. [employer] spaces, parapharyngeal spaces and carotid spaces demonstrated no gross masses or fluid collections. Salivary glands demonstrated no sialolithiasis or enhancing lesion. Thyroid gland is not enlarged. There is no dominant nodule. The vessels are patent. There is mixed plaques in the proximal segments of the ICA, bilaterally. No enhancing lesion or fluid collections in the orbits. There is a pulmonary mosaic pattern. Spondylosis C4-5 and C5-6 level. Mucosal thickening, ethmoid air cells. Tympanic cavities and mastoid cells are aerated. CT/CT soft tissue neck w IV con IMPRESSION: Tonsillar abscesses/phlegmon and associated reactive bilateral cervical lymphadenopathy resulting in obstruction of the oropharynx nasopharynx. Electronically signed by: Baron Franks MD 07/04/2024 10:00 AM EDT
--- NOTE | 2024-07-04 08:08 | ED.GENADULT ---
HPI - General Adult General Chief complaint: Upper Respiratory Symptoms Stated complaint: Sore throat, body aches, SOB Time Seen by Provider: 07/04/24 07:52 Source: patient Mode of arrival: ambulatory Limitations: no limitations History of Present Illness HPI narrative: This is a 43 years old male presented to the emergency department with a chief complaint of difficult to with body aches weakness sore throat and voice changes since Wednesday (2 days ago). He denies any fever any diarrhea any vomiting. Onset (ago): day(s) (2) Location: mouth (throat) Radiation: non-radiation Severity: moderate Quality: burning Pain Consistency: constant Relieving factors: none Exacerbating factors: none Associated symptoms: denies other symptoms Related Data Previous Rx's ?Medication ?Instructions ?Recorded blood pressure monitor #1 ea 04/17/21 lisinopril 30 mg tablet 30 mg PO DAILY 30 days #30 tabs 05/09/24 atorvastatin 20 mg tablet 20 mg PO BEDTIME 90 days #90 tabs 05/10/24 tadalafil 20 mg tablet 20 mg PO ONCE PRN sexual activity 05/17/24 30 days #30 tabs tadalafil 5 mg tablet 5 mg PO DAILY 90 days #90 tabs 05/17/24 FreeStyle Connie 3 Plus Sensor #2 ea 06/01/24 (blood-glucose sensor) insulin glargine-yfgn 100 unit/mL 20 unit (0.2 mL) subcut QPM 30 06/01/24 (3 mL) subcutaneous pen (Semglee days #6 mL (insulin glargine-yfgn) Pen) insulin lispro 100 unit/mL 8 unit (0.08 mL) subcut DAILY 30 06/01/24 subcutaneous pen (Humalog KwikPen days #6 mL (U-100) Insulin) pen needle, diabetic 32 gauge x #200 ea 06/01/24 Allergies Allergy/AdvReac Type Severity Reaction Status Date / Time No Known Allergies Allergy Verified 07/04/24 07:54 Review of Systems Constitutional: Constitutional: Reports no additional constitutional complaints ENT: Reports as per [facility] Past Medical History Attestation statement: The following information was validated with the patient. [facility] Narrative: Diabetes hypertension Medical History Erectile dysfunction associated with type 2 diabetes mellitus HSV-2 (herpes simplex virus 2) infection Severe obesity with body mass index (BMI) of 35.0 to 39.9 with comorbidity Essential hypertension Obese Essential hypertension Dyslipidemia Increased BMI Smoker IBS (irritable bowel syndrome) Diabetes mellitus HALI on CPAP Chronic cholecystitis due to cholelithiasis with choledocholithiasis Acalculous cholecystitis Upper abdominal pain Gallstones Surgical History H/O colonoscopy Hx laparoscopic cholecystectomy (03/18/20) History of back surgery History of surgery Family History Family History Father Diabetes Mother Diabetes HTN (hypertension) Sister Diabetes Other Heart problem Social History Social History Housing: House Are you a primary acute care registered nurse to a significant other at home: No Do you presently have visiting nurse or other home services: No Alcohol intake: current Alcohol intake frequency: holidays/special occasions only Alcohol type: beer Comment: medicated earlier, see MAR Patient Tobacco Use Status: Former Tobacco user Tobacco use type: Cigarette Years Smoked: 25 e-Cigarette/Vaping Use: Currently Using Second Hand Smoke Exposure: No service: No Current occupational status: employed Current occupational exposures/hazards: No Cognitive needs: No Hearing needs: No Vision needs: No Physical Exam ED Vital Signs: Vital Signs - 24 hr 07/04/24 07:53 07/04/24 08:21 07/04/24 08:22 Temperature 98.3 F Pulse Rate 124 H 121 H 119 H Pulse Rate [Left Radial] Respiratory Rate 20 36 H 34 H Blood Pressure 139/76 Pulse Oximetry 94 89 L 95 Oxygen Delivery Method Room Air Room Air Oxymask Oxygen Flow Rate 2 07/04/24 08:59 07/04/24 09:00 07/04/24 13:16 Temperature 98.2 F Pulse Rate 114 H Pulse Rate [Left Radial] 121 H Respiratory Rate 36 H 26 H Blood Pressure 128/71 Pulse Oximetry 89 L 96 Oxygen Delivery Method Room Air Oxymask Oxygen Flow Rate 4 07/04/24 14:32 Temperature 98.2 F Pulse Rate 114 H Pulse Rate [Left Radial] Respiratory Rate 26 H Blood Pressure 128/71 Pulse Oximetry 96 Oxygen Delivery Method Oxymask Oxygen Flow Rate BMI result Body Mass Index 40.7 Mild distress tachycardic Const General: cooperative Nutritional Appearance: well nourished Orientation/consciousness: patient oriented x3 HENMT Head: Yes normal to inspection Ears: hearing grossly normal bilaterally General nose exam: Normal external nose present Mouth: other (Redness swelling of the pharynx exacerbation noted in the tonsil) Neck Neck: Yes normal visual inspection Chest Chest palpation & inspection: normal inspection of the chest Resp Effort & Inspection: normal respiratory effort Auscultation: clear to auscultation bilaterally Cardio Jugular venous distension: no JVD Rate: regular rate Rhythm: regular rhythm GI Inspection: Yes normal to inspection Palpation (GI): Soft to palpation, not firm, nontender and no guarding Percussion: Yes normal to percussion Auscultation: normal bowel sounds Skin General skin exam: no rashes or lesions noted and elasticity normal Rashes: no rashes Neuro General: patient oriented x3 Course Reevaluation(s) Reevaluation #1: Patient workup showed that he has a tonsillary abscess in the lymphadenopathy with the occluded oropharynx. He we would desat if he lies flat, his white count is elevated he is tachycardic at 120 we will need admission however [facility] the does not have ENT as a backup. I called [facility] no bed available I called [facility] the patient was accepted in transfer by Dr. Glaser Time: 11:53 Medications Administered Discontinued Medications Generic Name Dose Route Start Last Admin Trade Name Freq PRN Reason Stop Dose Admin Dexamethasone Sodium Phosphate 10 mg 07/04/24 08:01 07/04/24 08:20 Dexamethasone Sod Phosphate 10 Mg/Ml Vial IVPUSH 07/04/24 08:02 10 mg ONCE ONE Administration Sodium Chloride 1,000 mls @ 999 mls/hr 07/04/24 08:15 07/04/24 09:20 Ns IVCONT 07/04/24 09:15 Infused .Q1H1M AKILA Infusion Ampicillin Sodium/Sulbactam 100 mls @ 200 mls/hr 07/04/24 09:02 07/04/24 10:22 Sodium 3 gm/ Sodium Chloride IV 07/04/24 09:31 Infused ONCE ONE Infusion Sodium Chloride 1,000 mls @ 100 mls/hr 07/04/24 14:00 07/04/24 13:58 Ns IVCONT 100 mls/hr .Q10H AKILA Administration Iohexol 60 ml 07/04/24 09:43 07/04/24 09:43 Iohexol 350 Mg/Ml 75 Ml Infus..Btl IV 07/04/24 09:44 60 ml ONCE ONE Administration Ketorolac Tromethamine 15 mg 07/04/24 08:01 07/04/24 08:20 Ketorolac Tromethamine 15 Mg/Ml Vial IVPUSH 07/04/24 08:02 15 mg ONCE ONE Administration Medical Decision Making Medical Decision Making [facility] Narrative: Patient is here complaining of sore throat inability to swallow we will obtain labs administer IV fluid Decadron Toradol Differential Diagnosis Differential Diagnoses: The differential diagnosis associated with the presentation includes Strep throat/mononucleosis/retro pharyngeal abscess Admission/Observation Consideration of admission/observation: Escalation of care including admission/observation considered Lab Data [facility] Lab Attestation statement: I reviewed the patient's lab results. 07/04/24 08:13 07/04/24 08:13 Labs: Lab Results 07/04/24 Range/Units 08:13 WBC 16.4 H (4.8-10.8) X10*3/uL RBC 4.90 (4.60-5.80) X10*6/uL Hgb 14.4 (14.0-18.0) g/dl Hct 41.8 L (42.0-52.0) % MCV 85.3 (80.0-98.0) fL MCH 29.4 (27.0-33.0) pg MCHC 34.4 (31.0-36.0) g/dl RDW 12.7 (11.0-16.0) % Plt Count 207 (160-400) X10*3/uL MPV 9.0 L (9.4-12.4) fL Immature Gran % (Auto) 0.4 (0.0-0.4) % Neut % (Auto) 86.8 H (45-73) % Lymph % (Auto) 4.7 L (20-40) % [place] % (Auto) 7.7 (2-11) % Eos % (Auto) 0.2 (0-4) % Baso % (Auto) 0.2 (0-2) % Lymph # (Auto) 0.8 L (1.2-4.9) X10*3/uL [place] # (Auto) 1.3 H (0.1-1.2) X10*3/uL Eos # (Auto) 0.0 (0.0-0.4) X10*3/uL Baso # (Auto) 0.0 (0.0-0.2) X10*3/uL Abs Immat Gran (auto) 0.07 H (0.00-0.03) X10*3/uL Absolute Neuts (auto) 14.2 H (2.0-8.3) x10*3/uL Absolute Nucleated RBC 0.000 (0.0-0.012) X10*3/uL Nucleated RBC % (auto) 0.0 (0.0-0.2) /100WBC Sodium 133 L (135-145) mmol/L Potassium 4.2 (3.3-5.1) mmol/L Chloride 99 (96-108) mmol/L Carbon Dioxide 26 (22-29) mmol/L Anion Gap 12 (12-20) BUN 15 (9-16) mg/dL Creatinine 0.83 (0.5-1.4) mg/dL Estim Creat Clear Calc 160.5 Estimated GFR > 60 Random Glucose 337 H (60-115) mg/dL Calcium 8.9 D (8.4-10.2) mg/dL Total Bilirubin 0.9 (0.0-1.0) mg/dL AST 22 (5-37) U/L ALT 26 (0-40) U/L Alkaline Phosphatase 107 (39-117) U/L Total Protein 7.4 (6.5-8.0) g/dL Albumin 4.0 (3.5-5.0) g/dL Monoscreen Negative (Negative) S. pyogenes GrpA JUANIS Positive A (Negative) Independent Interpretation I performed an independent interpretation of an: CT Scan Radiology Impression Discussion of test interpretation with radiology: I have reviewed the radiologist's reading. Radiologist Impression: harynx/adenoids resulting in narrowing of the nasopharynx. The larynx is normal. Sap Basis spaces, parapharyngeal spaces and carotid spaces demonstrated no gross masses or fluid collections. Salivary glands demonstrated no sialolithiasis or enhancing lesion. Thyroid gland is not enlarged. There is no dominant nodule. The vessels are patent. There is mixed plaques in the proximal segments of the ICA, bilaterally. No enhancing lesion or fluid collections in the orbits. There is a pulmonary mosaic pattern. Spondylosis C4-5 and C5-6 level. Mucosal thickening, ethmoid air cells. Tympanic cavities and mastoid cells are aerated. CT/CT soft tissue neck w IV con IMPRESSION: Tonsillar abscesses/phlegmon and associated reactive bilateral cervical lymphadenopathy resulting in obstruction of the oropharynx nasopharynx. Electronically signed by: Baron Franks MD 07/04/2024 10:00 AM EDT RP Prescription Management I considered prescription management with: Pain Medication and Antibiotic Critical Care Time Critical Care Time Critical Care Time: Yes Total Critical Care Time: 60 Attestation: Taking care of the patient arranging transfer. Discharge Plan Discharge Clinical Impression: Tonsillar abscess Patient Disposition: [facility] Transfer Details: [facility] at [address] RN TO RN: [phone] Prescriptions: No Action atorvastatin 20 mg tablet 20 mg PO BEDTIME 90 Days Qty: 90 1RF (DME) blood pressure monitor Kit See Rx Instructions .Route Qty: 1 0RF Rx Instructions: As directed lisinopril 30 mg tablet 30 mg PO DAILY 30 Days Qty: 30 4RF tadalafil 5 mg tablet 5 mg PO DAILY 90 Days Qty: 90 1RF Rx Instructions: Take daily [facility] Group [facility] [address] [id number] tadalafil 20 mg tablet 20 mg PO ONCE PRN (Reason: sexual activity) 30 Days Qty: 30 1RF Rx Instructions: On demand medication take 60 minutes before intended activity [facility] Group [facility] [address] [id number] (DME) FreeStyle Connie 3 Plus Sensor Device See Rx Instructions .ROUTE .MEDSUPPLY Qty: 2 11RF Rx Instructions: as directed every 15 days insulin glargine-yfgn [Semglee(insulin glarg-yfgn)Pen] 100 unit/mL (3 mL) insulin pen 20 unit subcut QPM 30 Days Qty: 6 11RF insulin lispro [Humalog KwikPen Insulin] 100 unit/mL insulin pen 8 unit subcut DAILY 30 Days Qty: 6 11RF Rx Instructions: with supper (DME) pen needle, diabetic 32 gauge x 5/32 needle See Rx Instructions .ROUTE .MEDSUPPLY Qty: 200 3RF Rx Instructions: bid Referrals: Linda Smith MD [Primary Care Provider] - Interventions: Acute Care Transfer Worksheet (ED) Last Done: 07/04/24 14:32 Discharge Date/Time: 07/04/24 14:28 Print Language: Yoruba
[2024-07-04] MEDS: 0.9 % Sodium Chloride 1,000 ML 999 ML IVCONT (08:16)
--- OUTSIDE RECORDS SUMMARY | 2024-07-04 08:16 | XMS_ITS | Clinical Summary ---
Author Organization [facility] Address [address] [place] [address] Care Team Providers Care Air Turning Machine Feeder Name Role Phone Unavailable Primary Care Provider [...] Vaccine (2023-2 5 season) 2023 Influenza Vaccine (Season Ended) 2024 HIB Vaccines Aged Out No longer eligi [...] age to complete this topic Meningococcal B Vaccine Aged Out No l onger eligible based on patient's age to complete [...]
[2024-07-04 08:20] LABS: MANUAL DIFF FLAG NO
[2024-07-04] MEDS: dexAMETHasone sod phosphate 10 MG/ML VIAL IVPUSH (08:20)
[2024-07-04] MEDS: Ketorolac Tromethamine 15 MG/ML VIAL IVPUSH (08:20)
[2024-07-04 08:21] LABS: Basophils Percent Auto 0.2 % (0-2); Eosinophils Percent Auto 0.2 % (0-4); Hematocrit 41.8 % (42.0-52.0); Hemoglobin 14.4 g/dl (14.0-18.0); Imm Gran Abs Auto 0.07 X10*3/uL (0.00-0.03); Imm Gran Pct Auto 0.4 % (0.0-0.4); Lymphocytes Absolute Auto 0.8 X10*3/uL (1.2-4.9); Lymphocytes Percent Auto 4.7 % (20-40); Mean Corpuscular HGB Conc 34.4 g/dl (31.0-36.0); Mean Corpuscular Hemoglobin 29.4 pg (27.0-33.0); Mean Corpuscular Volume 85.3 fL (80.0-98.0); Monocytes Absolute Auto 1.3 X10*3/uL (0.1-1.2); Monocytes Percent Auto 7.7 % (2-11); Neutrophils Absolute Auto 14.2 x10*3/uL (2.0-8.3); Neutrophils Percent Auto 86.8 % (45-73); Platelet Count 207 X10*3/uL (160-400); Red Cell Distribution Width 12.7 % (11.0-16.0); White Blood Count 16.4 X10*3/uL (4.8-10.8)
[2024-07-04 08:30] LABS: IDNOW Serial# 58CA691E; Strep A Nucleic Acid Positive (Negative)
[2024-07-04 08:36] LABS: Alanine Aminotransferase 26 U/L (0-40); Alkaline Phosphatase 107 U/L (39-117); Anion Gap 12 (12-20); Aspartate Amino Transferase 22 U/L (5-37); Bilirubin Total 0.9 mg/dL (0.0-1.0); Blood Urea Nitrogen 15 mg/dL (9-16); Calcium 8.9 mg/dL (8.4-10.2); Carbon Dioxide 26 mmol/L (22-29); Chloride 99 mmol/L (96-108); Creatinine Clr Calc Pharmacy 160.5; Estimated Glomerular Filt Rate > 60; Glucose Random 337 mg/dL (60-115); Potassium 4.2 mmol/L (3.3-5.1); Sodium 133 mmol/L (135-145); Total Protein 7.4 g/dL (6.5-8.0)
[2024-07-04 09:04] LABS: Monotest Negative (Negative)
[2024-07-04] MEDS: Ampicillin Sodium/Sulbactam Na 3 GM in 0.9 % Sodium Chloride 100 ML IV (09:26)
[2024-07-04] MEDS: iohexoL 350 MG/ML 75 ML INFUS..BTL 60 ML IV (09:43)
--- NOTE | 2024-07-04 13:12 | PC.NURSE ---
attempted to call Nissa for nurse to nurse - no answer at this time
[2024-07-04] MEDS: 0.9 % Sodium Chloride 1,000 ML 100 ML IVCONT (13:58)
== END 2024-07-04 14:28 | disposition short-term general hospital (02) ==
PROVIDERS: Emergency Provider Emergency Medicine; PCP Internal Medicine
DX: J36 Peritonsillar abscess (principal); R06.02 Shortness of breath; M79.10 Myalgia, unspecified site; Z79.899 Other long term (current) drug therapy; Z87.891 Personal history of nicotine dependence
CPT/HCPCS: 36415; 70491; 80053; 85025; 86308; 87040; 87651; 96361; 96365; 96375; 99285; J0295; J1100; J1885; Q9967

== ENCOUNTER → 2024-07-04 08:01 | Outpatient (BNV) | payer OTHER, SELFPAY | PROVIDERS: Emergency Provider Emergency Medicine; PCP Internal Medicine; Visit Provider Radiology Diagnostic Radiology | DX: J36 Peritonsillar abscess (principal) | CPT/HCPCS: 70491 ==

== ENCOUNTER 2024-07-17 11:55 | Inpatient (IN) | payer OTHER, SELFPAY ==
--- NOTE | ~2024-07-17 | XR_ITS ---
CLINICAL HISTORY: dyspnea Exam: AP portable chest x-ray. Comparison: CT of the abdomen July 17, 2024. Findings: Lungs are well inflated. Cardiac silhouette is within normal limits. No focal areas of consolidation. No pleural effusion or pneumothorax. Impression: No acute findings. This document has been electronically signed by: Mian Rowan MD on 07/18/2024 04:09:24
--- NOTE | ~2024-07-17 | CT_ITS ---
CLINICAL HISTORY: rectal bleeding, diffuse abdominal pain CT abdomen and pelvis with and without contrast Comparison: None Findings: No arterial phase images obtained. The visualized portions of the lungs are normal in appearance. The liver is normal in size without suspicious focal hepatic lesions. No intrahepatic or extrahepatic ductal dilatation is seen. The hepatic and portal veins are patent. Cholecystectomy. Pancreas, spleen and adrenals are normal in appearance. No suspicious focal lesion of the kidneys. Right renal cyst. No hydronephrosis or calculi. The abdominal aorta demonstrates no evidence of aneurysmal dilatation or dissection. There is diffuse wall thickening of the colon. No evidence of bowel obstruction. Appendix is normal. The pelvic organs are within normal limits. No intraperitoneal free air or fluid is visualized. No pathologic lymphadenopathy is seen. Degenerative changes of the lumbar spine. Lumbar spinal fusion. IMPRESSION: Diffuse wall thickening of the colon concerning for pancolitis. Correlation with colonoscopy findings as indicated. This document has been electronically signed by: Rob Sorensen MD on 07/17/2024 19:20:40
[2024-07-17 12:12] VITALS: BP 143/87; PULSE 120; RESP 19; TEMP 36.6; O2SAT 98; BMI 40.7
--- NOTE | 2024-07-17 12:23 | ED.GENADULT ---
HPI - General Adult General Chief complaint: General Medical Stated complaint: rectal bleeding Time Seen by Provider: 07/17/24 16:36 Source: patient and RN notes reviewed Mode of arrival: ambulatory Limitations: no limitations History of Present Illness ED Provider: Sierra Logan PA-C HPI narrative: This is a 43-year-old male, with a history of diabetes, HALI on CPAP, HSV, hypertension, and hyperlipidemia, who presents emergency department with concerns for lower abdominal pain. Patient reports that last night at 7:00 p.m. he had consumed mangu, which contained fried meats and cheeses. He states that maximally an hour and a half later you developed abdominal cramping, and diarrhea. He states that he had approximately 5 episodes of diarrhea overnight. He states that this afternoon at 11:00 a.m. he had an episode of bright red blood per rectum. He states that it fill the toilet. He states that since then he has had 4 other episodes of this. He denies history of similar symptoms in the past. Denies any sick contacts. He does report that he recently finished a course of antibiotics for strep with a peritonsillar abscess, recent hospital admission to [facility] last week for multiple days for this. Denies any fevers, he does endorse chills. No chest pain or shortness for breath. No vomiting. No urinary symptoms. No other complaints or concerns at this time. MD complaint: Abdominal pain, rectal bleeding Onset (ago): day(s) Location: abdomen Radiation: non-radiation Severity: moderate Quality: aching Pain Consistency: constant Relieving factors: none Exacerbating factors: none Associated symptoms: denies other symptoms Treatments prior to arrival: none Related Data Home Medications ?Medication ?Instructions ?Recorded ?Confirmed insulin glargine-yfgn 100 unit/mL 20 unit subcut BEDTIME 07/17/24 07/17/24 (3 mL) subcutaneous pen (Semglee (insulin glargine-yfgn) Pen) insulin lispro 100 unit/mL 10 unit subcut DAILY 07/17/24 07/17/24 subcutaneous pen (Humalog KwikPen (U-100) Insulin) multivitamin 1 tab PO DAILY 07/17/24 07/17/24 Previous Rx's ?Medication ?Instructions ?Recorded blood pressure monitor #1 ea 04/17/21 lisinopril 30 mg tablet 30 mg PO DAILY 30 days #30 tabs 05/09/24 atorvastatin 20 mg tablet 20 mg PO BEDTIME 90 days #90 tabs 05/10/24 FreeStyle Connie 3 Plus Sensor #2 ea 06/01/24 (blood-glucose sensor) pen needle, diabetic 32 gauge x #200 ea 06/01/24 Allergies Allergy/AdvReac Type Severity Reaction Status Date / Time No Known Allergies Allergy Verified 07/17/24 12:15 Review of Systems Review of Systems: Constitutional: No Weight loss, No Fever, No Chills, No Night Sweats, No Fatigue, No Malaise ENT/Mouth: No Hearing loss, No Ear Pain, No Nasal Congestion, No Sinus Pain, No Hoarseness, No sore throat, No Rhinorrhea, No Swallowing Difficulty Eyes: No Eye Pain, No Swelling, No Redness, No Foreign Body, No Discharge, No Vision Changes Cardiovascular: No Chest Pain, No SOB, No Dyspnea on Exertion, No Orthopnea, No Edema, No Palpitations Respiratory: No Cough, No Sputum, No Wheezing, No Smoke Exposure, No Dyspnea Gastrointestinal: + Nausea, No Vomiting, +Diarrhea, No Constipation, + Abdominal pain,+ Hematochezia, No Melena Genitourinary: No irregular bleeding, No Dysuria, No Urinary Frequency, No Hematuria, No Urinary Incontinence/retention, No Urgency, No Flank Pain, No Urinary Flow Changes, No Hesitancy Musculoskeletal: No joint pain, No Myalgias, No Joint Swelling Skin: No Skin Lesions, No rash Neuro: No Weakness, No Numbness, No Paresthesias, No Loss of Consciousness, No Dizziness, No Headache Psych: No Anxiety/Panic, No Depression, No SI/HI/AH/VH, No Social Issues, Heme/Lymph: No Bruising, No Bleeding,No Lymphadenopathy Endocrine: No Polyuria, No Polydipsia, No Temperature Intolerance Yes all other systems are reviewed and are negative Constitutional: Constitutional: Reports as per [facility] Past Medical History Medical History Erectile dysfunction associated with type 2 diabetes mellitus HSV-2 (herpes simplex virus 2) infection Severe obesity with body mass index (BMI) of 35.0 to 39.9 with comorbidity Essential hypertension Obese Essential hypertension Dyslipidemia Increased BMI Smoker IBS (irritable bowel syndrome) Diabetes mellitus HLAI on CPAP Chronic cholecystitis due to cholelithiasis with choledocholithiasis Acalculous cholecystitis Upper abdominal pain Gallstones Surgical History H/O colonoscopy Hx laparoscopic cholecystectomy (03/18/20) History of back surgery History of surgery Family History Family History Father Diabetes Mother Diabetes HTN (hypertension) Sister Diabetes Other Heart problem Social History Social History Housing: House Are you a primary animal care taker to a significant other at home: No Do you presently have visiting nurse or other home services: No Alcohol intake: current Alcohol intake frequency: holidays/special occasions only Alcohol type: beer Comment: medicated earlier, see MAR Patient Tobacco Use Status: Former Tobacco user Tobacco use type: Cigarette Years Smoked: 25 Smoked in Last 30 Days: Yes e-Cigarette/Vaping Use: Currently Using Second Hand Smoke Exposure: No Use of substances other than those prescribed or required for medical reasons: No Advance Directives: No Advance Directives Information Provided: Yes Do you have a plan to hurt others: No Plan service: No Current occupational status: employed Current occupational exposures/hazards: No Cognitive needs: No Hearing needs: No Vision needs: No Physical Exam ED Vital Signs: Vital Signs - 24 hr 07/17/24 12:12 07/17/24 16:00 07/17/24 19:02 Temperature 98 F 98.3 F 97.6 F Pulse Rate 120 H 108 H 94 Respiratory Rate 19 16 16 Blood Pressure 143/87 H 141/71 H 141/78 H Pulse Oximetry 98 96 95 Oxygen Delivery Method Room Air Room Air Room Air BMI result Body Mass Index 40.7 Const General: cooperative, comfortable and no acute distress Orientation/consciousness: patient oriented x3 Limitations: no limitations HENMT Head: Yes normal to inspection, Yes normocephalic and Yes atraumatic Ears: hearing grossly normal bilaterally General nose exam: Normal external nose present Face and sinus: Yes normal facial exam Mouth: Normal oral and palatal mucosa present, oropharynx normal and moist mucous membranes Throat: Yes posterior oropharynx normal Eyes General: appearance normal, both eyes and all related structures Eyelids: Yes eyelids normal Conjunctivae: conjunctivae normal Sclerae: sclerae normal Pupils: Equal, round and reactive pupils present EOM: EOMs intact bilaterally Neck Neck: Yes normal visual inspection, Yes full ROM and Yes no lymphadenopathy Lymphatic: no lymphadenopathy noted Chest Chest palpation & inspection: normal inspection of the chest Resp Effort & Inspection: normal respiratory effort and able to speak in complete sentences Auscultation: clear to auscultation bilaterally, no crackles, no rales, no rhonchi and no wheezes Cardio Rate: regular rate Rhythm: regular rhythm Heart sounds: S1 normal heart sound present and S2 normal heart sound present GI Other: Obese abdomen, with diffuse tenderness throughout, no rebound or guarding. Normoactive bowel sounds present in all 4 quadrants. Rectal examination performed with JULIA barrett present at all times. Patient has numerous large hemorrhoids circling rectum, nonthrombosed. With active bright red blood noted coming from the rectum with clots noted. Underwear saturated in blood. Skin General skin exam: no rashes or lesions noted Trauma: no lacerations or abrasions Wounds: no wounds Neuro General: patient oriented x3 and moves all extremities Cranial nerves: Yes Equal, round and reactive pupils present Extrem General: Yes normal to inspection Right upper extremity: normal to inspection Left upper extremity: normal to inspection Right lower extremity: normal to inspection Left lower extremity: normal to inspection Course Course Course Narrative: RME: 43-year-old male presents to ED for abdominal pain and then on his 4th bowel movement had rectal bleeding has not stopped. Patient states he bled through his pants. Patient states no recent trauma just bowel movements that were painful and then bleeding. Patient states maybe he might have hemorrhoids. Charge nurse made aware due to patient's bleeding 2 pads. Patient will be brought in wants to having been Medications Administered Generic Name Dose Route Start Last Admin Trade Name Freq PRN Reason Stop Dose Admin Insulin Glargine 15 unit 07/17/24 22:30 07/17/24 23:07 Insulin Glargine,Hum.Rec.Anlog 100 Unit/Ml 10 Ml Vial SUBCUT 15 unit BEDTIME AKILA Administration Insulin Human Lispro 0 unit 07/17/24 22:30 07/17/24 22:58 Insulin Lispro 100 Unit/Ml 3 Ml Vial SUBCUT Not Given QIDACHS [facility] Protocol Sodium Chloride 3 ml 07/18/24 00:00 07/18/24 00:00 0.9 % Sodium Chloride Flush 3 Ml Syringe IVFLUSH 3 ml QSHIFT AKILA Administration Discontinued Medications Generic Name Dose Route Start Last Admin Trade Name Sonal PRN Reason Stop Dose Admin Sodium Chloride 1,000 mls @ 999 mls/hr 07/17/24 17:03 07/17/24 19:50 Ns IVCONT 07/17/24 18:03 Infused .Q1H1M ONE Infusion Acetaminophen 1,000 mg in 100 mls @ 400 mls/hr 07/17/24 17:04 07/17/24 19:27 Ofirmev IV 07/17/24 17:18 Infused ONCE ONE Infusion Sodium Chloride 1,000 mls @ 999 mls/hr 07/17/24 18:46 07/18/24 00:01 Ns IVCONT 07/17/24 19:46 Infused .Q1H1M ONE Infusion Insulin Human Lispro 0 unit 07/17/24 21:30 07/17/24 22:03 Insulin Lispro 100 Unit/Ml 3 Ml Vial SUBCUT 6 unit Q6H [facility] Administration Protocol Iohexol 100 ml 07/17/24 18:13 07/17/24 18:13 Iohexol 350 Mg/Ml 100 Ml Infus..Btl IV 07/17/24 18:14 100 ml ONCE ONE Administration Ondansetron HCl 4 mg 07/17/24 17:04 07/17/24 18:26 Ondansetron Hcl 4 Mg/2 Ml Vial IVPUSH 07/17/24 17:05 4 mg ONCE ONE Administration Medical Decision Making Medical Decision Making [facility] Narrative: This is a 43-year-old male who presents emergency department with concerns for rectal bleeding which started today. On arrival today, patient is well-appearing, speaking full sentences under no acute distress. Patient states that he ate food that did not agree with him yesterday evening, and had diarrhea, multiple episodes and then it turned to bloody stool. Labs were obtained prior to my assessment, he has slight leukocytosis at 11.3k, chemistry revealing hyperglycemia at 432, BUN elevated at 20, no evidence of LAURA. Differential diagnoses include diverticulitis, diverticulosis, colitis, gastroenteritis, gastritis. Will medicate with IV fluids, Tylenol, and Zofran, given hyperglycemia, will obtain VBG and beta hydroxybutyrate. Will obtain CT the abdomen and pelvis to rule out any acute bleed or any acute process. 1929 - CT scan returns, revealing diffuse wall thickening of the colon concerning for roque colitis, rectal examination was performed, patient has multiple hemorrhoids, nonthrombosed surrounding the rectum with active bleeding coming from the rectum. Given 5 episodes of bloody stool with clots, I discussed this with my attending physician, Dr. Otto, recommends admission for observation. Transfer of care initiated. Differential Diagnosis Differential Diagnoses: The differential diagnosis associated with the presentation includes See above Consult Healthcare Provider Management of the patient was discussed with: Hospitalist Dr. Bardales Lab Data [facility] Lab Attestation statement: I reviewed the patient's lab results. See course comment and MDM 07/17/24 13:56 07/17/24 13:56 Labs: Lab Results 07/17/24 07/17/24 07/17/24 Range/Units 13:56 13:58 17:53 WBC 11.3 H (4.8-10.8) X10*3/uL RBC 4.85 (4.60-5.80) X10*6/uL Hgb 14.3 (14.0-18.0) g/dl Hct 41.1 L (42.0-52.0) % MCV 84.7 (80.0-98.0) fL MCH 29.5 (27.0-33.0) pg MCHC 34.8 (31.0-36.0) g/dl RDW 12.5 (11.0-16.0) % Plt Count 220 (160-400) X10*3/uL MPV 9.2 L (9.4-12.4) fL Immature Gran % (Auto) 0.4 (0.0-0.4) % Neut % (Auto) 79.1 H (45-73) % Lymph % (Auto) 13.4 L (20-40) % [place] % (Auto) 6.6 (2-11) % Eos % (Auto) 0.4 (0-4) % Baso % (Auto) 0.1 (0-2) % Lymph # (Auto) 1.5 (1.2-4.9) X10*3/uL [place] # (Auto) 0.8 (0.1-1.2) X10*3/uL Eos # (Auto) 0.0 (0.0-0.4) X10*3/uL Baso # (Auto) 0.0 (0.0-0.2) X10*3/uL Abs Immat Gran (auto) 0.04 H (0.00-0.03) X10*3/uL Absolute Neuts (auto) 9.0 H (2.0-8.3) x10*3/uL Absolute Nucleated RBC 0.000 (0.0-0.012) X10*3/uL Nucleated RBC % (auto) 0.0 (0.0-0.2) /100WBC PT 10.5 L (10.9-12.4) SEC INR 0.9 (0.9-1.1) APTT 30.2 (26.0-36.8) SEC VBG pH (7.32-7.43) VBG pCO2 mmHg VBG pO2 mmHg VBG HCO3 (22-26) mmol/L VBG O2 Saturation % VBG Base Excess mmol/L Sodium 135 (135-145) mmol/L Potassium 4.1 (3.3-5.1) mmol/L Chloride 102 (96-108) mmol/L Carbon Dioxide 23 (22-29) mmol/L Anion Gap 14 (12-20) BUN 20 H (9-16) mg/dL Creatinine 0.84 (0.5-1.4) mg/dL Estim Creat Clear Calc 158.6 Estimated GFR > 60 POC Glucose (60-115) mg/dL Random Glucose 432 H* (60-115) mg/dL Calcium 10.0 D (8.4-10.2) mg/dL Total Bilirubin 0.4 (0.0-1.0) mg/dL AST 15 (5-37) U/L ALT 31 (0-40) U/L Alkaline Phosphatase 74 (39-117) U/L Total Protein 7.6 (6.5-8.0) g/dL Albumin 3.9 (3.5-5.0) g/dL Lipase 43 (8-78) U/L Beta-Hydroxybutyrate 0.27 (0.02-0.27) mmol/L Procalcitonin 0.06 ng/mL 07/17/24 07/17/24 Range/Units 17:59 19:02 WBC (4.8-10.8) X10*3/uL RBC (4.60-5.80) X10*6/uL Hgb (14.0-18.0) g/dl Hct (42.0-52.0) % MCV (80.0-98.0) fL MCH (27.0-33.0) pg MCHC (31.0-36.0) g/dl RDW (11.0-16.0) % Plt Count (160-400) X10*3/uL MPV (9.4-12.4) fL Immature Gran % (Auto) (0.0-0.4) % Neut % (Auto) (45-73) % Lymph % (Auto) (20-40) % [place] % (Auto) (2-11) % Eos % (Auto) (0-4) % Baso % (Auto) (0-2) % Lymph # (Auto) (1.2-4.9) X10*3/uL [place] # (Auto) (0.1-1.2) X10*3/uL Eos # (Auto) (0.0-0.4) X10*3/uL Baso # (Auto) (0.0-0.2) X10*3/uL Abs Immat Gran (auto) (0.00-0.03) X10*3/uL Absolute Neuts (auto) (2.0-8.3) x10*3/uL Absolute Nucleated RBC (0.0-0.012) X10*3/uL Nucleated RBC % (auto) (0.0-0.2) /100WBC PT (10.9-12.4) SEC INR (0.9-1.1) APTT (26.0-36.8) SEC VBG pH 7.39 (7.32-7.43) VBG pCO2 44 mmHg VBG pO2 58 mmHg VBG HCO3 27 H (22-26) mmol/L VBG O2 Saturation 82.0 % VBG Base Excess 1.7 mmol/L Sodium (135-145) mmol/L Potassium (3.3-5.1) mmol/L Chloride (96-108) mmol/L Carbon Dioxide (22-29) mmol/L Anion Gap (12-20) BUN (9-16) mg/dL Creatinine (0.5-1.4) mg/dL Estim Creat Clear Calc Estimated GFR POC Glucose 327 H (60-115) mg/dL Random Glucose (60-115) mg/dL Calcium (8.4-10.2) mg/dL Total Bilirubin (0.0-1.0) mg/dL AST (5-37) U/L ALT (0-40) U/L Alkaline Phosphatase (39-117) U/L Total Protein (6.5-8.0) g/dL Albumin (3.5-5.0) g/dL Lipase (8-78) U/L Beta-Hydroxybutyrate (0.02-0.27) mmol/L Procalcitonin ng/mL Radiology Impression Discussion of test interpretation with radiology: I have reviewed the radiologist's reading. Radiologist Impression: Findings: No arterial phase images obtained. The visualized portions of the lungs are normal in appearance. The liver is normal in size without suspicious focal hepatic lesions. No intrahepatic or extrahepatic ductal dilatation is seen. The hepatic and portal veins are patent. Cholecystectomy. Pancreas, spleen and adrenals are normal in appearance. No suspicious focal lesion of the kidneys. Right renal cyst. No hydronephrosis or calculi. The abdominal aorta demonstrates no evidence of aneurysmal dilatation or dissection. There is diffuse wall thickening of the colon. No evidence of bowel obstruction. Appendix is normal. The pelvic organs are within normal limits. No intraperitoneal free air or fluid is visualized. No pathologic lymphadenopathy is seen. Degenerative changes of the lumbar spine. Lumbar spinal fusion. IMPRESSION: Diffuse wall thickening of the colon concerning for pancolitis. Correlation with colonoscopy findings as indicated. This document has been electronically signed by: Rob Sorensen MD on 07/17/2024 19:20:40 Dictated By: Rob Sorensen MD Critical Care Time Critical Care Time Critical Care Time: Yes Total Critical Care Time: 35 Attestation: I have personally provided critical care time exclusive of time spent on separately billable procedures. Time includes review of lab data, radiology results, discussion with consultants, and monitoring for potential decompensation. Intervention performed as documented. Discharge Plan Discharge Clinical Impression: Colitis Patient Disposition: Admitted As Inpatient
[2024-07-17 13:58] LABS: MANUAL DIFF FLAG NO
[2024-07-17 14:02] LABS: Basophils Percent Auto 0.1 % (0-2); Eosinophils Percent Auto 0.4 % (0-4); Hematocrit 41.1 % (42.0-52.0); Hemoglobin 14.3 g/dl (14.0-18.0); Imm Gran Abs Auto 0.04 X10*3/uL (0.00-0.03); Imm Gran Pct Auto 0.4 % (0.0-0.4); Lymphocytes Absolute Auto 1.5 X10*3/uL (1.2-4.9); Lymphocytes Percent Auto 13.4 % (20-40); Mean Corpuscular HGB Conc 34.8 g/dl (31.0-36.0); Mean Corpuscular Hemoglobin 29.5 pg (27.0-33.0); Mean Corpuscular Volume 84.7 fL (80.0-98.0); Mean Platelet Volume 9.2 fL (9.4-12.4); Monocytes Absolute Auto 0.8 X10*3/uL (0.1-1.2); Monocytes Percent Auto 6.6 % (2-11); Neutrophils Percent Auto 79.1 % (45-73); Platelet Count 220 X10*3/uL (160-400); Red Blood Count 4.85 X10*6/uL (4.60-5.80); Red Cell Distribution Width 12.5 % (11.0-16.0); White Blood Count 11.3 X10*3/uL (4.8-10.8)
[2024-07-17 14:07] LABS: INTERNATIONAL NORM RATIO 0.9 (0.9-1.1); Prothrombin Time 10.5 SEC (10.9-12.4)
[2024-07-17 14:10] LABS: Partial Thromboplastin Time 30.2 SEC (26.0-36.8)
[2024-07-17 14:22] LABS: Alanine Aminotransferase 31 U/L (0-40); Albumin Level 3.9 g/dL (3.5-5.0); Alkaline Phosphatase 74 U/L (39-117); Anion Gap 14 (12-20); Aspartate Amino Transferase 15 U/L (5-37); Bilirubin Total 0.4 mg/dL (0.0-1.0); Blood Urea Nitrogen 20 mg/dL (9-16); Carbon Dioxide 23 mmol/L (22-29); Chloride 102 mmol/L (96-108); Creatinine Clr Calc Pharmacy 158.6; Estimated Glomerular Filt Rate > 60; Glucose Random 432 mg/dL (60-115); Potassium 4.1 mmol/L (3.3-5.1); Sodium 135 mmol/L (135-145); Total Protein 7.6 g/dL (6.5-8.0)
--- OUTSIDE RECORDS SUMMARY | 2024-07-17 15:29 | XMS_ITS | Clinical Summary ---
Author Organization [facility] Address [address] [place] [address] Phone Care Team Providers Care Call Center Consultant Name Role Phone Physician, Pcp Unknown Primary Care Provider Barby vailable Encounters Date Type Department Care Team Description 07/04/2024 2:48 PM EDT - 07/04/2024 5:03 PM EDT Emergency [facility] Emergency [address] [place] [address] Discharge Disposition: Home or Self Care from Last 3 Months Social History Tobacco Use Types Packs/Day Years Used Date Smoking Tobacco: Never Assessed Sex and Gender Information Value Date Recorded Sex Assigned at Not on file Legal Sex Male 10:46 PM EST Gender Identity Not on file Sexual Orientation Not on file Last Filed Vital Signs Vital Sign Reading Time Taken Comments Blood Pressure 136/82 07/04/2024 3:55 PM EDT Pulse 103 07/04/2024 3:55 PM EDT Temperature 36.9 ??C (98.5 ??F) 07/04/2024 3:55 PM ED T Respiratory Rate 24 07/04/2024 3:55 PM EDT Oxygen Saturation 100% 07/04/2024 3:55 PM EDT Inhaled Oxygen Concentration - - Weight - - Height - - Body Mass Index - - Plan of Treatment Health Maintenance Due Date Last Done Comments COVID-19 Vaccine ( season) 2023 05/07/2021, 06/19/2020 Cholesterol Screening (Lipid Panel) 07/05/2024 Colorectal Cancer Screening: Colonoscopy 07/05/2024 Depression Screening 07/05/2024 HIV Screening 07/05/2024 Hepatitis C Screening 07/05/2024 Social Influencers of Health Screening 07/05/2024 Influenza Vaccine (Season Ended) 2024 01/06/2022, 12/13/2018, 01/12/2017, Additional history exists DTaP,Tdap,and Td Vaccines (4 - Td or Tdap) 05/09/2034 05/09/2024, 12/28/2011, 04/05/2006 Hepatitis A Vaccines Aged Out 05/10/2009, 05/11/19 07 No longer eligible based on patient's age to complete this topic Hepatitis B Vaccines Completed 12/28/2011, 05/10/2009, 05/11/2006 MMR Vaccines Aged Out 12/28/2011 No longer eligi ble based on patient's age to complete this topic HIB Vaccines Aged Out No longer eligi [...] age to complete this topic Pneumococcal Vaccine: Pediatrics (0 to 5 Years) and At-Risk Patients (6 to 64 Years) Aged Out No longer eligible based on patient's age to complete this topic RSV Immunization Patients Under 20 months Aged Out No longer eligible based on patient's age to complete this topic Varicella Vaccines Aged Out No longer eligible based on patient's age to complete this topic Procedures Procedure Name Priority Date/Time Associated Diagnosis Comments POCT GLUCOSE BLOOD Routine 07/04/2024 5: 27 PM EDT from Last 3 Months Results * (ABNORMAL) POCT Glucose, blood (07/04/2024 5:27 PM EDT) [facility] Glucose POCT 322(H) 70 - 100 mg/dL 07/04/2024 5:28 PM EDT [facility] ([facility]) [facility] Blood Capillary blood specimen / Unknown 07/04/2024 5:27 PM EDT 07/12/2024 3:20 PM EDT us Generic Provider Poct LAB POINT OF CARE TEST DOCKED DEVICE UNSOLICITED RESULTS Final Result SMITHA SALAZAR [place] ([facility] [address] [place] [address], from Last 3 Months Insurance [facility] Care Teams Call Center Consultant Relationship Specialty Start Date End Date Physician, Pcp Unknown PCP - General 07/04/24
[2024-07-17 16:00] VITALS: BP 141/71; PULSE 108; RESP 16; TEMP 36.8; O2SAT 96
--- NOTE | 2024-07-17 17:05 | ECG_ITS ---
Test Reason : TACHYCARDIA Blood Pressure : */* mmHG Vent. Rate : 101 BPM Atrial Rate : 101 BPM P-R Int : 140 ms QRS Dur : 90 ms QT Int : 338 ms P-R-T Axes : 54 44 8 degrees QTcB Int : 438 ms Sinus tachycardia Otherwise normal ECG When compared with ECG of 18-Mar-2021 14:03, No significant change was found Referred By: Sierra Logan Electronically Signed By: LACHELLE LEVI
[2024-07-17 17:22] LABS: Lipase 43 U/L (8-78)
[2024-07-17] MEDS: 0.9 % Sodium Chloride 1,000 ML 999 ML IVCONT ×2 (18:02→19:48)
[2024-07-17 18:04] LABS: VBG Base Excess 1.7 mmol/L; VBG HCO3 27 mmol/L (22-26); VBG pCO2 44 mmHg; VBG pH 7.39 (7.32-7.43); VBG pO2 58 mmHg
[2024-07-17 18:05] LABS: Venous Blood Gas Refer to POC result
[2024-07-17] MEDS: iohexoL 350 MG/ML 100 ML INFUS..BTL IV (18:13)
[2024-07-17 18:22] LABS: Beta-Hydroxybutyrate 0.27 mmol/L (0.02-0.27)
[2024-07-17] MEDS: Acetaminophen 1,000 MG/100 ML PIGGYBACK 400 MG IV (18:25)
[2024-07-17] MEDS: ondansetron HCL 4 MG/2 ML VIAL IVPUSH (18:26)
[2024-07-17 19:02] VITALS: BP 141/78; PULSE 94; RESP 16; TEMP 36.4; O2SAT 95
[2024-07-17 19:07] LABS: Glucose, Whole Blood 327 mg/dL (60-115)
[2024-07-17 20:00] VITALS: BP 140/81; PULSE 87; RESP 18; TEMP 36.8; O2SAT 96
--- NOTE | 2024-07-17 21:21 | P.HPHOSP_ITS ---
History of Present Illness Date of Service: 07/17/24 Chief Complaint: blood in stool This is a 43-year-old male with pertinent history of insulin-dependent diabetes mellitus, hypertension, mixed hyperlipidemia, HALI on CPAP who presents to the emergency department for evaluation of blood in stool. Patient states he ate mangu last night which contains mashed plantains, salami and eggs. 2 hours after his dinner he started having generalized abdominal discomfort and he had 4 episodes of nonbloody diarrhea overnight. Patient went to work today and had 1 bite of bagel on the day of presentation. He had about 6 episodes of bloody bowel movement with abdominal cramps. No history of similar symptoms in the past. No sick contacts. Patient states he was recently admitted at [place] and receive antibiotics for peritonsillar abscess. Denies nausea, vomiting, fever, chills, chest pain, palpitations, shortness for breath, changes in urinary habits. In the emergency department, stool occult blood positive and serum glucose found to be 432 Review of Systems 2 Constitutional: Constitutional: Reports fatigue, Reports malaise and Reports poor appetite Cardiovascular: Cardiovascular: Reports no additional cardiovascular complaints Respiratory: Respiratory: Reports no additional respiratory complaints Gastrointestinal: Gastrointestinal: Reports abdominal pain and Reports hematochezia Genitourinary: Genitourinary: Reports no additional male genitourinary complaints Endocrine: Endocrine: Reports fatigue [facility] Medical History Erectile dysfunction associated with type 2 diabetes mellitus HSV-2 (herpes simplex virus 2) infection Severe obesity with body mass index (BMI) of 35.0 to 39.9 with comorbidity Essential hypertension Obese Essential hypertension Dyslipidemia Increased BMI Smoker IBS (irritable bowel syndrome) Diabetes mellitus HALI on CPAP Chronic cholecystitis due to cholelithiasis with choledocholithiasis Acalculous cholecystitis Upper abdominal pain Gallstones Family History Father Diabetes Mother Diabetes HTN (hypertension) Sister Diabetes Other Heart problem Surgical History H/O colonoscopy Hx laparoscopic cholecystectomy (03/18/20) History of back surgery History of surgery Social History Housing: House Are you a primary home care specialist to a significant other at home: No Do you presently have visiting nurse or other home services: No Alcohol intake: current Alcohol intake frequency: holidays/special occasions only Alcohol type: beer Comment: medicated earlier, see MAR Patient Tobacco Use Status: Former Tobacco user Tobacco use type: Cigarette Years Smoked: 25 Smoked in Last 30 Days: Yes e-Cigarette/Vaping Use: Currently Using Second Hand Smoke Exposure: No Use of substances other than those prescribed or required for medical reasons: No Advance Directives: No Advance Directives Information Provided: Yes Do you have a plan to hurt others: No Plan service: No Current occupational status: employed Current occupational exposures/hazards: No Cognitive needs: No Hearing needs: No Vision needs: No Meds Allergies Allergy/AdvReac Type Severity Reaction Status Date / Time No Known Allergies Allergy Verified 07/17/24 12:15 Home Medications ?Medication ?Instructions ?Recorded ?Confirmed ?Last Taken ?Type insulin glargine-yfgn 100 unit/mL 20 unit subcut BEDTIME 07/17/24 07/17/24 07/16/24 History (3 mL) subcutaneous pen (Semglee (insulin glargine-yfgn) Pen) insulin lispro 100 unit/mL 10 unit subcut DAILY 07/17/24 07/17/24 07/17/24 History subcutaneous pen (Humalog KwikPen (U-100) Insulin) multivitamin 1 tab PO DAILY 07/17/24 07/17/24 07/16/24 History Physical Exam 2 Vital Signs and Narrative: Vital Signs: Last Vital Signs Temp 98.3 F 07/17/24 20:00 Pulse 87 07/17/24 20:00 Resp 18 07/17/24 20:00 BP 140/81 H 07/17/24 20:00 Pulse Ox 96 07/17/24 20:00 O2 Del Method Room Air 07/17/24 20:00 BMI result Body Mass Index 40.7 Middle-aged male lying in bed in no distress Neck supple, no JVD Regular rate and rhythm, S1-S2 heard Regular breath sounds bilaterally, no wheezing or crackles appreciated Abdomen with diffuse tenderness, no guarding, no rigidity Patient is awake, alert and oriented to self, place, time and person ; no focal motor deficit Psych: Normal mood No pedal edema Results Labs 07/17/24 13:56 07/17/24 13:56 Labs: Laboratory Results - last 24 hr 07/17/24 07/17/24 07/17/24 13:56 17:53 17:59 MCV 84.7 MCH 29.5 MCHC 34.8 RDW 12.5 Plt Count 220 MPV 9.2 L Immature Gran % (Auto) 0.4 Neut % (Auto) 79.1 H Lymph % (Auto) 13.4 L [place] % (Auto) 6.6 Eos % (Auto) 0.4 Baso % (Auto) 0.1 Lymph # (Auto) 1.5 [place] # (Auto) 0.8 Eos # (Auto) 0.0 Baso # (Auto) 0.0 Abs Immat Gran (auto) 0.04 H Absolute Neuts (auto) 9.0 H Absolute Nucleated RBC 0.000 Nucleated RBC % (auto) 0.0 PT 10.5 L INR 0.9 APTT 30.2 VBG pH 7.39 VBG pCO2 44 VBG pO2 58 VBG HCO3 27 H VBG O2 Saturation 82.0 VBG Base Excess 1.7 Anion Gap 14 Estim Creat Clear Calc 158.6 Estimated GFR > 60 POC Glucose Random Glucose 432 H* Calcium 10.0 D Total Bilirubin 0.4 AST 15 ALT 31 Alkaline Phosphatase 74 Total Protein 7.6 Albumin 3.9 Lipase 43 Beta-Hydroxybutyrate 0.27 07/17/24 19:02 MCV MCH MCHC RDW Plt Count MPV Immature Gran % (Auto) Neut % (Auto) Lymph % (Auto) [place] % (Auto) Eos % (Auto) Baso % (Auto) Lymph # (Auto) [place] # (Auto) Eos # (Auto) Baso # (Auto) Abs Immat Gran (auto) Absolute Neuts (auto) Absolute Nucleated RBC Nucleated RBC % (auto) PT INR APTT VBG pH VBG pCO2 VBG pO2 VBG HCO3 VBG O2 Saturation VBG Base Excess Anion Gap Estim Creat Clear Calc Estimated GFR POC Glucose 327 H Random Glucose Calcium Total Bilirubin AST ALT Alkaline Phosphatase Total Protein Albumin Lipase Beta-Hydroxybutyrate Assessment and Plan (1) Colitis: Status: Acute Plan This is a 43-year-old male with pertinent history of insulin-dependent diabetes mellitus, hypertension, mixed hyperlipidemia, HALI on CPAP who presents to the emergency department for evaluation of blood in stool. #. Acute colitis with intractable bloody diarrhea: Will admit patient with cardiac monitoring. Resuscitated with IV crystalloids. Clear liquid diet and advance as tolerated. GI panel and C diff pending. Consulted Gastroenterology, appreciate assistance #. Insulin-dependent diabetes mellitus with hyperglycemia: Initiating basal plus insulin regimen #. Hypertension: Hold home antihypertensives in the setting of intractable bloody diarrhea #. Hyperlipidemia: On statin #. Obesity class 3: Counseled regarding diet and exercise #. HALI: Continue CPAP at bedtime Med rec pending DVT prophylaxis: Mechanical Full code Admit as inpatient and will require two night minimum hospital stay for monitoring of H&H, hemodynamic monitoring, evaluation and management of acute colitis (as above), which is not possible in a lesser acute setting. Gastroenterology consult pending Quality Stroke Does the patient have a stroke diagnosis?: No VTE Prior VTE?: No VTE Risk Level:: Medical - moderate - high VTE Device Contraindication: N/A - Device Ordered VTE Drug Contraindication: Treatment Not Tolerated
[2024-07-17 21:51] LABS: OBS Int Ctl Valid YES; OBS1 POSITIVE (NEGATIVE)
[2024-07-17 22:00] LABS: Procalcitonin 0.06 ng/mL
[2024-07-17] MEDS: Insulin Lispro 100 UNIT/ML 3 ML VIAL SUBCUT (22:03)
--- NOTE | 2024-07-17 22:13 | PHA.MEDREC ---
Addendum entered by Chito Lo RP 07/17/24 22:21: MED REC CHECKED BY [facility] Original Note: Pharmacy Consult ? Medication Reconciliation Pharmacy has completed the medication reconciliation. Spoke with patient and he confirmed his medicates. Patient confirmed he is no longer taking the Tadalafil 5mg or 20mg tab anymore stating he didn't like taking it. Patient confirmed the Insulin Lispro 10 units in the morning and Insulin Glargine-yfgn 20 units at bedtime.
[2024-07-17 22:27] LABS: Glucose, Whole Blood 272 mg/dL (60-115)
[2024-07-17] MEDS: Insulin Glargine,Hum.rec.anlog 100 UNIT/ML 10 ML VIAL 15 UNIT SUBCUT (23:07)
[2024-07-17 23:18] LABS: CDiff Gene PCR NEGATIVE (Negative)
[2024-07-17 23:33] VITALS: BP 131/83; PULSE 86; RESP 23; TEMP 36.9; O2SAT 96
--- NOTE | 2024-07-18 01:31 | PC.NURSE ---
Resp was called around 2200 to put patient on CPAP patient refused. Resp and I watched O2 drop while patient was sleeping so Oxymask was placed. Patient oxygen just dropped to 65% was able to wake patient up and oxgyen came up to 96%. patient educated on the importance of wearing CPAP and stated he would try again.
[2024-07-18 01:40] VITALS: PULSE 84; RESP 16; O2SAT 98
--- NOTE | 2024-07-18 01:54 | PC.NURSE ---
Resp placed CPAP however patient called less than 5 minutes requesting to remove CPAP, patient educated on importance of the CPAP and told patient we could medicate for anxiety but still declined. oxymask replaced at this time
--- NOTE | 2024-07-18 03:44 | PC.NURSE ---
patient having more frequent episodes of dypnea O2 sats dropping to 65 and needed more stimulation to rise. Spoke with Enrico Herrera at bedside and labs ordered. Plan to try medication to help ease anxiety over wearing CPAP
[2024-07-18] MEDS: Morphine Sulfate 2 MG/ML CARTRIDGE IVPUSH (03:55)
[2024-07-18 03:56] VITALS: BP 128/79; PULSE 87; RESP 22; TEMP 37.1; O2SAT 97
[2024-07-18 04:13] VITALS: PULSE 84; RESP 22; O2SAT 97
[2024-07-18 04:22] LABS: MANUAL DIFF FLAG NO
[2024-07-18 04:23] LABS: B Type Natriuretic Peptide 11 pg/mL (<100)
[2024-07-18 04:25] LABS: Basophils Percent Auto 0.2 % (0-2); Eosinophils Absolute Auto 0.1 X10*3/uL (0.0-0.4); Eosinophils Percent Auto 1.3 % (0-4); Hematocrit 38.7 % (42.0-52.0); Hemoglobin 13.1 g/dl (14.0-18.0); Imm Gran Abs Auto 0.01 X10*3/uL (0.00-0.03); Imm Gran Pct Auto 0.1 % (0.0-0.4); Lymphocytes Absolute Auto 1.8 X10*3/uL (1.2-4.9); Lymphocytes Percent Auto 21.7 % (20-40); Mean Corpuscular HGB Conc 33.9 g/dl (31.0-36.0); Mean Corpuscular Hemoglobin 29.1 pg (27.0-33.0); Mean Platelet Volume 9.3 fL (9.4-12.4); Monocytes Absolute Auto 0.8 X10*3/uL (0.1-1.2); Monocytes Percent Auto 9.9 % (2-11); Neutrophils Absolute Auto 5.5 x10*3/uL (2.0-8.3); Neutrophils Percent Auto 66.8 % (45-73); Platelet Count 191 X10*3/uL (160-400); Red Cell Distribution Width 12.6 % (11.0-16.0); White Blood Count 8.2 X10*3/uL (4.8-10.8)
[2024-07-18 04:38] LABS: Anion Gap 12 (12-20); Blood Urea Nitrogen 18 mg/dL (9-16); Calcium 8.7 mg/dL (8.4-10.2); Carbon Dioxide 24 mmol/L (22-29); Chloride 105 mmol/L (96-108); Creatinine Clr Calc Pharmacy 201.8; Estimated Glomerular Filt Rate > 60; Glucose Random 283 mg/dL (60-115); Potassium 3.8 mmol/L (3.3-5.1); Sodium 137 mmol/L (135-145)
[2024-07-18 07:05] VITALS: BP 130/78; PULSE 89; RESP 19; O2SAT 96
[2024-07-18 07:15] LABS: Glucose, Whole Blood 276 mg/dL (60-115)
[2024-07-18] MEDS: Insulin Lispro 100 UNIT/ML 3 ML VIAL SUBCUT (08:10)
[2024-07-18] MEDS: 0.9 % Sodium Chloride Flush 3 ML SYRINGE IVFLUSH ×2 (08:12)
--- NOTE | 2024-07-18 08:12 | PC.NURSE ---
ambulatory to BR. no SOB> denies active bleeding and rectal pain at this time. NAD. Awaits bed assignment.
--- NOTE | 2024-07-18 08:24 | P.CNGI_ITS ---
History of Present Illness Data of Consult Service Date: 07/18/24 Requesting physician: Elliott Bardales Primary Care Provider: Linda Boyer MD HPI Reason for consult: Acute diarrheal illness PMFSH Past Medical History Medical History Erectile dysfunction associated with type 2 diabetes mellitus HSV-2 (herpes simplex virus 2) infection Severe obesity with body mass index (BMI) of 35.0 to 39.9 with comorbidity Essential hypertension Obese Essential hypertension Dyslipidemia Increased BMI Smoker IBS (irritable bowel syndrome) Diabetes mellitus HALI on CPAP Chronic cholecystitis due to cholelithiasis with choledocholithiasis Acalculous cholecystitis Upper abdominal pain Gallstones Family History Family History Father Diabetes Mother Diabetes HTN (hypertension) Sister Diabetes Other Heart problem Surgical History Surgical History H/O colonoscopy Hx laparoscopic cholecystectomy (03/18/20) History of back surgery History of surgery Social History Social History Housing: House Are you a primary career development manager to a significant other at home: No Do you presently have visiting nurse or other home services: No Alcohol intake: current Alcohol intake frequency: holidays/special occasions only Alcohol type: beer Comment: medicated earlier, see MAR Patient Tobacco Use Status: Former Tobacco user Tobacco use type: Cigarette Years Smoked: 25 Smoked in Last 30 Days: Yes e-Cigarette/Vaping Use: Currently Using Second Hand Smoke Exposure: No Use of substances other than those prescribed or required for medical reasons: No Advance Directives: No Advance Directives Information Provided: Yes Do you have a plan to hurt others: No Plan service: No Current occupational status: employed Current occupational exposures/hazards: No Cognitive needs: No Hearing needs: No Vision needs: No Meds Allergies Allergy/AdvReac Type Severity Reaction Status Date / Time No Known Allergies Allergy Verified 07/17/24 12:15 Active Medications: Current Medications Acetaminophen (Acetaminophen 325 Mg Tablet) 650 mg PO Q6H PRN PRN Reason: Pain, Mild 1-3,fever,headache Calcium Carbonate (Calcium Carbonate 750 Mg Tab.Chew) 750 mg PO Q4H PRN PRN Reason: Heartburn Dextrose (Dextrose 50 % 25 Gm/50 Ml Syringe) 25 gm IVPUSH Q15M PRN; Protocol PRN Reason: per Hypoglycemia Standing Ord. Glucose (Glucose Gel 15 Gm Gel..Gram.) 15 gm PO Q15M PRN; Protocol PRN Reason: per Hypoglycemia Standing Ord. Insulin Glargine (Insulin Glargine,Hum.Rec.Anlog 100 Unit/Ml 10 Ml Vial) 15 unit SUBCUT BEDTIME [facility] Last Admin: 07/17/24 23:07 Dose: 15 unit Insulin Human Lispro (Insulin Lispro 100 Unit/Ml 3 Ml Vial) 0 unit SUBCUT QIDACHS [facility]; Protocol Last Admin: 07/18/24 08:10 Dose: 6 unit Magnesium Hydroxide (Milk Of Magnesia 30 Ml Oral.Susp) 30 ml PO DAILY PRN PRN Reason: Constipation Melatonin (Melatonin 3 Mg Tablet) 6 mg PO BEDTIME PRN PRN Reason: Insomnia Ondansetron HCl (Ondansetron Hcl 4 Mg/2 Ml Vial) 4 mg IVPUSH Q8H PRN PRN Reason: Nausea and Vomiting Sodium Chloride (0.9 % Sodium Chloride Flush 3 Ml Syringe) 3 ml IVFLUSH QSHIFT [facility] Last Admin: 07/18/24 08:12 Dose: 3 ml Home Medications ?Medication ?Instructions ?Recorded ?Confirmed ?Last Taken ?Type insulin glargine-yfgn 100 unit/mL 20 unit subcut BEDTIME 07/17/24 07/17/24 07/16/24 History (3 mL) subcutaneous pen (Semglee (insulin glargine-yfgn) Pen) insulin lispro 100 unit/mL 10 unit subcut DAILY 07/17/24 07/17/24 07/17/24 History subcutaneous pen (Humalog KwikPen (U-100) Insulin) multivitamin 1 tab PO DAILY 07/17/24 07/17/24 07/16/24 History Physical Exam 2 Vital Signs: Vital Signs: Last Vital Signs Temp 98.8 F 07/18/24 03:56 Pulse 89 07/18/24 07:05 Resp 19 07/18/24 07:05 BP 130/78 07/18/24 07:05 Pulse Ox 96 07/18/24 07:05 O2 Del Method CPAP 07/18/24 07:05 O2 Flow Rate 10 07/18/24 03:56 BMI result Body Mass Index 40.7 Results Labs 07/18/24 03:45 07/18/24 03:45 Labs: Short CBC 07/17/24 07/18/24 Range/Units 13:56 03:45 WBC 11.3 H 8.2 (4.8-10.8) X10*3/uL Hgb 14.3 13.1 L (14.0-18.0) g/dl Hct 41.1 L 38.7 L (42.0-52.0) % Plt Count 220 191 (160-400) X10*3/uL BMP 07/17/24 07/18/24 13:56 03:45 Sodium 135 137 Potassium 4.1 3.8 Chloride 102 105 Carbon Dioxide 23 24 BUN 20 H 18 H Creatinine 0.84 0.66 Calcium 10.0 D 8.7 D Liver Function 07/17/24 Range/Units 13:56 Total Bilirubin 0.4 (0.0-1.0) mg/dL AST 15 (5-37) U/L ALT 31 (0-40) U/L Alkaline Phosphatase 74 (39-117) U/L Albumin 3.9 (3.5-5.0) g/dL Procedures Date of Service Date of Service: 07/18/24
[2024-07-18 10:22] LABS: Adenovirus F 40/41 Not Detected (Not Detect.); Astrovirus Not Detected (Not Detect.); Campylobacter Not Detected (Not Detect.); Cryptosporidium Not Detected (Not Detect.); Cyclospora cayetanensis Not Detected (Not Detect.); E. coli EAEC Not Detected (Not Detect.); E. coli EPEC Not Detected (Not Detect.); E. coli ETEC Not Detected (Not Detect.); E. coli STEC Not Detected (Not Detect.); Entamoeba histolytica Not Detected (Not Detect.); Giardia lamblia Not Detected (Not Detect.); Norovirus GI/GII Not Detected (Not Detect.); Plesiomonas shigelloides Not Detected (Not Detect.); Rotavirus A Not Detected (Not Detect.); Salmonella Not Detected (Not Detect.); Sapovirus Not Detected (Not Detect.); Shigella sp./EIEC Not Detected (Not Detect.); Vibrio Not Detected (Not Detect.); Vibrio Cholerae Not Detected (Not Detect.); Yersinia enterocolitica Not Detected (Not Detect.)
[2024-07-18 10:43] VITALS: BP 135/68; PULSE 90; RESP 18; TEMP 36.9; O2SAT 94
--- NOTE | 2024-07-18 11:48 | P.DS_ITS ---
DS: Providers Provider Date of Service: 07/18/24 Date of admission: 07/17/24 19:43 Date of discharge: 07/18/24 Primary care physician: Linda Boyer MD Consults: 07/17/24 21:21 Consult to Gastroenterology Routine Consulting Provider: James Hazel Reason for consultation: colitis DS: Diagnosis Discharge Diagnosis (1) Colitis: Status: Acute DS: Summary Hospital Course Hospital Course: from initial hpi: 43-year-old male with pertinent history of insulin-dependent diabetes mellitus, hypertension, mixed hyperlipidemia, HALI on CPAP who presents to the emergency d [facility] for evaluation of blood in stool. Patient states he ate mangu last night which contains mashed plantains, salami and eggs. 2 hours after his dinner he started having generalized abdominal discomfort and he had 4 episodes of nonbloody diarrhea overnight. Patient went to work today and had 1 bite of bagel on the day of presentation. He had about 6 episodes of bloody bowel movement with abdominal cramps. No history of similar symptoms in the past. No sick contacts. Patient states he was recently admitted at [facility] and receive antibiotics for peritonsillar abscess. Denies nausea, vomiting, fever, chills, chest pain, palpitations, shortness for breath, changes in urinary habits. In the emergency department, stool occult blood positive and serum glucose found to be 432 hospital course: Patient was admitted with acute colitis. Was given supportive care, PCR was negative for C diff and other stool pathogens. Symptoms resolved. will follow up outpatient with Gastroenterology. Blood in stool likely due to hemorrhoids found on last colonoscopy should follow up with General surgery, avoid straining. For diabetes with hyperglycemia was treated with basal bolus insulin and sugars improved. For hypertension BP meds were held due to dehydration. For hyperlipidemia continued on statin. For morbid obesity weight loss recommended. For HALI should use CPAP at night. Patient is feeling better will be discharged home. Time Attestation Discharge Coordination Time (in mins): 34 Quality: Safe Use of Opioids Does Pt have an Active Cancer Diagnosis on the Problem List?: No Quality: Stroke Does the patient have a stroke diagnosis?: No Physical Exam Vital Signs: Vital Signs: Last Vital Signs Temp 98.4 F 07/18/24 10:43 Pulse 90 07/18/24 10:43 Resp 18 07/18/24 10:43 BP 135/68 05/06/25 10:43 Pulse Ox 94 07/18/24 10:43 O2 Del Method Room Air 07/18/24 10:43 O2 Flow Rate 10 07/18/24 03:56 BMI result Body Mass Index 40.7 General: AO X 3, no acute distress Resp: CTA bilateral, no accessory muscles used CVS: S1,S2,RRR GI: soft, non tender, non distended Neuro: motor grossly intact, alert Psych: appropriate affect, appropriate insight DS: Data Data Completed and Pending Labs on day of discharge: Laboratory Results - last 24 hr 07/17/24 07/17/24 07/17/24 13:56 13:58 17:53 WBC 11.3 H RBC 4.85 Hgb 14.3 Hct 41.1 L MCV 84.7 MCH 29.5 MCHC 34.8 RDW 12.5 Plt Count 220 MPV 9.2 L Immature Gran % (Auto) 0.4 Neut % (Auto) 79.1 H Lymph % (Auto) 13.4 L [place] % (Auto) 6.6 Eos % (Auto) 0.4 Baso % (Auto) 0.1 Lymph # (Auto) 1.5 [place] # (Auto) 0.8 Eos # (Auto) 0.0 Baso # (Auto) 0.0 Abs Immat Gran (auto) 0.04 H Absolute Neuts (auto) 9.0 H Absolute Nucleated RBC 0.000 Nucleated RBC % (auto) 0.0 PT 10.5 L INR 0.9 APTT 30.2 VBG pH VBG pCO2 VBG pO2 VBG HCO3 VBG O2 Saturation VBG Base Excess Sodium 135 Potassium 4.1 Chloride 102 Carbon Dioxide 23 Anion Gap 14 BUN 20 H Creatinine 0.84 Estim Creat Clear Calc 158.6 Estimated GFR > 60 POC Glucose Random Glucose 432 H* Calcium 10.0 D Total Bilirubin 0.4 AST 15 ALT 31 Alkaline Phosphatase 74 B-Natriuretic Peptide Total Protein 7.6 Albumin 3.9 Lipase 43 Beta-Hydroxybutyrate 0.27 Procalcitonin 0.06 Stool Occult Blood Stl C. cayetanensis PCR Stool Rotavirus A PCR Stl Adenov F 40/41 PCR Stool Astrovirus (PCR) Stool Campylobacter PCR Stool Cryptosporidium PCR Stl Sh Tox Pr E STEC PCR Stool E coli O157 PCR Stl Enterotoxigenic E PCR Stool EPEC (PCR) Stool EAEC (PCR) Stl E. histolytica PCR Stool Giardia Lamblia PCR Stl P. shigelloides PCR Stool Salmonella PCR Stool Sapovirus (PCR) Stl Shigella/EIEC PCR St Y.enterocolitica PCR Stool Vibrio (PCR) Stl Vibrio cholerae PCR Stl Norovirus GI/GII PCR C. difficile Tox B Gene 07/17/24 07/17/24 07/17/24 17:59 19:02 21:36 WBC RBC Hgb Hct MCV MCH MCHC RDW Plt Count MPV Immature Gran % (Auto) Neut % (Auto) Lymph % (Auto) [place] % (Auto) Eos % (Auto) Baso % (Auto) Lymph # (Auto) [place] # (Auto) Eos # (Auto) Baso # (Auto) Abs Immat Gran (auto) Absolute Neuts (auto) Absolute Nucleated RBC Nucleated RBC % (auto) PT INR APTT VBG pH 7.39 VBG pCO2 44 VBG pO2 58 VBG HCO3 27 H VBG O2 Saturation 82.0 VBG Base Excess 1.7 Sodium Potassium Chloride Carbon Dioxide Anion Gap BUN Creatinine Estim Creat Clear Calc Estimated GFR POC Glucose 327 H Random Glucose Calcium Total Bilirubin AST ALT Alkaline Phosphatase B-Natriuretic Peptide Total Protein Albumin Lipase Beta-Hydroxybutyrate Procalcitonin Stool Occult Blood POSITIVE Stl C. cayetanensis PCR Not Detected Stool Rotavirus A PCR Not Detected Stl Adenov F 40/41 PCR Not Detected Stool Astrovirus (PCR) Not Detected Stool Campylobacter PCR Not Detected Stool Cryptosporidium PCR Not Detected Stl Sh Tox Pr E STEC PCR Not Detected Stool E coli O157 PCR Not applicable Stl Enterotoxigenic E PCR Not Detected Stool EPEC (PCR) Not Detected Stool EAEC (PCR) Not Detected Stl E. histolytica PCR Not Detected Stool Giardia Lamblia PCR Not Detected Stl P. shigelloides PCR Not Detected Stool Salmonella PCR Not Detected Stool Sapovirus (PCR) Not Detected Stl Shigella/EIEC PCR Not Detected St Y.enterocolitica PCR Not Detected Stool Vibrio (PCR) Not Detected Stl Vibrio cholerae PCR Not Detected Stl Norovirus GI/GII PCR Not Detected C. difficile Tox B Gene NEGATIVE 07/17/24 07/18/24 07/18/24 21:44 03:45 07:04 WBC 8.2 RBC 4.50 L Hgb 13.1 L Hct 38.7 L MCV 86.0 MCH 29.1 MCHC 33.9 RDW 12.6 Plt Count 191 MPV 9.3 L Immature Gran % (Auto) 0.1 Neut % (Auto) 66.8 Lymph % (Auto) 21.7 [place] % (Auto) 9.9 Eos % (Auto) 1.3 Baso % (Auto) 0.2 Lymph # (Auto) 1.8 [place] # (Auto) 0.8 Eos # (Auto) 0.1 Baso # (Auto) 0.0 Abs Immat Gran (auto) 0.01 Absolute Neuts (auto) 5.5 Absolute Nucleated RBC 0.000 Nucleated RBC % (auto) 0.0 PT INR APTT VBG pH VBG pCO2 VBG pO2 VBG HCO3 VBG O2 Saturation VBG Base Excess Sodium 137 Potassium 3.8 Chloride 105 Carbon Dioxide 24 Anion Gap 12 BUN 18 H Creatinine 0.66 Estim Creat Clear Calc 201.8 Estimated GFR > 60 POC Glucose 272 H 276 H Random Glucose 283 H Calcium 8.7 D Total Bilirubin AST ALT Alkaline Phosphatase B-Natriuretic Peptide 11 Total Protein Albumin Lipase Beta-Hydroxybutyrate Procalcitonin Stool Occult Blood Stl C. cayetanensis PCR Stool Rotavirus A PCR Stl Adenov F 40/41 PCR Stool Astrovirus (PCR) Stool Campylobacter PCR Stool Cryptosporidium PCR Stl Sh Tox Pr E STEC PCR Stool E coli O157 PCR Stl Enterotoxigenic E PCR Stool EPEC (PCR) Stool EAEC (PCR) Stl E. histolytica PCR Stool Giardia Lamblia PCR Stl P. shigelloides PCR Stool Salmonella PCR Stool Sapovirus (PCR) Stl Shigella/EIEC PCR St Y.enterocolitica PCR Stool Vibrio (PCR) Stl Vibrio cholerae PCR Stl Norovirus GI/GII PCR C. difficile Tox B Gene Discharge Plan Discharge Anticipated Discharge Date/Time: 07/18/24 11:46 Patient Disposition: Home, Self-Care Discharge Diagnosis: colitis Referrals: James Hazel MD [Physician] - 1 Week (colitis) Quan Ventura MD [Physician] - 1 Week (hemorrhoid's ) Linda Smith MD [Primary Care Provider] - 1 Week Discharge Medications: Continued atorvastatin 20 mg tablet 20 mg PO BEDTIME 90 Days Qty: 90 1RF insulin lispro [Humalog KwikPen Insulin] 100 unit/mL insulin pen 10 unit subcut DAILY insulin glargine-yfgn [Semglee(insulin glarg-yfgn)Pen] 100 unit/mL (3 mL) insulin pen 20 unit subcut BEDTIME multivitamin Tablet 1 tab PO DAILY (DME) blood pressure monitor Kit See Rx Instructions .Route Qty: 1 0RF Rx Instructions: As directed lisinopril 30 mg tablet 30 mg PO DAILY 30 Days Qty: 30 4RF (DME) FreeStyle Connie 3 Plus Sensor Device See Rx Instructions .ROUTE .MEDSUPPLY Qty: 2 11RF Rx Instructions: as directed every 15 days (DME) pen needle, diabetic 32 gauge x 5/32 needle See Rx Instructions .ROUTE .MEDSUPPLY Qty: 200 3RF Rx Instructions: bid Discharge Orders: Discharge Order (Routine); Ordered 07/18/24 Ordered By: Isaias Santos Diet: Advance to usual diet Activity on Discharge: As tolerated Stand Alone Forms: Patient Portal Discharge page Print Language: Sammarinese Care Plan Goals: Recovery Health Concerns: Colitis, hemorrhoids Plan of Treatment: Follow up with Gastroenterology and surgery Assessment: See above
--- NOTE | 2024-07-18 11:57 | MHC.CM.PN ---
Patient has been medically cleared for dc to home today, self care.
[2024-07-18 12:19] VITALS: BP 121/85; PULSE 76; RESP 20; TEMP 37; O2SAT 94
== END 2024-07-18 12:15 | disposition home or self-care (01) | DRG 392 ==
LOC: HO.ED 19:47 → HO.EDOVER 19:55
PROVIDERS: Physician Assistant; Physician Assistant Medical; Admitting Provider Student in an Organized Health Care Education/Training Program; Emergency Provider Emergency Medicine Emergency Medical Services; PCP Internal Medicine; Visit Provider Internal Medicine
DX: K52.9 Noninfective gastroenteritis and colitis, unspecified (principal); Z68.41 Body mass index [BMI] 40.0-44.9, adult; G47.33 Obstructive sleep apnea (adult) (pediatric); E78.2 Mixed hyperlipidemia; K64.9 Unspecified hemorrhoids; E11.65 Type 2 diabetes mellitus with hyperglycemia; I10 Essential (primary) hypertension; E66.813 Obesity, class 3; Z71.3 Dietary counseling and surveillance; Z79.4 Long term (current) use of insulin; Z79.899 Other long term (current) drug therapy
CPT/HCPCS: 36415; 71045; 74178; 80048; 80053; 82010; 82272; 82803; 82947; 83690; 83880; 84145; 85025; 85610; 85730; 87493; 87507; 93005; 94660; 99285; J0131; J2270; J2405; Q9967

== ENCOUNTER → 2024-07-17 17:04 | Outpatient (BNV) | payer OTHER, SELFPAY | PROVIDERS: Admitting Provider Student in an Organized Health Care Education/Training Program; Emergency Provider Emergency Medicine Emergency Medical Services; PCP Internal Medicine; Visit Provider Nuclear Medicine | DX: K63.89 Other specified diseases of intestine (principal) | CPT/HCPCS: 74178 ==

== ENCOUNTER → 2024-07-17 17:05 | Outpatient (BNV) | payer OTHER, SELFPAY | PROVIDERS: Admitting Provider Student in an Organized Health Care Education/Training Program; Emergency Provider Emergency Medicine Emergency Medical Services; PCP Internal Medicine; Visit Provider Internal Medicine | DX: R00.0 Tachycardia, unspecified (principal) | CPT/HCPCS: 93010 ==

== ENCOUNTER 2024-07-17 19:43 | Outpatient (BNV) | payer OTHER, SELFPAY | END 2024-07-18 03:34 | PROVIDERS: Admitting Provider Student in an Organized Health Care Education/Training Program; Emergency Provider Emergency Medicine Emergency Medical Services; PCP Internal Medicine; Visit Provider Radiology Diagnostic Radiology | DX: R06.00 Dyspnea, unspecified (principal) | CPT/HCPCS: 71045 ==

== ENCOUNTER → 2024-07-17 19:43 | Outpatient (BNV) | payer OTHER, SELFPAY | PROVIDERS: Admitting Provider Student in an Organized Health Care Education/Training Program; Emergency Provider Emergency Medicine Emergency Medical Services; PCP Internal Medicine; Visit Provider Student in an Organized Health Care Education/Training Program | DX: K52.9 Noninfective gastroenteritis and colitis, unspecified (principal) | CPT/HCPCS: 99222; 99239 ==

== ENCOUNTER 2024-08-04 15:26 | Outpatient (AMB) | payer OTHER, SELFPAY ==
--- NOTE | 2024-08-04 12:37 | A.OFFVIS_ITS ---
Vital Signs 08/04/24 15:30 Height 6 ft Weight 315 lb 4.176 oz BMI 42.8 BP 130/78 Blood Pressure Location Rt brachial Position Sitting Pulse 102 H Pulse Source Pulse Oximeter Pulse Oximetry (%) 98 Oxygen Delivery Method Room Air Intake Visit Reasons: T2DM Intake Note: Patient presents today to establish treatment for Type 2 Diabetes Mellitus: Last Diabetic eye exam was on: 02/01/2024, [facility] Last Podiatry exam was on: Patient does not see a Mortgage Collector Most recent HbA1c: 11.7%, 08/04/2024 Random Glucose- 344 mg/dL, Today Tobacco Stripping Machine Operator Required: No Accompanied by: Self / Same As Patient Allergies No Known Allergies Allergy (Verified 08/04/24 15:31) HPI Comments Details: [age] YO male who is seen in f/u for DM. He was seen as an initial consult 06/01/2024 and started on Semglee 20 units and 8 units of a short-acting insulin with the supper. Most recent A1c 05/09 12.3% Initially diagnosed with T2DM 2002 Was initially started on treatment with metformin self discontinued upset stomach most of the time diarrhea Has not been on GLp-1 agonist, jardiance hadn't started used glipizide in the past ineffective Was on insulin in the past not sure what type of insulin Off all medications for one and a half years due to cost. Gladis was sent to his pharmacy but was told it was not covered by his insurance. Current regimen: no medication Has not been checking his sugars Reports low sugars: no history of lows A1C 05/09/2024 12.3%, 10/2022 12.4% Family history of T2DM: Mother father and sibling Has diabetic retinopathy getting monthly injections. Last appt several months ago has laser treatment scheduled next week. Has some neuropathy: numbness/tingling Denies nephropathy, 07/14/2024 eGFR>60 Has HLD, on statin recently started. Last LDL 127 2021 Denies CAD. Diet: trys to balance but has difficulty with this Gets some exercise PFSH Medical History Erectile dysfunction associated with type 2 diabetes mellitus HSV-2 (herpes simplex virus 2) infection Severe obesity with body mass index (BMI) of 35.0 to 39.9 with comorbidity Essential hypertension Obese Essential hypertension Dyslipidemia Increased BMI Smoker IBS (irritable bowel syndrome) Diabetes mellitus HALI on CPAP Chronic cholecystitis due to cholelithiasis with choledocholithiasis Acalculous cholecystitis Upper abdominal pain Gallstones Surgical History H/O colonoscopy Hx laparoscopic cholecystectomy (03/18/20) History of back surgery History of surgery Family History Father Diabetes Mother Diabetes HTN (hypertension) Sister Diabetes Other Heart problem Social History Housing: House Are you a primary summer child caregiver to a significant other at home: No Do you presently have visiting nurse or other home services: No Alcohol intake: current Alcohol intake frequency: holidays/special occasions only Alcohol type: beer Comment: medicated earlier, see MAR Patient Tobacco Use Status: Former Tobacco user Tobacco use type: Cigarette Years Smoked: 25 e-Cigarette/Vaping Use: Currently Using Second Hand Smoke Exposure: No service: No Current occupational status: employed Current occupational exposures/hazards: No Cognitive needs: No Hearing needs: No Vision needs: No Physical Exam Vital Signs: Last Vital Signs Pulse 102 H 08/04/24 15:30 BP 130/78 08/04/24 15:30 Pulse Ox 98 08/04/24 15:30 Oxygen Delivery Method Room Air 08/04/24 15:30 BMI result Body Mass Index 42.8 Results AMB Hemoglobin A1c AMB Hemoglobin A1c 11.7 % Last Edit by MANJIT Cárdenas on 08/04/24 15:5 2 Results Reviewed Results Reviewed: Laboratory Last Values Glucose (Clinic) 344 mg/dL (60-115) H 08/04/24 15:40 Hgb A1c (Clinic) 11.7 % (4.0-6.0) H 08/04/24 15:51 Assessment & Plan Assessment & Plan Orders: Orders AMB Hemoglobin A1c Today E11.69 - Type 2 diabetes mellitus with other specified complication, N52.1 - Erectile dysfunction due to diseases classified elsewhere Coding
[2024-08-04 15:30] VITALS: BP 130/78; PULSE 102; O2SAT 98; BMI 42.8
[2024-08-04 15:46] LABS: Glucose, Whole Blood 344 mg/dL (60-115)
== END 2024-08-04 16:05 | disposition home or self-care (01) ==
LOC: HO.ENCR 15:27
PROVIDERS: PCP Internal Medicine; Visit Provider Nurse Practitioner Adult Health
DX: E11.69 Type 2 diabetes mellitus with other specified complication (principal); N52.1 Erectile dysfunction due to diseases classified elsewhere

== ENCOUNTER → 2024-08-04 15:26 | Outpatient (BNVA) | payer OTHER, SELFPAY | PROVIDERS: PCP Internal Medicine; Visit Provider Nurse Practitioner Adult Health | DX: Z01.818 Encounter for other preprocedural examination (principal); Z13.1 Encounter for screening for diabetes mellitus | CPT/HCPCS: 82947; 83036 ==

== ENCOUNTER 2024-08-04 16:13 | Outpatient (AMB) | payer OTHER, SELFPAY ==
--- NOTE | 2024-08-04 16:19 | MHC.OFFVIS ---
Vital Signs 08/04/24 16:20 Height 6 ft Weight 315 lb BMI 42.7 BP 130/70 Blood Pressure Location Lt brachial Position Sitting Pulse 84 Pulse Oximetry (%) 96 Oxygen Delivery Method Room Air Intake Visit Reasons: pre colonoscopy, Hemorrhoids Intake Note: Patient follow up for pre colonoscopy, eldon was 06/16/2022 for abdominal bloating. Patient cc: gassy on and off, abdominal pain on and off, swallowing difficulty couples of weeks ago and hemorrhoids on and off, Denies any other GI issues. Orthodontist Vice President Required: No Accompanied by: Self / Same As Patient Allergies No Known Allergies Allergy (Verified 08/04/24 16:18) HPI HPI pre colonoscopy, Hemorrhoids: Details: Assessment & Plan (1) Post-cholecystectomy syndrome: Code(s): K91.5 - Postcholecystectomy syndrome Plan: CITIZ[place] #he prefers to speak Marshallese The procedure should be repeated in 2 years. The procedure was well tolerated. The results were explained and the patient is agreeable to the follow-up interval as stated. The bowel pattern has returned to normal. Education was provided to tell any 1st degree relatives about their findings to be sure that they are screened by age 45. Educated that they will be put on a recall list when it is time for their repeat scope but should they move out of state or away from the hospital they will need to remember along with their primary to repeat the procedure in a timely fashion to avoid any adverse complications. He continues on carafate (1-2 a day), creon and simethicone. ROV 6 mos. (2) Abdominal bloating: Code(s): R14.0 - Abdominal distension (gaseous) (3) Hemorrhoids: Code(s): K64.9 - Unspecified hemorrhoids LABS: CT ABDOMEN AND PELVIS IMPRESSION: Diffuse wall thickening of the colon concerning for pancolitis. Correlation with colonoscopy findings as indicated. This document has been electronically signed by: Rob Sorensen MD on 07/17/2024 19:20:40 Laboratory Tests 07/18/24 03:45 WBC 8.2 Hgb 13.1 L Hct 38.7 L MCV 86.0 MCH 29.1 Plt Count 191 Estimated GFR > 60 TODAY'S VISIT CITIZEN [place] #renee Patient has been lost to follow-up since 06/2022, apparently in July he had an acute hospitalization for ?colitis. ? At this time he was seen as an inpatient by Dr. Hair. He says that he was d/c'ed with dx of gastroenteritis. He has recovered well. In the past he was on Carafate, Creon, and simethicone. He no longer is taking these as he has discovered he can manage by avoiding fats. His last colonoscopy was in 2020 and it needed to be repeated in 2 years due to insufficient prep. He has HALI and no documented cardiac problems. There are no prior problems with anesthesia or sedation. There are no infectious disease problems, except HSV. He does not know of any FHX of crc or polyps. [facility] Medical History (Updated 08/04/24 @ 16:36 by LAURA Lopes) Phimosis Balanitis Physical exam Hematochezia Increased BMI Epidermal inclusion cyst IBS (irritable bowel syndrome) HSV-2 (herpes simplex virus 2) infection Screening for hypothyroidism Encounter for follow-up surveillance of colon cancer Erectile dysfunction associated with type 2 diabetes mellitus Severe obesity with body mass index (BMI) of 35.0 to 39.9 with comorbidity Essential hypertension Obese Essential hypertension Dyslipidemia Smoker Diabetes mellitus HALI on CPAP Chronic cholecystitis due to cholelithiasis with choledocholithiasis Acalculous cholecystitis Upper abdominal pain Gallstones Surgical History (Updated 08/04/24 @ 16:36 by LAURA Lopes) Back abscess Hx laparoscopic cholecystectomy (03/18/20) Status post incision and drainage H/O colonoscopy History of back surgery History of surgery Family History Father Diabetes Mother Diabetes HTN (hypertension) Sister Diabetes Other Heart problem Social History Housing: House Are you a primary home health care case manager to a significant other at home: No Do you presently have visiting nurse or other home services: No Alcohol intake: current Alcohol intake frequency: holidays/special occasions only Alcohol type: beer Comment: medicated earlier, see MAR Patient Tobacco Use Status: Former Tobacco user Tobacco use type: Cigarette Years Smoked: 25 e-Cigarette/Vaping Use: Currently Using Second Hand Smoke Exposure: No service: No Current occupational status: employed Current occupational exposures/hazards: No Cognitive needs: No Hearing needs: No Vision needs: No Review of Systems Const Denies fatigue, Denies fever(s), Denies night sweats, Denies poor appetite and Denies weight loss ENT Reports Normal hearing present, Denies dental pain, Denies dysphagia, Denies hearing loss, Denies mouth pain, Denies odynophagia, Denies throat swelling, Denies tongue swelling and Reports other (Dentition adequate) Card Reports no additional complaints Resp Reports no additional complaints GI Details: Denies abdominal pain, Denies melena, Reports bloating, Denies hematochezia, Denies constipation, Denies GI cramping, Denies dysphagia, Denies excessive flatus, Denies early satiety, Denies heartburn, Denies diarrhea, Reports loose stools, Denies nausea, Denies odynophagia, Denies vomiting and Denies hematemesis Skin/Breast Denies pruritus, Denies lesions, Denies rash and Denies jaundice Neuro Reports Normal hearing present and Denies Abnormal speech present Endo Denies fatigue Aller/Immun Denies throat swelling and Denies tongue swelling Physical Exam Vital Signs: Last Vital Signs Pulse 84 08/04/24 16:20 BP 130/70 08/04/24 16:20 Pulse Ox 96 08/04/24 16:20 Oxygen Delivery Method Room Air 08/04/24 16:20 BMI result Body Mass Index 42.7 Const General: cooperative, no acute distress, well developed and well groomed Nutritional Appearance: well nourished and obese morbidly obese Orientation/consciousness: oriented to person, oriented to place and oriented to time Limitations: No language barrier HEENT Head: Yes normocephalic and Yes atraumatic Eyes General: appearance normal, both eyes and all related structures Pupils: Equal, round and reactive pupils present Neck Neck: Yes normal visual inspection and Yes no lymphadenopathy Thyroid: Thyroid normal Resp Effort & Inspection: normal respiratory effort and able to speak in complete sentences Auscultation: clear to auscultation bilaterally Cardio Rate: regular rate Rhythm: regular rhythm Heart sounds: Normal, physiologic split S2 sound present Peripheral pulses: radial pulses present and posterior tibial pulses present GI Inspection: No distended, Yes Abdominal panniculus present and Yes obesity Palpation (GI): Soft to palpation, nontender, no guarding, not rigid and No hepatosplenomegaly present Percussion: Yes normal to percussion Auscultation: normal bowel sounds Rectal Exam - Male: Yes deferred Abdomen image: 1. surgical scars 2. Skin General skin exam: no rashes or lesions noted, turgor normal, skin not dry, no jaundice, No spider nevi and no striae Rashes: no rashes Nails: normal Neuro General: oriented to person, oriented to place and oriented to time Cranial nerves: Yes Equal, round and reactive pupils present and Yes Normal hearing present Speech: No Abnormal speech present Extrem General: Yes normal to inspection, No clubbing, No cyanosis and No edema Psych Appearance: grossly normal and well kempt Mental Status: mental status grossly normal Speech and movement: Normal speech and movement present Affect: normal affect Attitude: cooperative Thought process: Circumstantial thought process present and not confabulating Thought content: Normal thought content present Insight: Limited insight present (Psych) Judgement: Limited judgement present (Psych) Results AMB Hemoglobin A1c AMB Hemoglobin A1c 11.7 % Last Edit by MANJIT Cárdenas on 08/04/24 15:52 Assessment & Plan Assessment & Plan (1) Pre-op examination: Code(s): Z01.818 - Encounter for other preprocedural examination Category: Medical Plan CITIZ[place] #.declines Patient has been lost to follow-up since 06/2022, apparently in July he had an acute hospitalization for ?colitis. ? At this time he was seen as an inpatient by Dr. Hair. He says that he was d/c'ed with dx of gastroenteritis. He has recovered well. In the past he was on Carafate, Creon, and simethicone. He no longer is taking these as he has discovered he can manage by avoiding fats. His last colonoscopy was in 2020 and it needed to be repeated in 2 years due to insufficient prep. He has HALI and no documented cardiac problems. There are no prior problems with anesthesia or sedation. There are no infectious disease problems, except HSV. He does not know of any FHX of crc or polyps. Orders: Orders Colonoscopy - GI Use Only 08/04/24 Z01.818 - Encounter for other preprocedural examination Comprehensive Met. Panel 08/04/24 Z01.818 - Encounter for other preprocedural examination Medications: New peg 3350-electrolytes 236-22.74-6.74 -5.86 gram (Golytely) until fecal effluent is clear; do not exceed a total volume of 2,000 mL 240 mL PO Q10M 4,000 mL 0RF 1 day Z12.11 - Encounter for screening for malignant neoplasm of colon bisacodyl (Dulcolax (bisacodyl)) Take 2 tablets every night starting 3 days before the colonoscopy date 10 mg (2 x 5 mg) PO BEDTIME 8 tabs 0RF 2 days Coding Level of Care Code Est Pt Level 4 (13880) Diagnoses Pre-op examination Z01.818 Time Spent (min) 38
[2024-08-04 16:20] VITALS: BP 130/70; PULSE 84; O2SAT 96; BMI 42.7
== END 2024-08-04 16:46 | disposition home or self-care (01) ==
LOC: HO.HGI 16:13
PROVIDERS: PCP Internal Medicine; Visit Provider Nurse Practitioner
DX: Z01.818 Encounter for other preprocedural examination (principal); Z12.11 Encounter for screening for malignant neoplasm of colon
CPT/HCPCS: 99213

== ENCOUNTER 2024-09-12 16:28 | Outpatient (AMB) | payer OTHER, SELFPAY ==
--- OUTSIDE RECORDS SUMMARY | 2024-09-12 16:31 | XMS_ITS | Clinical Summary ---
Author Organization [facility] Address [address] [place] [address] Phone Care Team Providers Care Size Worker Name Role Phone Physician, Pcp Unknown Primary Care Provider Barby vailable Encounters Date Type Department Care Team Description 07/04/2024 2:48 PM EDT - 07/04/2024 5:03 PM EDT Emergency [facility] Emergency [address] [place] [address] Discharge Disposition: Home or Self [...] 103 07/04/2024 3:55 PM EDT Temperature 36.9 C (98.5 F) 07/04/2024 3:55 PM EDT Respiratory Rate 24 07/04/2024 3:55 PM EDT [...] POCT Glucose, blood (07/04/2024 5:27 PM EDT) [facility] Glucose POCT 322(H) 70 - 100 mg/dL 07/04/2024 5:28 PM EDT [facility] Blood Capillary blood specimen / Unknown 07/04/2024 5:27 PM EDT 07/12/2024 3:20 PM EDT us Generic Provider Poct LAB POINT OF CARE TEST DOCKED DEVICE UNSOLICITED RESULTS Final Result [facility] [address] [place] [address], from Last 3 Months Insurance [facility] Care Teams Size Worker Relationship Specialty Start Date End Date Physician, Pcp Unknown PCP - General 07/04/24
--- NOTE | 2024-09-12 16:34 | MHC.PC.OV ---
Vital Signs 09/12/24 16:36 Height 6 ft Weight 315 lb BMI 42.7 BP 128/80 Blood Pressure Location Lt brachial Position Sitting Intake Visit Reasons: dm Intake Note: Patient here for a follow up DM, sleep study request, weight management referral Manager Product Required: No Accompanied by: Self / Same As Patient Allergies No Known Allergies Allergy (Verified 09/12/24 17:00) Medication List - Last Reconciled 09/12/24 by Linda Boyer MD atorvastatin 20 mg PO BEDTIME 90 days blood pressure monitor As directed clotrimazole-betamethasone 1-0.05 % 1 appl topical BID 4 weeks FreeStyle Connie 3 Plus Sensor (blood-glucose sensor) as directed every 15 days NS insulin glargine-yfgn (Semglee (insulin glargine-yfgn) Pen) 34 units (0.34 mL) subcut QPM 30 days insulin lispro 16 units (0.16 mL) subcut BID 30 days lisinopril 30 mg PO DAILY 30 days multivitamin 1 tab PO DAILY peg 3350-electrolytes 236-22.74-6.74 -5.86 gram (Golytely) 240 mL PO Q10M 1 day pen needle, diabetic bid NS Tobacco use date assessed: 05/09/24 Dental Screening Dental Screen Date: 05/09/24 HPI HPI Comments History of Present Illness Details The patient is a 43-year-old male presenting with Type 2 Diabetes Mellitus. His last hemoglobin A1c was 11.7, indicating poor glycemic control. He reports blood glucose levels of 352 mg/dL upon waking, which he manages with insulin injections before meals and at night. The patient is also managing hyperlipidemia with atorvastatin 20 mg. He has been advised to maintain his LDL cholesterol below 70 mg/dL, but recent laboratory results are pending. Hypertension is controlled with lisinopril 30 mg daily, and his blood pressure readings are reportedly stable. The patient has morbid obesity with a BMI of 42.7. He is considering weight management options, including potential treatment with medications like Ozempic or Mounjaro. [facility] Medical History (Updated 09/12/24 @ 17:06 by Linda Boyer MD) Phimosis Balanitis Physical exam Hematochezia Increased BMI Epidermal inclusion cyst IBS (irritable bowel syndrome) HSV-2 (herpes simplex virus 2) infection Screening for hypothyroidism Encounter for follow-up surveillance of colon cancer Erectile dysfunction associated with type 2 diabetes mellitus Severe obesity with body mass index (BMI) of 35.0 to 39.9 with comorbidity Essential hypertension Obese Essential hypertension Dyslipidemia Smoker Diabetes mellitus HALI on CPAP Chronic cholecystitis due to cholelithiasis with choledocholithiasis Acalculous cholecystitis Upper abdominal pain Gallstones Surgical History Back abscess Hx laparoscopic cholecystectomy (03/18/20) Status post incision and drainage H/O colonoscopy History of back surgery History of surgery Family History Father Diabetes Mother Diabetes HTN (hypertension) Sister Diabetes Other Heart problem Social History Housing: House Are you a primary acute care clinical nurse specialist to a significant other at home: No Do you presently have visiting nurse or other home services: No Alcohol intake: current Alcohol intake frequency: holidays/special occasions only Alcohol type: beer Comment: medicated earlier, see MAR Patient Tobacco Use Status: Former Tobacco user Tobacco use type: Cigarette Years Smoked: 25 e-Cigarette/Vaping Use: Currently Using Second Hand Smoke Exposure: No service: No Current occupational status: employed Current occupational exposures/hazards: No Cognitive needs: No Hearing needs: No Vision needs: No Questionnaire Thrive Questionnaire Date Thrive assessed: 09/12/24 I am a: Patient What is your living situation today?: I have a steady place to live Within the past 12 months, did the food you bought not last and you didn't have the money to get more?: I choose not to answer this question Within the past 12 months, did you worry whether your food would run out before you got money to buy more?: I choose not to answer this question Do you have trouble paying for medicines?: I choose not to answer this question Do you have trouble getting transportation to medical appointments?: I choose not to answer this question Do you have trouble paying your heating and electricity bill?: I choose not to answer this question Do you have trouble taking care of your child, family member or friend?: I choose not to answer this question Do you have trouble with day-to-day activities such as bathing, preparing meals, shopping, managing finances, etc.?: I choose not to answer this question Are you currently unemployed and looking for a job?: I choose not to answer this question Are you interested in more education?: I choose not to answer this question Please select the resources that you would like help with: None Currently or been in a relationship where the following occur: I choose not to answer THRIVE Score: 0 AUDIT C Alcohol Use Questionnaire (AUDIT-C) 1. How often do you have a drink containing alcohol?: Never Total Score: 0 TODD-7 AMB Questionnaire TODD-7 Date TODD - 7 assessed: 05/09/24 Feeling nervous, anxious, or on edge: 0 = Not at all Not being able to stop or control worryin = Not at all Worrying too much about different things: 0 = Not at all Trouble relaxin = Not at all Being so restless that it is hard to sit still: 0 = Not at all Becoming easily annoyed or irritable: 0 = Not at all Feeling afraid as if something awful might happen: 0 = Not at all Total TODD-7 score (0-4 normal; 5-9 mild; 10-14 moderate; 15-21 severe): 0 Source: Developed by Drs. Wilson Cho, Leana Montoya, Logan Akhtar and colleagues, with an educational daisy from [employer]. TODD-7 Assessment Billing TODD-7 Assessment Tool: TODD-7 Assessment 15404 Review of Systems Const All systems reviewed & are unremarkable except as noted in HPI and below Card Denies chest pain at rest, Denies chest pain with activity, Denies edema, Denies irregular heart rhythm, Denies claudication, Denies dyspnea, Denies dyspnea on exertion, Denies orthopnea, Denies paroxysmal nocturnal dyspnea and Denies slow heart rate Resp Denies cough, Denies dyspnea and Denies dyspnea on exertion Neuro Denies behavioral changes and Denies lack of coordination Psych Denies behavioral changes Physical exam (Primary Care) Vital Signs: Last Vital Signs BP 128/80 09/12/24 16:36 BMI result Body Mass Index 42.7 Tobacco/Smoking Status: Tobacco use Status Tobacco use date assessed 05/09/24 09/12/24 16:40 Patient Tobacco Use Status Former Tobacco user 09/12/24 16:40 Tobacco use type Cigarette 09/12/24 16:40 e-Cigarette/Vaping Use Currently Using 09/12/24 16:40 Thrive Assessment: Date of Thrive Assessment Date Thrive assessed 09/12/24 09/12/24 16:40 Currently or been in a relationship where the following occur: I choose not to answer Resp Effort & Inspection: normal respiratory effort Auscultation: clear to auscultation bilaterally Cardio Jugular venous distension: no JVD Rate: regular rate Rhythm: regular rhythm Heart sounds: S1 normal heart sound present and S2 normal heart sound present Extrem General: Yes full ROM Coding Level of Care Code Est Pt Level 4 (14897) Complex EM visit Add On G2211 Diagnoses Type 2 diabetes mellitus with hyperglycemia, with long-term current use of insulin E11.9 Morbid obesity with body mass index (BMI) of 40.0 to 44.9 in adult E66.01; Z68.41 Hyperlipidemia LDL goal <70 E78.5 Essential hypertension I10 Additional Codes TODD-7 Assessment Billing - TODD-7 Assessment Tool: TODD-7 Assessment 74855 ([id number]) Time Spent (min) 25 Assessment & Plan Assessment & Plan (1) Diabetes mellitus: Comment: IDDM Code(s): E11.9 - Type 2 diabetes mellitus without complications Category: Medical (2) Morbid obesity with body mass index (BMI) of 40.0 to 44.9 in adult: Code(s): E66.01 - Morbid (severe) obesity due to excess calories; Z68.41 - Body mass index [BMI] 40.0-44.9, adult Category: Medical (3) Hyperlipidemia LDL goal <70: Code(s): E78.5 - Hyperlipidemia, unspecified Category: Medical (4) Essential hypertension: Code(s): I10 - Essential (primary) hypertension Category: Medical Plan The patient will continue with his current diabetes management plan, including insulin injections before meals and at night. He is encouraged to complete the pending laboratory tests to assess his cholesterol levels and adjust atorvastatin dosage if necessary. For hypertension, the patient will maintain his current lisinopril regimen, as his blood pressure is well-controlled. 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 Patient was informed and verbally consented to the use of an ambient scribe for clinic note documentation during this visit. Orders: Orders Lipid Panel 09/12/24 E78.5 - Hyperlipidemia, unspecified Comprehensive [place]. Panel Fast 09/12/24 E11.9 - Type 2 diabetes mellitus without complications Microalbumin, Random (w Creat) 09/12/24 R80.9 - Proteinuria, unspecified Referrals Sleep Medicine Referral G47.33 - Obstructive sleep apnea (adult) (pediatric) Medical Weight Management Referral E66.01 - Morbid (severe) obesity due to excess calories, Z68.41 - Body mass index [BMI] 40.0-44.9, adult
[2024-09-12 16:36] VITALS: BP 128/80; BMI 42.7
== END 2024-09-12 17:10 | disposition home or self-care (01) ==
LOC: HO.HMCH 16:29
PROVIDERS: PCP Internal Medicine; Visit Provider Internal Medicine
DX: E11.9 Type 2 diabetes mellitus without complications (principal); E66.01 Morbid (severe) obesity due to excess calories; Z68.41 Body mass index [BMI] 40.0-44.9, adult; E78.5 Hyperlipidemia, unspecified; I10 Essential (primary) hypertension

== ENCOUNTER → 2024-09-12 16:28 | Outpatient (BNVA) | payer OTHER, SELFPAY | PROVIDERS: PCP Internal Medicine; Visit Provider Internal Medicine | DX: E11.9 Type 2 diabetes mellitus without complications (principal); E78.5 Hyperlipidemia, unspecified; I10 Essential (primary) hypertension; E66.9 Obesity, unspecified; E66.01 Morbid (severe) obesity due to excess calories; G47.33 Obstructive sleep apnea (adult) (pediatric); Z68.41 Body mass index [BMI] 40.0-44.9, adult; Z79.899 Other long term (current) drug therapy | CPT/HCPCS: 96127 ==

== ENCOUNTER 2024-11-07 14:52 | Outpatient (AMB) | payer OTHER, SELFPAY ==
--- NOTE | 2024-11-07 14:55 | MHC.OFFVIS ---
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 Patient has had CPAP but has not used it do to needing mask. Doesnt really sleep. tired during day. Accompanied by: Self / Same As Patient Allergies No Known Allergies Allergy (Verified 11/07/24 14:59) HPI Comments Details: 43 year old male here for a sleep apnea evaluation he is referred to us by his pcp. He was diagnosed with HALI over 10 years ago. BMI 43. He goes to bed at midnight, and wakes up at 5:30 and has multiples bathroom breaks. He snores loudly and gasps for air and pauses. He gets shortness of breath at night and 138/76, pulse is elevated 108 today. Morning headaches goes away after a few hours, he feels fatigued daily. He takes naps daily for 1-3 hours. Denies parasomnias. T2DM taking long and short acting insulin. He has tingling, burning, paresthesias, with electric shock like pain bilaterally in his calves. He had low back surgery at [facility] L5/S1, sciatica. Declines PT today. [facility] Medical History Phimosis Balanitis Physical exam Hematochezia Increased BMI Epidermal inclusion cyst IBS (irritable bowel syndrome) HSV-2 (herpes simplex virus 2) infection Screening for hypothyroidism Encounter for follow-up surveillance of colon cancer Erectile dysfunction associated with type 2 diabetes mellitus Severe obesity with body mass index (BMI) of 35.0 to 39.9 with comorbidity Essential hypertension Obese Essential hypertension Dyslipidemia Smoker Diabetes mellitus HALI on CPAP Chronic cholecystitis due to cholelithiasis with choledocholithiasis Acalculous cholecystitis Upper abdominal pain Gallstones Surgical History Back abscess Hx laparoscopic cholecystectomy (03/18/20) Status post incision and drainage H/O colonoscopy History of back surgery History of surgery Family History Father Diabetes Mother Diabetes HTN (hypertension) Sister Diabetes Other Heart problem Social History Housing: House Are you a primary direct care counselor to a significant other at home: No Do you presently have visiting nurse or other home services: No Alcohol intake: current Alcohol intake frequency: holidays/special occasions only Alcohol type: beer Comment: medicated earlier, see MAR Patient Tobacco Use Status: Former Tobacco user Tobacco use type: Cigarette Years Smoked: 25 e-Cigarette/Vaping Use: Currently Using Second Hand Smoke Exposure: No service: No Current occupational status: employed Current occupational exposures/hazards: No Cognitive needs: No Hearing needs: No Vision needs: No Review of Systems ENT Reports Normal hearing present Neuro Reports Normal hearing present Physical Exam Vital Signs: Last Vital Signs Pulse 108 H 11/07/24 14:57 BP 138/76 11/07/24 14:57 Pulse Ox 95 11/07/24 14:57 Oxygen Delivery Method Room Air 11/07/24 14:57 BMI result Body Mass Index 43.0 Const General: cooperative, comfortable and no acute distress Nutritional Appearance: overweight Orientation/consciousness: patient oriented x3 HEENT Face and sinus: Yes face symmetric Eyes Pupils: Equal, round and reactive pupils present Neck Neck: Yes full ROM Neuro General: patient oriented x3 and moves all extremities Cranial nerves: Yes Equal, round and reactive pupils present, Yes Normal accommodation reflex present, Yes Normal facial strength present, Yes Midline tongue present, Yes Normal hearing present, Yes Ability to bilaterally rotate head present and Yes Ability to bilaterally elevate shoulders present Gait exam (Neuro): Normal gait present Motor exam (neuro): 5/5 motor strength present throughout and Normal motor muscle tone present throughout Psych Appearance: grossly normal Mental Status: mental status grossly normal Thought process: Normal thought process present Thought content: Normal thought content present Assessment & Plan Assessment & Plan (1) Excessive daytime sleepiness: Code(s): G47.19 - Other hypersomnia Category: Medical (2) RLS (restless legs syndrome): Code(s): G25.81 - Restless legs syndrome Category: Medical (3) Fatigue: Code(s): R53.83 - Other fatigue Category: Medical Qualifiers: Fatigue type: chronic, unspecified Qualified Code(s): R53.82 - Chronic fatigue, unspecified Plan HST to r/o HALI RLS will monitor. Labs to r/o deficiencies. 3month f/u Orders: Orders Vitamin D 25-OH Total 11/08/24 R53.83 - Other fatigue Vitamin B12 and Folate 11/08/24 R53.83 - Other fatigue TSH reflex Free T4 11/08/24 R53.83 - Other fatigue Magnesium 11/08/24 R53.83 - Other fatigue Methylmalonic Acid 11/08/24 G47.9 - Sleep disorder, unspecified, R53.83 - Other fatigue Ferritin 11/08/24 R53.83 - Other fatigue Comprehensive Met. Panel 11/08/24 R53.83 - Other fatigue RT home sleep study 11/07/24 G47.19 - Other hypersomnia, R53.83 - Other fatigue Vitamin B6 11/08/24 R53.83 - Other fatigue Vitamin B1 11/08/24 R53.83 - Other fatigue Homocysteine 11/08/24 G47.9 - Sleep disorder, unspecified, R53.83 - Other fatigue Hemoglobin A1c 11/08/24 R53.83 - Other fatigue Complete Blood Count no Diff 11/08/24 R53.83 - Other fatigue Coding Level of Care Code New Pt Level 4 (12970) Diagnoses Excessive daytime sleepiness G47.19 RLS (restless legs syndrome) G25.81 Chronic fatigue R53.82 Fatigue type: chronic, unspecified Sleep Questionnaire Difficulty falling asleep: Yes Difficulty staying asleep?: Yes Number of arousals: multiple Snoring: Yes Witnessed apneas: Yes Gasping arousals: Yes Nocturia: Yes GERD: No Vivid dreams: No Acting out dreams: No Abnormal behavior in sleep: No Abnormal movements in sleep: No Morning headaches: Yes Excessive daytime sleepiness: Yes Daytime naps: Yes Restless legs: No Hallucinations: No Sleep paralysis: No Drop attacks: No Sleep Study: Yes CPAP: Yes
[2024-11-07 14:57] VITALS: BP 138/76; PULSE 108; O2SAT 95; BMI 43.0
--- OUTSIDE RECORDS SUMMARY | 2024-11-07 15:47 | XMS_ITS | Clinical Summary ---
Author Organization [facility] Address [address] [place] [address] Phone Care Team Providers Care Geospatial Developer Name Role Phone Physician, Pcp Unknown Primary Care Provider Barby vailable Social History Tobacco Use Types Packs/Day Years [...] COVID-19 Vaccine ( season) 2023 05/07/2021, 06/19/2020 Depression Screening 03/15/2024 Cholesterol Screening (Lipid Panel) 07/05/2024 Colorectal Cancer Screening: Colonoscopy 07/05/2024 HIV Screening 07/05/2024 Hepatitis C Screening 07/05/2024 Social Influencers of Health Screening 07/05/2024 Influenza Vaccine (#1) 2024 2, 12/13/2018, 01/12/2017, Additional history exists DTaP,Tdap,and Td [...] 5 Years) and At-Risk Patients (6 to 49 Years) Aged Out No longer eligible based on patient's age to complete this topic RSV Immunization Patients Under 20 months Aged Out No longer eligible based on patient's age to complete this topic Varicella Vaccines Aged Out No longer eligible based on patient's age to complete this topic Insurance [facility] Care Teams Geospatial Developer Relationship Specialty Start Date End Date Physician, Pcp Unknown PCP - General 07/04/24
== END 2024-11-07 15:31 | disposition home or self-care (01) ==
LOC: HO.HSMS 14:53
PROVIDERS: PCP Internal Medicine; Visit Provider Physician Assistant Medical
DX: G47.19 Other hypersomnia (principal); G25.81 Restless legs syndrome; R53.82 Chronic fatigue, unspecified
CPT/HCPCS: 99204

== ENCOUNTER 2024-11-08 07:24 | Outpatient (REF) | payer OTHER, SELFPAY ==
--- OUTSIDE RECORDS SUMMARY | 2024-11-08 07:29 | XMS_ITS | Clinical Summary ---
Author Organization [facility] Address [address] [place] [address] Phone Care Team Providers Care Vice President Client Services Name Role Phone Physician, Pcp Unknown Primary [...] patient's age to complete this topic Insurance [facility] Care Teams Vice President Client Services Relationship Specialty Start Date End Date Physician, Pcp Unknown PCP - General 07/04/24
[2024-11-08 08:42] LABS: Hematocrit 42.5 % (42.0-52.0); Hemoglobin 14.2 g/dl (14.0-18.0); Mean Corpuscular HGB Conc 33.4 g/dl (31.0-36.0); Mean Corpuscular Hemoglobin 29.1 pg (27.0-33.0); Mean Corpuscular Volume 87.1 fL (80.0-98.0); NRBC Abs Auto 0.000 X10*3/uL (0.0-0.012); NRBC Pct Auto 0.0 /100WBC (0.0-0.2); Platelet Count 203 X10*3/uL (160-400); Red Blood Count 4.88 X10*6/uL (4.60-5.80); White Blood Count 6.6 X10*3/uL (4.8-10.8)
[2024-11-08 08:48] LABS: Hemoglobin A1C 415.9872 umol/L; Total Hemoglobin (HGBA1C) 3714.9619 umol/L
[2024-11-08 09:36] LABS: Alanine Aminotransferase 25 U/L (0-40); Albumin Level 4.1 g/dL (3.5-5.0); Alkaline Phosphatase 78 U/L (39-117); Anion Gap 10 (12-20); Aspartate Amino Transferase 19 U/L (5-37); Blood Urea Nitrogen 15 mg/dL (9-16); Calcium 9.2 mg/dL (8.4-10.2); Carbon Dioxide 28 mmol/L (22-29); Chloride 100 mmol/L (96-108); Estimated Glomerular Filt Rate > 60; Magnesium 2.0 mg/dL (1.6-2.6); Potassium 4.2 mmol/L (3.3-5.1); Sodium 134 mmol/L (135-145); Total Protein 7.4 g/dL (6.5-8.0)
[2024-11-08 09:46] LABS: Cholesterol 236 mg/dL (<200); HDL Cholesterol 46 mg/dL (>40); Triglycerides 171 mg/dL (<150)
[2024-11-08 09:55] LABS: Ferritin 20 ng/mL (20-250)
[2024-11-08 09:57] LABS: Folate 13.0 ng/mL (> or = 4.0); Vitamin B12 471 pg/mL (200-900)
[2024-11-08 14:45] LABS: Microalbum/Creatinine Ratio Ur 231.8 ug/mg cr (<30)
== END 2024-11-08 07:25 | disposition home or self-care (01) ==
LOC: HO.LAB 07:24
PROVIDERS: Absent Provider Physician Assistant Medical; PCP Internal Medicine; Referring Provider Nurse Practitioner; Visit Provider Internal Medicine
DX: R53.83 Other fatigue (principal); G47.9 Sleep disorder, unspecified; E78.5 Hyperlipidemia, unspecified; R80.9 Proteinuria, unspecified; Z13.1 Encounter for screening for diabetes mellitus
CPT/HCPCS: 36415; 80053; 80061; 82043; 82306; 82570; 82607; 82728; 82746; 83036; 83090; 83735; 83921; 84207; 84425; 84443; 85027

== ENCOUNTER 2024-11-17 15:15 | Outpatient (AMB) | payer OTHER, SELFPAY ==
--- NOTE | 2024-11-17 15:17 | A.OFFVIS_ITS ---
Intake Visit Reasons: 6m follow up Intake Note: Patient is present for 6m follow up Urology Medication:Clotrimazole Betamethasone Antibiotic Allergy:NONE Blood Thinner:NONE Needle Process Felt Goods Supervisor Required: No Accompanied by: Self / Same As Patient Allergies No Known Allergies Allergy (Verified 11/17/24 15:17) HPI Comments Details: Andrea is a pleasant male. He is a patient of Dr. Boyer. He seen for the following urologic conditions - phimosis in setting of diabetes and morbid obesity - erectile dysfunction in setting of diabetes Six-month follow-up Undergoing sleep apnea evaluation Poorly controlled diabetes HbA1c 12.4 Needs testosterone labs Phimosis is controllable with topical therapy Would recommend circumcision once HbA1c under 8.5 Progressive erectile dysfunction in setting of diabetes Tadalafil 5 mg daily Tadalafil 20 mg on demand Medications refilled an explanation provided on how to use PFSH Medical History (Updated 11/17/24 @ 15:42 by Kleber Irizarry MD) Phimosis Balanitis Physical exam Hematochezia Increased BMI Epidermal inclusion cyst IBS (irritable bowel syndrome) HSV-2 (herpes simplex virus 2) infection Screening for hypothyroidism Encounter for follow-up surveillance of colon cancer Erectile dysfunction associated with type 2 diabetes mellitus Severe obesity with body mass index (BMI) of 35.0 to 39.9 with comorbidity Essential hypertension Obese Essential hypertension Dyslipidemia Smoker Diabetes mellitus HALI on CPAP Chronic cholecystitis due to cholelithiasis with choledocholithiasis Acalculous cholecystitis Upper abdominal pain Gallstones Surgical History Back abscess Hx laparoscopic cholecystectomy (03/18/20) Status post incision and drainage H/O colonoscopy History of back surgery History of surgery Family History Father Diabetes Mother Diabetes HTN (hypertension) Sister Diabetes Other Heart problem Social History Housing: House Are you a primary summer child caregiver to a significant other at home: No Do you presently have visiting nurse or other home services: No Alcohol intake: current Alcohol intake frequency: holidays/special occasions only Alcohol type: beer Comment: medicated earlier, see MAR Patient Tobacco Use Status: Former Tobacco user Tobacco use type: Cigarette Years Smoked: 25 e-Cigarette/Vaping Use: Currently Using Second Hand Smoke Exposure: No service: No Current occupational status: employed Current occupational exposures/hazards: No Cognitive needs: No Hearing needs: No Vision needs: No Review of Systems Const Denies chills and Denies fever(s) Card Reports no additional complaints and Denies syncope Resp Denies cough GI Denies abdominal pain and Denies heartburn Reports as per HPI and Denies change in libido Neuro Denies syncope Psych Denies change in libido Endo Denies change in libido Physical Exam Const General: cooperative, healthy appearing, comfortable and no acute distress Orientation/consciousness: patient oriented x3 HEENT Face and sinus: Yes normal facial exam Mouth: moist mucous membranes Neck Neck: Yes normal visual inspection, Yes full ROM and Yes trachea midline Chest Chest palpation & inspection: normal inspection of the chest Resp Effort & Inspection: normal respiratory effort, able to speak in complete sentences and no respiratory distress GI Inspection: Yes normal to inspection Back/Spine/Pelvis Cervical Spine: normal cervical lordosis Thoracic/Lumbar Spine: thoracic and lumbar spine normal to inspection Skin General skin exam: no rashes or lesions noted Neuro General: patient oriented x3, gait normal, tone normal and moves all extremities Extrem General: Yes normal to inspection and Yes capillary refill normal Assessment & Plan Assessment & Plan (1) Erectile dysfunction associated with type 2 diabetes mellitus: Code(s): E11.69 - Type 2 diabetes mellitus with other specified complication; N52.1 - Erectile dysfunction due to diseases classified elsewhere Category: Medical (2) Phimosis: Code(s): N47.1 - Phimosis Category: Medical Plan Continue topical therapy Check testosterone labs Six-month follow-up Orders: Orders Testosterone, Free/Total Today E11.69 - Type 2 diabetes mellitus with other specified complication, N52.1 - Erectile dysfunction due to diseases classified elsewhere Medications: Refilled clotrimazole-betamethasone 1-0.05 % Apply thin coat 2 times per day for 2-3 days after intercourse 1 appl topical BID 45 grams 0RF 4 weeks N48.1 - Balanitis Patient Instructions: This note is constructed using voice recognition software. While every effort has been made to ensure accuracy event specialist food demonstrator errors may have been included. Imaging studies, laboratory and physical exam results were discussed and reviewed in detail. No major barriers to patient understanding were identified. An opportunity to ask questions regarding the treatment plan was provided. All questions were answered. The patient expressed understanding and agreement with the above treatment plan. The patient is aware they should contact our office by phone for worsening of their current condition or the appearance of new urologic symptoms. Compliance is encouraged with any medications and followup testing that is ordered. It is a privilege to participate in the urologic care of your patient. If you have any questions or concerns regarding treatment for the above conditions, or other urologic issues, please do not hesitate to contact me. The office telephone contact is [phone]. Sincerely, Dr Kleber Irizarry MD, [facility] - Urology Compassionate Specialist Care for the Genitourinary System Coding Level of Care Code Est Pt Level 4 (66972) Diagnoses Erectile dysfunction associated with type 2 diabetes mellitus E11.69; N52.1 Phimosis N47.1
--- OUTSIDE RECORDS SUMMARY | 2024-11-17 15:29 | XMS_ITS | Clinical Summary ---
Author Organization [facility] Address [address] [place] [address] Phone Care Team Providers Care Gas Meter Repairer Name Role Phone Physician, Pcp Unknown Primary [...] Health Maintenance Due Date Last Done Comments Depression Screening 03/15/2024 Cholesterol Screening (Lipid Panel) 07/05/2024 Colorectal Cancer Screening: Colonoscopy 07/05/2024 HIV Screening 07/05/2024 Hepatitis C Screening 07/05/2024 Social Influencers of Health Screening 07/05/2024 COVID-19 Vaccine ( season) 2024 05/07/2021, 06/19/2020 Influenza Vaccine (#1) 2024 , 12/13/2018, 01/12/2017, Additional history exists DTaP,Tdap,and Td [...] patient's age to complete this topic Insurance [facility] Care Teams Gas Meter Repairer Relationship Specialty Start Date End Date Physician, Pcp Unknown PCP - General 07/04/24
== END 2024-11-17 15:51 | disposition home or self-care (01) ==
LOC: HO.HUSH 15:16
PROVIDERS: PCP Internal Medicine; Visit Provider Urology
DX: E11.69 Type 2 diabetes mellitus with other specified complication (principal); N52.1 Erectile dysfunction due to diseases classified elsewhere; N47.1 Phimosis
CPT/HCPCS: 99214

== ENCOUNTER → 2024-11-17 15:15 | Outpatient (BNVA) | payer OTHER, SELFPAY | PROVIDERS: PCP Internal Medicine; Visit Provider Urology | DX: N47.1 Phimosis (principal); E11.69 Type 2 diabetes mellitus with other specified complication; Z79.4 Long term (current) use of insulin; Z87.891 Personal history of nicotine dependence; N52.1 Erectile dysfunction due to diseases classified elsewhere; Z13.89 Encounter for screening for other disorder ==

== ENCOUNTER 2024-12-11 05:53 | Emergency (ER) | payer OTHER, SELFPAY ==
[2024-12-11 05:59] VITALS: BP 153/91; PULSE 104; RESP 18; TEMP 36.7; O2SAT 94; BMI 43.1
--- OUTSIDE RECORDS SUMMARY | 2024-12-11 06:20 | XMS_ITS | Clinical Summary ---
Author Organization [facility] Address [address] [place] [address] Phone Care Team Providers Care Pipeline Inspector Name Role Phone Physician, Pcp Unknown Primary [...] Td or Tdap) 05/09/2034 05/09/2024, 12/28/2011, 04/05/2006 RSV Immunization Adult Patients (1 - 1-dose 75+ series) 2053 Hepatitis A Vaccines Aged Out 05/10/2009, 05/11/19 [...] patient's age to complete this topic Insurance [facility] Care Teams Pipeline Inspector Relationship Specialty Start Date End Date Physician, Pcp Unknown PCP - General 07/04/24
--- NOTE | 2024-12-11 06:37 | ED.GENADULT ---
HPI - General Adult General Chief complaint: Eye Problems Stated complaint: swollen left eye and legs Time Seen by Provider: 12/11/24 06:17 Source: patient Mode of arrival: ambulatory Limitations: no limitations History of Present Illness ED Provider: DR. Aguilar HPI narrative: 44-year-old male came in for evaluation of multiple complaints. Left upper eyelid swelling and redness, no trauma, no fever, no chills, no drainage from the eye. 2. 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 No shortness of breath, no gaining weight, normal urination. 3. Patient with known history of herpes genitalia been complaining of painful rash on his penis. patient is sexually active days for few until it goes away. Related Data Home Medications ?Medication ?Instructions ?Recorded ?Confirmed multivitamin 1 tab PO DAILY 07/17/24 09/12/24 Previous Rx's ?Medication ?Instructions ?Recorded blood pressure monitor #1 ea 04/17/21 FreeStyle Connie 3 Plus Sensor #2 ea 06/01/24 (blood-glucose sensor) pen needle, diabetic 32 gauge x #200 ea 06/01/24 insulin glargine-yfgn 100 unit/mL 34 unit (0.34 mL) subcut QPM 30 08/04/24 (3 mL) subcutaneous pen (Semgl days #12 mL (insulin glargine-yfgn) Pen) insulin lispro 100 unit/mL 16 unit (0.16 mL) subcut BID 30 08/04/24 subcutaneous pen days #12 mL peg 3350-electrolytes 236 240 ml PO Q10M 1 day #4,000 mL 08/04/24 gram-22.74 gram-6.74 gram-5.86 gram solution (Golytely) atorvastatin 20 mg tablet 20 mg PO BEDTIME 90 days #90 tabs 10/25/24 clotrimazole-betamethasone 1 1 appl topical BID 4 weeks #45 11/17/24 %-0.05 % topical cream grams lisinopril 30 mg tablet 30 mg PO DAILY 30 days #30 tabs 12/01/24 erythromycin 5 mg/gram (0.5 %) eye 0.5 inch ophthalmic (eye) TID #3.5 12/11/24 ointment grams valacyclovir 500 mg tablet 500 mg PO BID #6 tabs 12/11/24 (Valtrex) Allergies Allergy/AdvReac Type Severity Reaction Status Date / Time No Known Allergies Allergy Verified 12/11/24 06:05 Review of Systems Review of Systems: all other systems are reviewed and are negative Constitutional: Reports as per HPI and Reports no additional constitutional complaints Eyes: Reports as per HPI and Reports no additional eye complaints Reports system reviewed and no additional complaints, except as documented Cardiovascular: Reports as per HPI and Reports no additional cardiovascular complaints Respiratory: Reports as per HPI and Reports no additional respiratory complaints Gastrointestinal: Reports as per HPI and Reports no additional gastrointestinal complaints Genitourinary: Reports no additional female genitourinary complaints Musculoskeletal: Reports no additional musculoskeletal complaints Skin/Breast: Reports system reviewed and no additional complaints, except as docu Psychiatric: Reports no additional psychiatric complaints Endocrine: Reports no additional endocrine complaints Hematologic/Lymphatic: Reports no additional hematologic/lymphatic complaints Allergic/Immunologic: Reports no additional allergic/immunologic complaints Reports system reviewed and no additional complaints, except as documented and Reports Abnormal speech present [facility] Past Medical History Medical History Phimosis Balanitis Physical exam Hematochezia Increased BMI Epidermal inclusion cyst IBS (irritable bowel syndrome) HSV-2 (herpes simplex virus 2) infection Screening for hypothyroidism Encounter for follow-up surveillance of colon cancer Erectile dysfunction associated with type 2 diabetes mellitus Severe obesity with body mass index (BMI) of 35.0 to 39.9 with comorbidity Essential hypertension Obese Essential hypertension Dyslipidemia Smoker Diabetes mellitus HALI on CPAP Chronic cholecystitis due to cholelithiasis with choledocholithiasis Acalculous cholecystitis Upper abdominal pain Gallstones Surgical History Back abscess Hx laparoscopic cholecystectomy (03/18/20) Status post incision and drainage H/O colonoscopy History of back surgery History of surgery Family History Family History Father Diabetes Mother Diabetes HTN (hypertension) Sister Diabetes Other Heart problem Social History Social History Housing: House Are you a primary managed care coordinator to a significant other at home: No Do you presently have visiting nurse or other home services: No Alcohol intake: current Alcohol intake frequency: holidays/special occasions only Alcohol type: beer Comment: medicated earlier, see MAR Patient Tobacco Use Status: Former Tobacco user Tobacco use type: Cigarette Years Smoked: 25 Smoked in Last 30 Days: Yes e-Cigarette/Vaping Use: Currently Using Second Hand Smoke Exposure: No Use of substances other than those prescribed or required for medical reasons: No Advance Directives: No Advance Directives Information Provided: No service: No Current occupational status: employed Current occupational exposures/hazards: No Cognitive needs: No Hearing needs: No Vision needs: No Physical Exam ED Vital Signs: Vital Signs - 24 hr 12/11/24 05:59 Temperature 98.0 F Pulse Rate 104 H Respiratory Rate 18 Blood Pressure 153/91 H Pulse Oximetry 94 Oxygen Delivery Method Room Air BMI result Body Mass Index 43.1 Vital signs have been reviewed and appear to be correct. Blood pressure elevated. Heart rate normal. Respiratory rate normal. Temperature normal. Oxygen saturation normal. Appearance: Alert. Oriented X3. No acute distress. Head: Normal external exam. Normocephalic. Atraumatic. No Clarke signs noted. No raccoon eyes noted Eyes: right upper eyelid swollen and red no fluctuation, mild tenderness possible old stye, no foreign body, no corneal fluorescein uptake, IOP 14. ENT: TM's Normal. Pharynx normal. Uvula midline. Moist mucous membranes. No trismus noted. No drooling noted. No muffled voice noted. Neck: Normal inspection. Neck supple. FROM. No adenopathy. Thyroid Normal. No meningeal signs. No neck mass noted. CVS: Normal heart rate and rhythm. Heart sound normal. No murmurs noted. Pulses normal throughout. Respiratory: No respiratory distress. Painless inspiration. Breath sounds normal. No wheezes/rales/rhonchi noted. Chest nontender. No accessory muscle usage noted or decreased air movement noted. Abdomen: Soft and nontender. Bowel sounds normal in all 4 quadrants. No distention noted. No organomegaly noted. No visible injury noted. exam: Uncircumcised, 2-3 red papular rash with no vesicle or fluids at the tip of glans penis which is represent activated herpes genitalis Back: No CVA tenderness. Full range of motion noted. Skin: Skin warm and dry. Normal skin color. Normal skin turgor. No rashes/lesions/lacerations noted. Extremities: No lower extremity edema. Extremities exhibit normal range of motion. Extremities nontender. Neuro: Oriented X 3. Cranial nerve exam: II-XII are grossly intact No motor deficit. No sensory deficit. Reflexes normal. Course Reevaluation(s) Reevaluation #1: 44-year-old male came in for evaluation of multiple symptoms. 1. Left infected stye will start on erythromycin and warm compressions. 2. Activated herpes genitalis patient was instructed to abstain from having sexual intercourse until symptoms disappear and encouraged to use protective sex will start the patient on vulva acyclovir 500 mg p.o. b.i.d. for 3 days. 3. Patient is complaining of bilateral lower extremity swelling, likely secondary to venous status patient was instructed to keep exercising and moving avoid prolonged immobilization. Time: 06:51 Medical Decision Making Differential Diagnosis Differential Diagnoses: The differential diagnosis associated with the presentation includes ( Infected stye, foreign body in the eye, STDs, herpes simplex activation,) Admission/Observation Consideration of admission/observation: Escalation of care including admission/observation considered Lab Data MDM Lab Attestation statement: I reviewed the patient's lab results. ABG Data Attestation ABG: I personally reviewed and interpreted this ABG as follows: Discharge Plan Discharge Clinical Impression: Blepharitis, Stye, Herpes genitalis in men Patient Disposition: Home, Self-Care Instructions: Genital Herpes Infection (ED), Stye (ED), Blepharitis (ED) Additional Instructions: 1. Apply warm compression on the left eye every 6 hours for 2-3 days until the swelling and redness disappear. 2. No sexual intercourse until lesions on your penis disappear and use protective sex with you partner highly recommended to have partner tested for herpes. 3. Avoid prolonged immobilization, take 5-10 minutes walking after driving for long hours, Elevate your leg with 2 pillows at nighttime. Prescriptions: New valacyclovir [Valtrex] 500 mg tablet 500 mg PO BID Qty: 6 0RF erythromycin 5 mg/gram (0.5 %) ointment 0.5 inch ophthalmic (eye) TID Qty: 3.5 0RF No Action atorvastatin 20 mg tablet 20 mg PO BEDTIME 90 Days Qty: 90 1RF lisinopril 30 mg tablet 30 mg PO DAILY 30 Days Qty: 30 4RF multivitamin Tablet 1 tab PO DAILY (DME) blood pressure monitor Kit See Rx Instructions .Route Qty: 1 0RF Rx Instructions: As directed insulin glargine-yfgn [Semglee(insulin glarg-yfgn)Pen] 100 unit/mL (3 mL) insulin pen 34 unit subcut QPM 30 Days Qty: 12 2RF insulin lispro 100 unit/mL insulin pen 16 unit subcut BID 30 Days Qty: 12 3RF Rx Instructions: before breakfast and supper peg 3350-electrolytes [Golytely] 236-22.74-6.74 -5.86 gram recon soln 240 ml PO Q10M 1 Days Qty: 4000 0RF Rx Instructions: until fecal effluent is clear; do not exceed a total volume of 2,000 mL clotrimazole-betamethasone 1-0.05 % cream 1 appl topical BID 28 Days Qty: 45 0RF Rx Instructions: Apply thin coat 2 times per day for 2-3 days after intercourse (DME) FreeStyle Connie 3 Plus Sensor Device See Rx Instructions .ROUTE .MEDSUPPLY Qty: 2 11RF Rx Instructions: as directed every 15 days (DME) pen needle, diabetic 32 gauge x 5/32 needle See Rx Instructions .ROUTE .MEDSUPPLY Qty: 200 3RF Rx Instructions: bid Print Language: Danish
[2024-12-11 06:38] LABS: MANUAL DIFF FLAG NO
[2024-12-11 06:39] LABS: Hematocrit 43.9 % (42.0-52.0); Hemoglobin 14.8 g/dl (14.0-18.0); Imm Gran Abs Auto 0.04 X10*3/uL (0.00-0.03); Imm Gran Pct Auto 0.4 % (0.0-0.4); Lymphocytes Absolute Auto 1.5 X10*3/uL (1.2-4.9); Mean Corpuscular HGB Conc 33.7 g/dl (31.0-36.0); Mean Corpuscular Hemoglobin 29.2 pg (27.0-33.0); Mean Corpuscular Volume 86.8 fL (80.0-98.0); NRBC Abs Auto 0.000 X10*3/uL (0.0-0.012); NRBC Pct Auto 0.0 /100WBC (0.0-0.2); Platelet Count 210 X10*3/uL (160-400); Red Blood Count 5.06 X10*6/uL (4.60-5.80); White Blood Count 9.6 X10*3/uL (4.8-10.8)
[2024-12-11 06:54] LABS: Alanine Aminotransferase 27 U/L (0-40); Albumin Level 4.3 g/dL (3.5-5.0); Alkaline Phosphatase 79 U/L (39-117); Anion Gap 10 (12-20); Aspartate Amino Transferase 17 U/L (5-37); Blood Urea Nitrogen 18 mg/dL (9-16); Calcium 9.3 mg/dL (8.4-10.2); Carbon Dioxide 29 mmol/L (22-29); Chloride 102 mmol/L (96-108); Creatinine Clr Calc Pharmacy 147.9; Estimated Glomerular Filt Rate > 60; Potassium 4.3 mmol/L (3.3-5.1); Sodium 137 mmol/L (135-145); Total Protein 7.9 g/dL (6.5-8.0)
[2024-12-11 07:29] VITALS: BP 129/80; PULSE 92; RESP 20; TEMP 36.9; O2SAT 95
== END 2024-12-11 07:30 | disposition home or self-care (01) ==
PROVIDERS: Emergency Provider Emergency Medicine; PCP Internal Medicine
DX: H00.016 Hordeolum externum left eye, unspecified eyelid (principal); H01.006 Unspecified blepharitis left eye, unspecified eyelid; A60.00 Herpesviral infection of urogenital system, unspecified; E66.9 Obesity, unspecified; I10 Essential (primary) hypertension; M79.89 Other specified soft tissue disorders; Z68.41 Body mass index [BMI] 40.0-44.9, adult; Z72.0 Tobacco use; Z79.899 Other long term (current) drug therapy
CPT/HCPCS: 36415; 80053; 85025; 99283; 99284

== ENCOUNTER 2025-01-14 04:17 | Emergency (ER) | payer OTHER, SELFPAY ==
[2025-01-14 04:29] VITALS: BP 169/91; PULSE 96; RESP 20; TEMP 36.6; O2SAT 97; BMI 43.6
--- OUTSIDE RECORDS SUMMARY | 2025-01-14 04:39 | XMS_ITS | Clinical Summary ---
Author Organization [facility] Address [address] [place] [address] Phone Care Team Providers Care Mine Expert Name Role Phone Physician, Pcp Unknown Primary [...] Health Maintenance Due Date Last Done Comments Colorectal Cancer Screening: Colonoscopy 1978 Depression Screening 03/15/2024 Cholesterol Screening (Lipid Panel) 07/05/2024 HIV Screening 07/05/2024 Hepatitis C Screening [...] patient's age to complete this topic Insurance [facility] Care Teams Mine Expert Relationship Specialty Start Date End Date Physician, Pcp Unknown PCP - General 07/04/24
[2025-01-14 05:05] VITALS: BP 162/96; PULSE 97; TEMP 37.1; O2SAT 94
--- NOTE | 2025-01-14 05:22 | ED_ITS ---
HPI - Male Genitourinary General Chief complaint: Urogenital-Male Stated complaint: personal reason Time Seen by Provider: 01/14/25 04:50 Source: patient Limitations: language barrier History of Present Illness ED Provider: Sharifa Garcia PA-C HPI Narrative: 44-year-old male with a history of morbid obesity, diabetes, prior phimosis, prior balanitis, HSV, hypertension, hyperlipidemia, who presents with penile l esions that he has had for months. Patient states he was seen in the emergency department over a month ago, he was given a cream, however the lesions persisted. At that time, the patient states an exam was not performed. The lesions are tender, they are on his foreskin and on the glans penis. They are not consistent with the his HSV lesions. Patient denies new sexual contacts, fever, penile discharge, or inability to retract the foreskin. Related Data Home Medications ?Medication ?Instructions ?Recorded ?Confirmed multivitamin 1 tab PO DAILY 07/17/24 07/0 04/08 Previous Rx's ?Medication ?Instructions ?Recorded blood pressure monitor #1 ea 04/17/21 FreeStyle Connie 3 Plus Sensor #2 ea 06/01/24 (blood-glucose sensor) pen needle, diabetic 32 gauge x #200 ea 06/01/24 insulin glargine-yfgn 100 unit/mL 34 unit (0.34 mL) aj bcut QPM 30 08/04/24 (3 mL) subcutaneous pen (Semglee days #12 mL (insulin glargine-yfgn) Pen) insulin lispro 100 unit/mL 16 unit (0.16 mL) subcut BI D 30 08/04/24 subcutaneous pen days #12 mL peg 3350-electrolytes 236 240 ml PO Q10M 1 day #4,000 mL 08/04/24 gram-22.74 gram-6.74 gram-5.86 gram solution (Golytely) atorvastatin 20 mg tablet 20 mg PO BEDTIME 90 days #90 tabs 10/25/24 clotrimazole-betamethasone 1 1 appl topical BID 4 week s #45 11/17/24 %-0.05 % topical cream grams lisinopril 30 mg tablet 30 mg PO DAILY 30 days #30 t abs 12/01/24 erythromycin 5 mg/gram (0.5 %) eye 0.5 inch ophthalmic (eye) TID #3.5 12/11/24 ointment grams valacyclovir 500 mg tablet 500 mg PO BID #6 tabs 12/11 (Valtrex) Allergies Allergy/AdvReac Type Severity Reaction Status Date / Time No Known Allergies Allergy Verified 01/14/25 04:33 Review of Systems Review of Systems: Yes all other systems are reviewed and are negative Constitutional: Constitutional: Denies fatigue and Denies fever(s) Gastrointestinal: Gastrointestinal: Denies abdominal pain, Denies nausea and Denies vomiting Genitourinary: Genitourinary: Reports genital lesions, Reports genital pain, Denies dysuria, Denies penile discharge, Denies scrotal swelling, Denies testicular mass and Denies testicular pain Endocrine: Endocrine: Denies fatigue PMFSH Past Medical History Attestation statement: The following information was validated with the patient. Medical History Phimosis Balanitis Physical exam Hematochezia Increased BMI Epidermal inclusion cyst IBS (irritable bowel syndrome) HSV-2 (herpes simplex virus 2) infection Screening for hypothyroidism Encounter for follow-up surveillance of colon cancer Erectile dysfunction associated with type 2 diabetes mellitus Severe obesity with body mass index (BMI) of 35.0 to 39.9 with comorbidity Essential hypertension Obese Essential hypertension Dyslipidemia Smoker Diabetes mellitus HALI on CPAP Chronic cholecystitis due to cholelithiasis with choledocholithiasis Acalculous cholecystitis Upper abdominal pain Gallstones Surgical History Back abscess Hx laparoscopic cholecystectomy (03/18/20) Status post incision and drainage H/O colonoscopy History of back surgery History of surgery Family History Family History Father Diabetes Mother Diabetes HTN (hypertension) Sister Diabetes Other Heart problem Social History Social History Housing: House Are you a primary medicare compliance auditor to a significant other at home: No Do you presently have visiting nurse or other home services: No Alcohol intake: current Alcohol intake frequency: holidays/special occasions only Alcohol type: beer Comment: medicated earlier, see MAR Patient Tobacco Use Status: Former Tobacco user Tobacco use type: Cigarette Years Smoked: 25 e-Cigarette/Vaping Use: Currently Using Second Hand Smoke Exposure: No Advance Directives: No Advance Directives Information Provided: Yes Do you have a plan to hurt others: No Plan service: No Current occupational status: employed Current occupational exposures/hazards: No Cognitive needs: No Hearing needs: No Vision needs: No Physical Exam Vital Signs: Vital Signs: Last Vital Signs Temp 98.7 F 01/14/25 05:05 Pulse 97 01/14/25 05:05 Resp 20 01/14/25 04:29 BP 162/96 H 01/14/25 05:05 Pulse Ox 94 01/14/25 05:05 O2 Del Method Room Air 01/14/25 05:05 BMI result Body Mass Index 43.6 Const: Other: Alert Orientation/consciousness: patient oriented x3 Resp: Effort & Inspection: normal respiratory effort Cardio: Other: Normal peripheral perfusion : Other: There is a lesion on the glans penis, and along the foreskin, the lesion on the foreskin is larger than the 1 on the glans penis. They both are cauliflower like in appearance, whitish yellow in color Skin: Other: Warm dry no rash Neuro: General: patient oriented x3, gait normal, no focal motor deficits and CN's II-XI intact bilaterally Psych: Other: Cooperative Medical Decision Making Medical Decision Making MDM Narrative: 44-year-old male with a history of morbid obesity, diabetes, prior phimosis, prior balanitis, HSV, hypertension, hyperlipidemia, who presents with penile le sions that he has had for months. Patient states he was seen in the emergency department over a month ago, he was given a cream, however the lesions persisted. At that time, the patient states an exam was not performed. The lesions are tender, they are on his foreskin and on the glans penis. They are not consistent with the his HSV lesions. Patient denies new sexual contacts, fever, penile discharge, or inability to retract the foreskin. Problem: Diabetes, obesity, prior phimosis and balanitis, known HSV History: Per patient I have considered the following differential diagnoses: HPV lesion, condylomata acuminata, giant condyloma/verrucous carcinoma, HSV, molluscum, syphilis chancre, urethritis Plan: The patient has some form of warty lesion, he needs testing to determine what type he has. He has been seen by our urology service in the past, I will send a referral through the system, he is aware. The lesions are not consistent with a herpes or syphilis, certainly not molluscum. He also has no penile discharge or dysuria to suggest urethritis. Differential Diagnosis Differential Diagnoses: The differential diagnosis associated with the presentation includes See medical decision-making Admission/Observation Consideration of admission/observation: Escalation of care including admission/observation considered Not applicable Consult Healthcare Provider Management of the patient was discussed with: Supervisor [employer] Urology as an outpatient Discharge Plan Discharge Clinical Impression: Genital warts Patient Disposition: Home, Self-Care Instructions: Genital Warts (ED) Additional Instructions: It is very concerning that you have genital warts secondary to the HPV virus. You need to follow up with Urology, you need biopsy testing of the lesions to confirm the diagnosis. I am providing you with a contact for our urology service, you have seen them in the past. Call Wednesday to make an appointment. Prescriptions: No Action atorvastatin 20 mg tablet 20 mg PO BEDTIME 90 Days Qty: 90 1RF lisinopril 30 mg tablet 30 mg PO DAILY 30 Days Qty: 30 4RF multivitamin Tablet 1 tab PO DAILY valacyclovir [Valtrex] 500 mg tablet 500 mg PO BID Qty: 6 0RF erythromycin 5 mg/gram (0.5 %) ointment 0.5 inch ophthalmic (eye) TID Qty: 3.5 0RF (DME) blood pressure monitor Kit See Rx Instructions .Route Qty: 1 0RF Rx Instructions: As directed insulin glargine-yfgn [Semglee(insulin glarg-yfgn)Pen] 100 unit/mL (3 mL) insulin pen 34 unit subcut QPM 30 Days Qty: 12 2RF insulin lispro 100 unit/mL insulin pen 16 unit subcut BID 30 Days Qty: 12 3RF Rx Instructions: before breakfast and supper peg 3350-electrolytes [Golytely] 236-22.74-6.74 -5.86 gram recon soln 240 ml PO Q10M 1 Days Qty: 4000 0RF Rx Instructions: until fecal effluent is clear; do not exceed a total volume of 2,000 mL clotrimazole-betamethasone 1-0.05 % cream 1 appl topical BID 28 Days Qty: 45 0RF Rx Instructions: Apply thin coat 2 times per day for 2-3 days after intercourse (DME) FreeStyle Connie 3 Plus Sensor Device See Rx Instructions .ROUTE .MEDSUPPLY Qty: 2 11RF Rx Instructions: as directed every 15 days (DME) pen needle, diabetic 32 gauge x 5/32 needle See Rx Instructions .ROUTE .MEDSUPPLY Qty: 200 3RF Rx Instructions: bid Referrals: Gricel Ho MD [Physician, Urology] Referral Note: concern for HPV vs condylomata acuminata penile and foreskin lesion, needs testing/removal, he is a patient at your practice Print Language: English
[2025-01-14 06:05] VITALS: BP 138/84; PULSE 62; RESP 19; TEMP 36.7; O2SAT 98
== END 2025-01-14 06:06 | disposition home or self-care (01) ==
PROVIDERS: Emergency Provider Student in an Organized Health Care Education/Training Program; PCP Internal Medicine
DX: A63.0 Anogenital (venereal) warts (principal); E11.9 Type 2 diabetes mellitus without complications; I10 Essential (primary) hypertension
CPT/HCPCS: 99283

== ENCOUNTER 2025-01-24 15:21 | Outpatient (AMB) | payer OTHER, SELFPAY ==
[2025-01-24 15:24] VITALS: BP 170/100; PULSE 100; O2SAT 96; BMI 43.9
--- NOTE | 2025-01-24 15:24 | A.OFFVIS_ITS ---
Vital Signs 01/24/25 15:24 Height 6 ft Weight 324 lb 1.272 oz BMI 43.9 BP 170/100 H Blood Pressure Location Lt brachial Position Sitting Pulse 100 Pulse Source Pulse Oximeter Pulse Oximetry (%) 96 Oxygen Delivery Method Room Air Intake Visit Reasons: T2DM Intake Note: Patient present today to follow up on Type 2 Diabetes Mellitus. Last Diabetic Eye exam: Last exam was about 2 months ago Last Podiatry Visit: Doesn't have one Random Glucose: 276 mg/dl Hgb A1C: 12.4% 11/08/2024 Product Management Intern Required: No Accompanied by: Self / Same As Patient Allergies No Known Allergies Allergy (Verified 01/24/25 15:30) Medication List - Last Reconciled 01/24/25 by Wilson Hughes MD atorvastatin 20 mg PO BEDTIME 90 days blood pressure monitor As directed clotrimazole-betamethasone 1-0.05 % 1 appl topical BID 4 weeks erythromycin 0.5 inches ophthalmic (eye) TID FreeStyle Connie 3 Plus Sensor (blood-glucose sensor) as directed every 15 days NS insulin glargine-yfgn (Semglee (insulin glargine-yfgn) Pen) 34 units (0.34 mL) subcut QPM 30 days insulin lispro 16 units (0.16 mL) subcut BID 30 days lisinopril 30 mg PO DAILY 30 days multivitamin 1 tab PO DAILY peg 3350-electrolytes 236-22.74-6.74 -5.86 gram (Golytely) 240 mL PO Q10M 1 day pen needle, diabetic bid NS valacyclovir (Valtrex) 500 mg PO BID HPI Comments Details: 44 YO male who is seen in f/u for DM. He was last seen by Missy Denny NP on 08/04/24 . started on Semglee 20 units and 8 units of a short-acting insulin with the supper. Most recent A1c 05/09 12.3% Initially diagnosed with T2DM 2002 Was initially started on treatment with metformin self discontinued upset stomach most of the time diarrhea Has not been on GLp-1 agonist, jardiance hadn't started used glipizide in the past ineffective Was on insulin in the past not sure what type of insulin Off all medications for one and a half years due to cost. Gladis was sent to his pharmacy but was told it was not covered by his insurance after his last visit and he was started on Semglee 20 units at bedtime and Humalog 8 units before the biggest meal. Current regimen: Semglee 34 units Humalog 16 units pre breakfast Unfortunately, patient did not bring his log book, glucometer or sensor to follow up visit Reports low sugars: no history of lows He had difficulty affording freestyle Readings have been elevated Family history of T2DM: Mother father and sibling Has diabetic retinopathy getting monthly injections. Last appt 2 mos ago had laser Has some neuropathy: numbness/tingling Denies nephropathy, 07/14/2024 eGFR>60 Has HLD, on statin recently started. Last LDL 127 2021 Denies CAD. Diet: trys to balance but has difficulty with this Gets some exercise PFSH Medical History Phimosis Balanitis Physical exam Hematochezia Increased BMI Epidermal inclusion cyst IBS (irritable bowel syndrome) HSV-2 (herpes simplex virus 2) infection Screening for hypothyroidism Encounter for follow-up surveillance of colon cancer Erectile dysfunction associated with type 2 diabetes mellitus Severe obesity with body mass index (BMI) of 35.0 to 39.9 with comorbidity Essential hypertension Obese Essential hypertension Dyslipidemia Smoker Diabetes mellitus HALI on CPAP Chronic cholecystitis due to cholelithiasis with choledocholithiasis Acalculous cholecystitis Upper abdominal pain Gallstones Surgical History Back abscess Hx laparoscopic cholecystectomy (03/18/20) Status post incision and drainage H/O colonoscopy History of back surgery History of surgery Family History Father Diabetes Mother Diabetes HTN (hypertension) Sister Diabetes Other Heart problem Social History Housing: House Are you a primary resident care spec to a significant other at home: No Do you presently have visiting nurse or other home services: No Alcohol intake: current Alcohol intake frequency: holidays/special occasions only Alcohol type: beer Comment: medicated earlier, see MAR Patient Tobacco Use Status: Former Tobacco user Tobacco use type: Cigarette Years Smoked: 25 e-Cigarette/Vaping Use: Currently Using Second Hand Smoke Exposure: No service: No Current occupational status: employed Current occupational exposures/hazards: No Cognitive needs: No Hearing needs: No Vision needs: No Physical Exam Absence of Cushingoid features. Absence of acromegalic features. Neck exam rev eals nl size thyroid about 15 gms. No thyroid nodules palpable. No carotid bruits present. Lungs CTA. Heart S1 S2, Reg R/R. No M/R/ G. Skin exam reveals absence of vitiligo or acanthosis nigricans. Abdominal exam reveals Soft NT/ND with NA BS. No organomegaly present. Const Other: Absence of Cushingoid features. Absence of acromegalic features. Neck exam reveals nl size thyroid about 15 gms. No thyroid nodules palpable. Heart S1 S2, Reg R/R. No M/R G. Skin exam reveals absence of vitiligo or acanthosis nigricans. Visual exam of foot performed. No ulcerations or open lesions. No inter digit maceration or fissuring. No onychomycosis, no callouses. Sensation normal to monofilament exam. Vibratory sensation is diminished with 128 Hz tuning fork. Neck Other: . Extrem Other: Visual exam of foot performed. No ulcerations or open lesions. No onchomycosis, no callouses.Pulses 2 + distally Sensation intact to monofilament exam. Vibratory sensation sensed is intact with 128 Hz tuning fork Assessment & Plan Assessment & Plan (1) Diabetes mellitus: Comment: IDDM Code(s): E11.9 - Type 2 diabetes mellitus without complications Category: Medical Plan: This is a 44-year-old male with a history of type 2 diabetes being treated with basal-bolus insulin with poor glycemic control and known microv ascular complications namely neuropathy and retinopathy for Plan is to talk to the patient about use of a sensor namely Connie 3+ and bring the sensor to the appointments. Could not make any changes to the regimen today because of lack of data. Went over the correlation of poor glycemic control to development and progression of complications. We will make an appointment with extension educator and finish production manager. Once patient is consistently using the sensor, could consider initiation of a G LP 1 or G LP 1/GI P like Mounjaro in combination with the insulin. Could also consider use of metformin in the future (2) Dyslipidemia: Code(s): E78.5 - Hyperlipidemia, unspecified Category: Medical Plan: Currently on atorvastatin 20 mg q.d. with LDL not at goal. Plan is to Orders: Referrals Diabetes Education Referral E11.9 - Type 2 diabetes mellitus without complications Nutrition/Dietitian Referral E11.9 - Type 2 diabetes mellitus without complications Medications: Refilled FreeStyle Connie 3 Plus Sensor (blood-glucose sensor) as directed every 15 days 2 ea 11RF NS E11.9 - Type 2 diabetes mellitus without complications Coding Level of Care Code Est Pt Level 4 (40993) Diagnoses Type 2 diabetes mellitus with hyperglycemia, with long-term current use of insulin E11.9 Dyslipidemia E78.5
[2025-01-24 15:37] LABS: Glucose, Whole Blood 276 mg/dL (60-115)
--- OUTSIDE RECORDS SUMMARY | 2025-01-24 18:35 | XMS_ITS | Clinical Summary ---
Author Organization [facility] Address [address] [place] [address] Phone Care Team Providers Care Casing Worker Name Role Phone Physician, Pcp Unknown [...] patient's age to complete this topic Insurance [employer] Care Teams Casing Worker Relationship Specialty Start Date End Date Physician, Pcp Unknown PCP - General 07/04/24
== END 2025-01-24 15:49 | disposition home or self-care (01) ==
LOC: HO.ENCR 15:21
PROVIDERS: PCP Internal Medicine; Visit Provider Internal Medicine Endocrinology, Diabetes & Metabolism
DX: E11.9 Type 2 diabetes mellitus without complications (principal); E78.5 Hyperlipidemia, unspecified
CPT/HCPCS: 99214

== ENCOUNTER → 2025-01-24 15:21 | Outpatient (BNVA) | payer OTHER, SELFPAY | PROVIDERS: PCP Internal Medicine; Visit Provider Internal Medicine Endocrinology, Diabetes & Metabolism | DX: E11.9 Type 2 diabetes mellitus without complications (principal) | CPT/HCPCS: 82947 ==

== ENCOUNTER → 2025-02-01 08:59 | Outpatient (REF) | payer OTHER, SELFPAY | LOC: HO.SL 08:59 | PROVIDERS: PCP Internal Medicine; Visit Provider Physician Assistant Medical | DX: G47.33 Obstructive sleep apnea (adult) (pediatric) (principal); G47.19 Other hypersomnia; R53.83 Other fatigue | CPT/HCPCS: 95806 ==

== ENCOUNTER → 2025-02-05 09:13 | Outpatient (BNV) | payer OTHER, SELFPAY | PROVIDERS: PCP Internal Medicine; Visit Provider Psychiatry & Neurology Neurology | DX: G47.33 Obstructive sleep apnea (adult) (pediatric) (principal) | CPT/HCPCS: 95806 ==

== ENCOUNTER 2025-03-06 15:21 | Outpatient (AMB) | payer OTHER, SELFPAY ==
--- NOTE | 2025-03-06 15:34 | MHC.OFFVIS ---
Intake Visit Reasons: Genital Warts SET (NO UA ) Intake Note: Patient is present for ER follow up for Phimosis Urology Medication:None Antibiotic Allergy:NONE Blood Thinner:NONE Slicer Machine Operator Required: No Accompanied by: Self / Same As Patient Allergies No Known Allergies Allergy (Verified 03/06/25 15:35) HPI Comments Details: Andrea is a pleasant male. He is a patient of Dr. Boyer. He seen for the following urologic conditions - phimosis in setting of diabetes and morbid obesity - erectile dysfunction in setting of diabetes Concern regarding penile lesion Has resolved Keep follow-up for testosterone labs Undergoing sleep apnea evaluation Poorly controlled diabetes HbA1c 12.4 Phimosis is controllable with topical therapy Would recommend circumcision once HbA1c under 8.5 Progressive erectile dysfunction in setting of diabetes Tadalafil 5 mg daily Tadalafil 20 mg on demand Medications refilled an explanation provided on how to use PFSH Medical History Phimosis Balanitis Physical exam Hematochezia Increased BMI Epidermal inclusion cyst IBS (irritable bowel syndrome) HSV-2 (herpes simplex virus 2) infection Screening for hypothyroidism Encounter for follow-up surveillance of colon cancer Erectile dysfunction associated with type 2 diabetes mellitus Severe obesity with body mass index (BMI) of 35.0 to 39.9 with comorbidity Essential hypertension Obese Essential hypertension Dyslipidemia Smoker Diabetes mellitus HALI on CPAP Chronic cholecystitis due to cholelithiasis with choledocholithiasis Acalculous cholecystitis Upper abdominal pain Gallstones Surgical History Back abscess Hx laparoscopic cholecystectomy (03/18/20) Status post incision and drainage H/O colonoscopy History of back surgery History of surgery Family History Father Diabetes Mother Diabetes HTN (hypertension) Sister Diabetes Other Heart problem Social History Housing: House Are you a primary director of primary care to a significant other at home: No Do you presently have visiting nurse or other home services: No Alcohol intake: current Alcohol intake frequency: holidays/special occasions only Alcohol type: beer Comment: medicated earlier, see MAR Patient Tobacco Use Status: Former Tobacco user Tobacco use type: Cigarette Years Smoked: 25 e-Cigarette/Vaping Use: Currently Using Second Hand Smoke Exposure: No service: No Current occupational status: employed Current occupational exposures/hazards: No Cognitive needs: No Hearing needs: No Vision needs: No Review of Systems Const Denies chills and Denies fever(s) Card Reports no additional complaints and Denies syncope Resp Denies cough GI Denies abdominal pain and Denies heartburn Reports as per HPI and Denies change in libido Neuro Denies syncope Psych Denies change in libido Endo Denies change in libido Physical Exam Const General: cooperative, healthy appearing, comfortable and no acute distress Orientation/consciousness: patient oriented x3 HEENT Face and sinus: Yes normal facial exam Mouth: moist mucous membranes Neck Neck: Yes normal visual inspection, Yes full ROM and Yes trachea midline Chest Chest palpation & inspection: normal inspection of the chest Resp Effort & Inspection: normal respiratory effort, able to speak in complete sentences and no respiratory distress GI Inspection: Yes normal to inspection Back/Spine/Pelvis Cervical Spine: normal cervical lordosis Thoracic/Lumbar Spine: thoracic and lumbar spine normal to inspection Skin General skin exam: no rashes or lesions noted Neuro General: patient oriented x3, gait normal, tone normal and moves all extremities Extrem General: Yes normal to inspection and Yes capillary refill normal Assessment & Plan Assessment & Plan (1) Phimosis: Code(s): N47.1 - Phimosis Category: Medical (2) Erectile dysfunction associated with type 2 diabetes mellitus: Code(s): E11.69 - Type 2 diabetes mellitus with other specified complication; N52.1 - Erectile dysfunction due to diseases classified elsewhere Category: Medical Plan Keep follow-up appointment Patient Instructions: This note is constructed using voice recognition software. While every effort has been made to ensure accuracy house admin errors may have been included. Imaging studies, laboratory and physical exam results were discussed and reviewed in detail. No major barriers to patient understanding were identified. An opportunity to ask questions regarding the treatment plan was provided. All questions were answered. The patient expressed understanding and agreement with the above treatment plan. The patient is aware they should contact our office by phone for worsening of their current condition or the appearance of new urologic symptoms. Compliance is encouraged with any medications and followup testing that is ordered. It is a privilege to participate in the urologic care of your patient. If you have any questions or concerns regarding treatment for the above conditions, or other urologic issues, please do not hesitate to contact me. The office telephone contact is [phone]. Sincerely, Dr Kleber Irizarry MD, [facility] - Urology Compassionate Specialist Care for the Genitourinary System Coding Level of Care Code Est Pt Level 3 (81990) Diagnoses Phimosis N47.1 Erectile dysfunction associated with type 2 diabetes mellitus E11.69; N52.1
--- OUTSIDE RECORDS SUMMARY | 2025-03-06 16:31 | XMS_ITS | Clinical Summary ---
Author Organization [facility] Address [address] [place] [address] Phone Care Team Providers Care Dragger Name Role Phone Physician, Pcp Unknown Primary [...] patient's age to complete this topic Insurance [facility] Care Teams Dragger Relationship Specialty Start Date End Date Physician, Pcp Unknown PCP - General 07/04/24
== END 2025-03-06 15:49 | disposition home or self-care (01) ==
LOC: HO.HUSH 15:22
PROVIDERS: PCP Internal Medicine; Visit Provider Urology
DX: N47.1 Phimosis (principal); E11.69 Type 2 diabetes mellitus with other specified complication; N52.1 Erectile dysfunction due to diseases classified elsewhere
CPT/HCPCS: 99213